=== PATIENT | male | born 1980 | race Caucasian/White ===

== ENCOUNTER → 2019-11-06 12:11 | Outpatient (BNVA) | payer MEDICARE, SELFPAY | PROVIDERS: PCP Nurse Practitioner Family; Visit Provider Psychiatry & Neurology Psychiatry | DX: F33.1 Major depressive disorder, recurrent, moderate (principal); F17.200 Nicotine dependence, unspecified, uncomplicated | CPT/HCPCS: 99213 ==

== ENCOUNTER → 2020-01-22 12:51 | Outpatient (BNVA) | payer MEDICARE, SELFPAY | PROVIDERS: PCP Nurse Practitioner Family; Visit Provider Psychiatry & Neurology Psychiatry | DX: F17.200 Nicotine dependence, unspecified, uncomplicated (principal); F33.1 Major depressive disorder, recurrent, moderate; F41.1 Generalized anxiety disorder | CPT/HCPCS: 99213 ==

== ENCOUNTER → 2020-04-15 07:42 | Outpatient (BNVA) | payer MEDICARE, SELFPAY | PROVIDERS: PCP Nurse Practitioner Family; Visit Provider Psychiatry & Neurology Psychiatry | DX: F33.1 Major depressive disorder, recurrent, moderate (principal); F41.1 Generalized anxiety disorder; F17.200 Nicotine dependence, unspecified, uncomplicated | CPT/HCPCS: 99213 ==

== ENCOUNTER 2020-05-17 11:13 | Emergency (ER) | payer MEDICARE, SELFPAY ==
[2020-05-17 11:23] VITALS: BMI 29.0
[2020-05-17 11:26] VITALS: BP 153/102; PULSE 86; RESP 18; TEMP 36.8; O2SAT 95
--- NOTE | 2020-05-17 11:38 | CTR_ITS ---
PROCEDURE INFORMATION: Exam: CT Abdomen And Pelvis Without And With Contrast Exam date and time: 05/17/2020 11:42 AM Age: 39 years old Clinical indication: Abdominal pain; Patient HX: Hematuria lower abd pain; Additional info: Stone v infection TECHNIQUE: Imaging protocol: Computed tomography of the abdomen and pelvis without and with intravenous contrast. Radiation optimization: All CT scans at this facility use at least one of these dose optimization techniques: automated exposure control; mA and/or kV adjustment per patient size (includes targeted exams where dose is matched to clinical indication); or iterative reconstruction. Contrast material: OMNI 300; Contrast volume: 95 ml; Contrast route: INTRAVENOUS (IV); COMPARISON: CT Abdomen/Pelvis Renal [id number] 09/03/2019 10:10 PM RADIATION DOSE METRICS: Total DLP (mGy-cm): 1399.25 FINDINGS: Lungs: Lingular calcified pulmonary parenchymal granuloma. Mediastinal space: Distal thoracic esophageal wall thickening redemonstrated. Liver: A minor arterial phase perfusion defect of the hepatic left lobe medial segment is noted adjacent to the falciform ligament fissure, a normal variant. Gallbladder and bile ducts: Gallbladder luminal distention is present measuring 4.8 cm. Mildly hyperattenuating intraluminal gallbladder sludge. No intraluminal calculus identified. Pancreas: Severe pancreatic atrophy. Spleen: The spleen is borderline enlarged measuring 13.1 cm longitudinally. Adrenals: Normal. No mass. Kidneys and ureters: Right renal calculi (2), the largest in the upper pole measuring 2.3 mm. No evidence of obstructive uropathy. Stomach and bowel: Unremarkable. No obstruction. No mucosal thickening. Appendix: The vermiform appendix is normal. Intraperitoneal space: Unremarkable. No free air. No significant fluid collection. Vasculature: Infrarenal abdominal aortic aneurysm is present measuring 2.9 cm AP dimension, 3.3 cm transverse dimension (previously 2.9 x 3.1 cm, remeasured). There is no evidence of rupture or leakage. Enhancing aortic wall measuring up to 5.9 mm thickness (series 3, image 45; compare series 2, image 45) Severe proximal celiac artery stenosis. Severe proximal right renal artery stenosis. Moderate proximal left renal artery stenosis. Left pelvic phleboliths. The iliac arteries show mild bilateral atherosclerotic calcifications without evidence of aneurysm. The main portal vein measures 16.3 mm. Lymph nodes: No enlarged lymph nodes. Bladder: The urinary bladder is partially decompressed and somewhat difficult to assess. Reproductive: Unremarkable as visualized. Bones/joints: Unremarkable. No acute fracture. Soft tissues: Unremarkable. CT/CT abdomen pelvis wo/w [id number] IMPRESSION: 1. Right renal calyceal lithiasis. 2. Infrarenal abdominal aortic aneurysm (slight interval increase in size), which is likely secondary to aortitis. Clinical correlation is recommended. 3. Severe proximal celiac artery stenosis. 4. Severe proximal right renal artery stenosis. 5. Moderate proximal left renal artery stenosis. 6. Distended gallbladder with gallbladder sludge. Gallbladder sonography may be helpful if clinically indicated. 7. Possible portal venous hypertension. 8. Borderline splenomegaly. 9. Distal thoracic esophagitis again suggested. Clinical correlation with the patient's specific symptomatology is recommended. Radiation Dose CTDIVOL = (mGy): DLP = 1399.25 (mGy-cm)
[2020-05-17 11:52] VITALS: RESP 18; O2SAT 98
[2020-05-17] MEDS: morphine 4 mg/mL SDV 1 mL IVP (11:52)
[2020-05-17] MEDS: ondansetron 2 mg/ML SDV 2 mL 4 MG IVP (11:53)
[2020-05-17] MEDS: sodium chloride 0.9% 1,000 ML 999 ML IV (11:53)
[2020-05-17 12:05] LABS: Basophils # 0.1 10^3/uL (0.0-0.1); Basophils % 0.6 %; Eosinophils # 0.1 10^3/uL (0.0-0.8); Eosinophils % 1.1 %; Hematocrit 46.7 % (42.0-52.0); Lymphocytes # 1.8 10^3/uL (0.8-4.8); Lymphocytes % 20.9 %; Mean Corpuscular HGB Conc 32.1 g/dL (30.0-36.0); Mean Corpuscular Hemoglobin 31.4 pg (28.0-34.0); Mean Corpuscular Volume 97.9 fL (80-94); Mean Platelet Volume 10.6 fL (7.4-10.4); Monocytes # 0.4 10^3/uL (0.2-0.9); Monocytes % 5.2 %; Neutrophils # 6.07 10^3/uL (1.8-7.7); Neutrophils % 71.8 %; Nucleated Red Blood Cells % 0 %; Platelet Count 239 10^3/cmm (130-400); Red Blood Count 4.77 10^6/uL (4.1-5.3); Red Cell Distribution Width 14.1 % (12.1-15.1); White Blood Count 8.5 10^3/uL (4.0-10.0)
[2020-05-17] MEDS: iohexol 300 mg/mL 100 mL Btl IV (12:05)
[2020-05-17 12:15] LABS: Alanine Aminotransferase 27 U/L (0-41); Albumin Level 4.8 g/dL (3.5-5.2); Alkaline Phosphatase 93 IU/L (40-130); Aspartate Amino Transferase 22 U/L (0-40); Blood Urea Nitrogen 8 mg/dL (6-20); Calcium 9.9 mg/dL (8.5-10.5); Carbon Dioxide 26 mmol/L (22-29); Chloride 99 mmol/L (98-107); Globulin 3.3 g/dL (1.3-4.6); Glomerular Filtration Rate 107.6 mL/min (90-130); Glucose 100 mg/dL (65-115); Osmolality Calculated 278 mOsm/kg (285-295); Sodium 136 mmol/L (136-145); Total Bilirubin 0.6 mg/dL (0.15-1.2); Total Protein 8.1 g/dL (6.6-8.7)
[2020-05-17 12:16] LABS: Lactate (Lactic Acid level) 0.9 mmol/L (0.5-2.2)
--- NOTE | 2020-05-17 12:39 | W.ED.ABDPA2 ---
HPI - Abdominal Pain General: Chief Complaint: Abdominal Pain Stated Complaint: abd pain/poss kidney stones Time Seen by Provider: 05/17/20 11:32 History of Present Illness: HPI narrative: patient presents with a complaint of suprapubic abdominal pain. He also reports hematuria and also some mucus in his urine. A history of kidney stones and states the symptoms are consistent with what he has had in the past. MD elicited complaint: abdominal pain Pertinent past history: kidney stones Onset (ago): day(s) Pain Consistency: constant Location: Suprapubic Severity: similar to previous episodes Quality: stabbing and sharp Radiation: none Migration to: no migration Exacerbating factors: movement Relieving factors: nothing Associated Symptoms: Reports nausea Review of Systems General: Reports: 10 or more systems reviewed and unremarkable except in HPI and below GI: Reports: nausea PFSH ED PFSH: Medical History High blood pressure Surgical History H/O heart artery stent Social History Smoking and tobacco status: current every day smoker cigarettes Packs smoked per day: 1 Years cigarettes smoked: 20 Quit status (tobacco): has tried quititng Number of times tried to quit tobacco: 2 Second hand smoke exposure: Yes Smoking risk assessment/counseling performed?: No Physical Exam Const: COMMON NORMALS: no acute distress, patient oriented x3, no limitations and alert HENMT: COMMON NORMALS: normocephalic, atraumatic, external ears normal and Normal external nose present HEAD & SCALP: normocephalic and atraumatic FACE & SINUS: normal facial exam NOSE: Normal external nose present EXTERNAL EAR: Yes external ears normal MOUTH: Normal oral and palatal mucosa present Neck/C-Spine: COMMON NORMALS: full ROM, no lymphadenopathy, supple, no meningeal signs and no JVD GENERAL: Yes normal visual inspection Resp: COMMON NORMALS: normal respiratory effort, No retractions, No use of accessory muscles and clear to auscultation bilaterally AUSCULTATION: clear to auscultation bilaterally Cardio: COMMON NORMALS: no JVD, regular rate and regular rhythm RATE: regular rate RHYTHM: regular rhythm GI: COMMON NORMALS: Normal to inspection, nondistended, normoactive bowel sounds present, Soft to palpation, No hepatosplenomegaly present and no masses INSPECTION: Yes normal to inspection AUSCULTATION: Yes normoactive bowel sounds PALPATION: Yes Soft to palpation and Yes No hepatosplenomegaly present PERCUSSION: normal to percussion : COMMON NORMALS: Yes no CVA tenderness BLADDER/KIDNEY EXAM: Yes no CVA tenderness Back/Pelvis: COMMON NORMALS: no CVA tenderness, thoracic and lumbar spine normal to inspection, no thoracic nor lumbar tenderness, thoraco-lumbar ROM normal and straight leg raise negative bilaterally Extremity: COMMON NORMALS: normal to inspection, full ROM, capillary refill normal, no joint enlargement, no clubbing, cyanosis or edema, no calf tenderness and no pedal edema Neuro: COMMON NORMALS: patient oriented x3, moves all extremities, no focal motor deficits and no sensory deficits noted SENSORIUM/ORIENTATION: Yes alert MENINGEAL SIGNS: Yes no meningeal signs Psych: COMMON NORMALS: mental status grossly normal, Normal thought process present, cooperative, normal affect and speech normal SPEECH: Yes normal speech THOUGHT PROCESS: Normal thought process present Skin: COMMON NORMALS: no rashes or lesions noted, no wounds, turgor normal, no jaundice, no petechiae and no mottling GENERAL SKIN EXAM: no rashes or lesions noted and turgor normal Course Vital Signs: Vital signs: Vital Signs Temperature 98.2 F 05/17/20 11:26 Pulse Rate 86 05/17/20 11:26 Respiratory Rate 18 05/17/20 13:32 Blood Pressure 153/102 05/17/20 11:26 Pulse Oximetry 98 05/17/20 13:32 MDM - Abdominal Pain Lab Data: Labs: Lab Results 05/17/20 05/17/20 05/17/20 Range/Units 11:41 11:41 11:45 WBC 8.5 (4.0-10.0) 10^3/ uL RBC 4.77 (4.1-5.3) 10^6/u L Hgb 15.0 (11.7-16.6) g/dL Hct 46.7 (42.0-52.0) % MCV 97.9 H (80-94) fL MCH 31.4 (28.0-34.0) pg MCHC 32.1 (30.0-36.0) g/dL RDW 14.1 (12.1-15.1) % Plt Count 239 (130-400) 10^3/c mm MPV 10.6 H (7.4-10.4) fL Neut % (Auto) 71.8 % Lymph % (Auto) 20.9 % [place] % (Auto) 5.2 % Eos % (Auto) 1.1 % Baso % (Auto) 0.6 % Neut # (Auto) 6.07 (1.8-7.7) 10^3/u L Lymph # (Auto) 1.8 (0.8-4.8) 10^3/u L [place] # (Auto) 0.4 (0.2-0.9) 10^3/u L Eos # (Auto) 0.1 (0.0-0.8) 10^3/u L Baso # (Auto) 0.1 (0.0-0.1) 10^3/u L Nucleated RBC % (a uto) 0 % Nucleated RBCs # 0.0 /100WBC Sodium 136 (136-145) mmol/L Potassium 4.0 (3.5-5.1) mmol/L Chloride 99 (98-107) mmol/L Carbon Dioxide 26 (22-29) mmol/L Anion Gap 15.0 (5-19) BUN 8 (6-20) mg/dL Creatinine 0.8 (0.7-1.2) mg/dL GFR Calculation 107.6 (90-130) mL/min Glucose 100 (65-115) mg/dL Calculated Osmolal ity 278 L (285-295) mOsm/k g Lactate 0.9 (0.5-2.2) mmol/L Calcium 9.9 (8.5-10.5) mg/dL Total Bilirubin 0.6 (0.15-1.2) mg/dL AST 22 (0-40) U/L ALT 27 (0-41) U/L Alkaline Phosphata se 93 (40-130) IU/L Total Protein 8.1 (6.6-8.7) g/dL Albumin 4.8 (3.5-5.2) g/dL Globulin 3.3 (1.3-4.6) g/dL Urine Color (Yellow) Urine Appearance (CLEAR) Urine pH (5-7) Ur Specific Gravit y (1.005-1.030) Urine Protein (Negative) Urine Glucose (UA) (Normal) Urine Ketones (Negative) Urine Blood (Negative) Urine Nitrate (Negative) Urine Bilirubin (NEGATIVE) Urine Urobilinogen (Negative) mg/dL Ur Leukocyte Amelia ase (Negative) 05/17/20 Range/Units 13:13 WBC (4.0-10.0) 10^3/ uL RBC (4.1-5.3) 10^6/u L Hgb (11.7-16.6) g/dL Hct (42.0-52.0) % MCV (80-94) fL MCH (28.0-34.0) pg MCHC (30.0-36.0) g/dL RDW (12.1-15.1) % Plt Count (130-400) 10^3/c mm MPV (7.4-10.4) fL Neut % (Auto) % Lymph % (Auto) % [place] % (Auto) % Eos % (Auto) % Baso % (Auto) % Neut # (Auto) (1.8-7.7) 10^3/u L Lymph # (Auto) (0.8-4.8) 10^3/u L [place] # (Auto) (0.2-0.9) 10^3/u L Eos # (Auto) (0.0-0.8) 10^3/u L Baso # (Auto) (0.0-0.1) 10^3/u L Nucleated RBC % (a uto) % Nucleated RBCs # /100WBC Sodium (136-145) mmol/L Potassium (3.5-5.1) mmol/L Chloride (98-107) mmol/L Carbon Dioxide (22-29) mmol/L Anion Gap (5-19) BUN (6-20) mg/dL Creatinine (0.7-1.2) mg/dL GFR Calculation (90-130) mL/min Glucose (65-115) mg/dL Calculated Osmolal ity (285-295) mOsm/k g Lactate (0.5-2.2) mmol/L Calcium (8.5-10.5) mg/dL Total Bilirubin (0.15-1.2) mg/dL AST (0-40) U/L ALT (0-41) U/L Alkaline Phosphata se (40-130) IU/L Total Protein (6.6-8.7) g/dL Albumin (3.5-5.2) g/dL Globulin (1.3-4.6) g/dL Urine Color Yellow (Yellow) Urine Appearance Clear (CLEAR) Urine pH 7 (5-7) Ur Specific Gravit y 1.000 L (1.005-1.030) Urine Protein Neg (Negative) Urine Glucose (UA) Norm (Normal) Urine Ketones Negative (Negative) Urine Blood Neg (Negative) Urine Nitrate Negative (Negative) Urine Bilirubin Neg (NEGATIVE) Urine Urobilinogen Norm (Negative) mg/dL Ur Leukocyte Amelia ase Negative (Negative) Discharge Plan Discharge Patient Disposition: Home Clinical Impression: Arteriosclerotic vascular disease Abdominal pain Qualifiers: Abdominal location: unspecified location Qualified Code(s): R10.9 - Unspecified abdominal pain Condition: Stable Prescriptions: New Tylenol-Codeine #3 300-30 mg tablet 1 tab PO Q6H PRN (Reason: pain) Qty: 12 RF: 0 Lipitor 80 mg tablet 80 mg PO DAILY Qty: 30 RF: 1 No Action cyclobenzaprine 10 mg tablet 10 mg PO TID RF: 0 pantoprazole [Protonix] 20 mg tablet,delayed release (DR/EC) 20 mg PO .HS RF: 0 gabapentin 600 mg tablet 600 mg PO TID RF: 0 modafinil 200 mg tablet 400 mg PO QAM Qty: 60 RF: 2 duloxetine [Cymbalta] 30 mg capsule,delayed release(DR/EC) 60 mg PO DAILY Qty: 60 RF: 2 buspirone 10 mg tablet 10 mg PO TID Qty: 90 RF: 2 clopidogrel [Plavix] 75 mg tablet 75 mg PO DAILY Qty: 90 RF: 3 metoprolol succinate [Toprol XL] 25 mg tablet extended release 24 hr 25 mg PO BID Qty: 60 RF: 3 simvastatin 40 mg tablet 40 mg PO DAILY Qty: 30 RF: 5 Discharge Orders: Discharge Order (Routine); Ordered 05/17/20 Ordered By: Constantino Hoang Referrals: [facility] [Other] John Hayward NP [Primary Care Provider] - Patient Instructions: Cholecystitis (ED), Abdominal Pain (ED) Coding Level of Care Code ED Digital Design Engineer for Chg Fwd Exam Comprehensive
[2020-05-17 13:30] LABS: Add Urine Microscopic? NO
[2020-05-17 13:32] VITALS: RESP 18; O2SAT 98
[2020-05-17] MEDS: HYDROmorphone 1 mg/mL INJ 1 mL IVP (13:32)
[2020-05-17 13:38] LABS: Bilirubin Urine Neg (NEGATIVE); Blood Urine Neg (Negative); Glucose Urine UA Norm (Normal); Ketones Urine Negative (Negative); Leukocyte Esterase Urine Negative (Negative); Nitrate Urine Negative (Negative); Protein Urine Neg (Negative); Urine Appearance Clear (CLEAR); Urine Color Yellow (Yellow); Urobilinogen Urine Norm (Negative); pH Urine 7 (5-7)
--- NOTE | 2020-05-17 14:57 | P.CONIM_ITS ---
Providers/Reason For Consult Consulting Physican/Specialty*: Eleazar Rodriguez hospitalist Reason for Consult*: Abdominal pain Requesting Physcian: Joan WHEAT Primary Care Provider: John Hayward NP History of Present Illness History of Present Illness Tomas Pineda is a 39 year old male that presented to the emergency department with complaints of abdominal pain. Secondary to his abnormal CT findings, I was asked to see him. Patient reports he has had abdominal discomfort, perhaps the last several days. He reports this felt as if he had kidney stones again. He states 1 to 2 days ago he had some hematuria, and some mucus in his urine. Today he reports discomfort in the head and base of his penis, when he urinates. He reports that this can go away and fade slowly after urinating. He denies any abdominal pain to me currently. He denies any nausea to me. He denies any fever. While in the emergency department they checked a bladder scan demonstrating no urinary retention, and patient reports he has no blood in his urine currently. During the time I was taking his history and physical and asked the patient about drug use he got visibly upset, reporting that he does not use drugs and he is very offended. As I was talking about his social history in regards to caffeine intake the same occurred. Review of Systems General: Reports: 10 or more systems reviewed and unremarkable except in HPI and below Const: Denies: fever(s), chills or change in appetite Eyes: Denies: change in vision ENMT: Denies: throat pain Card: Denies: chest pain Resp: Denies: dyspnea GI: Denies: abdominal pain, nausea or constipation : Reports: difficulty urinating, dysuria and hematuria; Denies: flank pain or testicular pain Musc: Denies: neck pain Skin/Breast: Denies: rash Neuro: Denies: headache(s) Psych: Denies: anxiety or depression Endo: Denies: polyuria Deandre/Lymph: Denies: easy bruising All/Imm: Denies: urticaria Meds/Allergies Home Medications and Allergies Home Medications Medication Instructions Recorded Confirmed Last Taken Type gabapentin 600 mg tablet 600 mg PO TID 10/28/19 01/21/20 Unknown History cyclobenzaprine 10 mg tablet 10 mg PO TID 11/05/19 01/21/20 Unknown History pantoprazole 20 mg tablet,delayed 20 mg PO .HS tab 01/21/20 01/21/20 Unknown History release clopidogrel 75 mg tablet 75 mg PO DAILY #90 tab 02/26/20 Unknown Rx metoprolol succinate 25 mg 25 mg PO BID #60 tab 02/26/20 Unknown Rx tablet,extended release 24 hr simvastatin 40 mg tablet 40 mg PO DAILY #30 tab 02/26/20 Unknown Rx buspirone 10 mg tablet 10 mg PO TID #90 tab 04/15/20 04/15/20 Unknown Rx duloxetine 30 mg capsule,delayed 60 mg PO DAILY #60 cap 04/15/20 04/15/20 Unknown Rx release modafinil 200 mg tablet 400 mg PO QAM #60 tab 04/15/20 04/15/20 Unknown Rx acetaminophen-codeine 1 tab PO Q6H PRN #12 tab 05/17/20 Unknown Rx [Tylenol-Codeine #3] atorvastatin [Lipitor] 80 mg PO DAILY #30 tab 05/17/20 Unknown Rx Allergies Allergy/AdvReac Type Severity Reaction Status Date / Time naproxen AdvReac Intermediate Makes sick Verified 05/17/20 11:28 to stomach PFSH Acute PFSH: Medical History (Updated 05/17/20 @ 15:03 by Eleazar Rodriguez MD) Abdominal aortic aneurysm Coronary artery disease Generalized anxiety disorder High blood pressure Major depressive disorder, recurrent, moderate Nephrolithiasis Nicotine dependence, unspecified, uncomplicated Surgical History H/O heart artery stent Family History (Updated 05/17/20 @ 15:03 by Eleazar Rodriguez MD) Other CAD (coronary artery disease) Social History (Updated 05/17/20 @ 15:04 by Eleazar Rodriguez MD) Smoking and tobacco status: current every day smoker cigarettes Packs smoked per day: 1 Years cigarettes smoked: 20 Quit status (tobacco): has tried quititng Number of times tried to quit tobacco: 2 Second hand smoke exposure: Yes Smoking risk assessment/counseling performed?: No Alcohol intake: former Substance/Drug Use: never Vitals/I&O/Wt Last Vital Signs Temp 98.2 F 05/17/20 11:26 Pulse 86 05/17/20 11:26 Resp 18 05/17/20 13:32 BP 153/102 05/17/20 11:26 Pulse Ox 98 07/26/20 13:32 05/16/20 05/17/20 05/17/20 22:59 06:59 14:59 Intake Total 1000 / 1000 Balance 1000 / 1000 Weight last 48 hrs Weight 83.915 kg Physical Exam Narrative: EXAM NARRATIVE: General exam is a white male, no distress HEENT: Pupils equally round. Oropharynx clear. Neck is supple no lymphadenopathy or thyromegaly Cardiovascular regular rate and rhythm without murmur, no S3 or S4 Lungs clear no wheezing or crackles. Abdomen is soft nontender with positive bowel sounds. No obvious organomegaly. I cannot elicit any tenderness to palpation of all 4 quadrants of the abdomen. exam demonstrates a normal circumcised male. Testicular exam is normal. There is no evidence of hernia. There is no testicular pain or mass. Urethral meatus appears normal without any significant drainage currently. Extremities no cyanosis clubbing or edema, cap refill brisk Skin without rash Neuro no focal deficits Data Micro: Micro: Microbiology 05/17/20 11:55 Blood Culture - Pr eliminary Blood SPECIMEN [facility] 05/17/20 11:45 Blood Culture - Pr eliminary Blood SPECIMEN [facility] Other Data: Other data: Liver function tests are normal. Urinalysis is normal. Lactate is 0.9. CT abdomen pelvis demonstrates right renal lithiasis, slight enlargement of infrarenal abdominal aortic aneurysm with no evidence of dissection. Celiac artery stenosis, proximal right renal artery stenosis, moderate left renal artery stenosis, gallbladder with sludge, borderline splenomegaly, distal esophagitis are noted. A&P Assessment and plan (1) Abdominal pain: In description with me he denied any abdominal pain. He reported the discomfort was in his penis, when he urinated. He has seen blood when he urinated. This is all consistent with urethral fissure. I cannot say that he has not passed a stone recently. I discussed other causes of this such as trauma. As he has some discomfort in general in his bladder following passing of urine he could certainly use AZO to see if that has some effect. I discussed this with the emergency department physician. It does not appear that this discomfort is related to his vascular disease. Status: Acute Qualifiers: Abdominal location: unspecified location Qualified Code(s): R10.9 - Unspecified abdominal pain (2) Arteriosclerotic vascular disease: He has a tremendous amount of vascular disease with his aorta, celiac, renal arteries being affected and him having coronary disease. He will need to follow-up with his sawmill equipment operator regarding this. I recommend discontinuing his lovastatin and changing to Lipitor 80 mg daily. I have discussed this with his ER physician. I recommend not smoking, decrease tobacco but the patient became visibly upset with this recommendation along with when I talked to him regarding caffeine and during his social history ask if he had any drug use. I am not sure that he will take any recommendations such as this to heart. Status: Acute Additional A&P Information Coronary artery disease. Patient is to continue his Plavix Hyperlipidemia, I recommend changing to Lipitor, high-dose secondary to progression of vascular disease Hypertension. Blood pressure elevated today. I discussed with the patient I recommend he discontinue his modafinil GERD with history of esophagitis on CT scan. Continue Protonix. Consider follow-up with primary care provider for consideration of EGD Depression/anxiety. This may be an obstacle to changing his lifestyle in regards to tobacco. He visibly became upset with any kind of questioning of tobacco use. Consult Attestations Medical Necessity Statement: Not applicable Time Spent in Patient Care: Greater than 35 minutes Coding Level of Care Code Acute Adult Education Professional for Chg Fwd Diagnoses Abdominal pain R10.9 Abdominal location: unspecified location Arteriosclerotic vascular disease I70.90
[2020-05-17 15:05] VITALS: BP 158/94; PULSE 84; RESP 16; O2SAT 96
== END 2020-05-17 15:07 | disposition home or self-care (01) ==
PROVIDERS: Emergency Provider Family Medicine; PCP Nurse Practitioner Family
DX: I70.90 Unspecified atherosclerosis (principal); Z79.02 Long term (current) use of antithrombotics/antiplatelets; F17.210 Nicotine dependence, cigarettes, uncomplicated
CPT/HCPCS: 12345; 36415; 74178; 80053; 81003; 83605; 85025; 87040; 87491; 87591; 96360; 96361; 96374; 96375; 99283; J1170; J2270; J2405; J7030; Q9967

== ENCOUNTER 2020-06-09 06:59 | Outpatient (CLI) | payer MEDICARE, SELFPAY ==
--- NOTE | 2020-06-09 07:07 | US_ITS ---
WS: [id number] RIGHT UPPER QUADRANT ULTRASOUND HISTORY: GALLBLADDER DISEASE COMPARISON: None available. Liver: 19.2 cm in length. Moderate enlargement the liver with low attenuation from hepatic steatosis. Well-rounded hypoechoic area near the gallbladder is probably an area of hepatic steatosis. No mass was identified on the recent CT from 05/17/2020. Gallbladder: Well distended gallbladder with no stones or sludge identified. Gallbladder is slightly enlarged but there is no pericholecystic fluid or gallbladder wall thickening. CBD: 0.5 cm Pancreas: The visualized. Right kidney: 10.2 cm in length. Normal echogenicity with no mass or hydronephrosis. Aorta and IVC: Unremarkable. No ascites. US/US abdomen limited [id number] IMPRESSION: 1. Mildly hydropic gallbladder without stones or sludge or evidence for acute cholecystitis. 2. Moderate hepatomegaly and hepatic steatosis.
== END 2020-06-09 07:00 | disposition home or self-care (01) ==
PROVIDERS: PCP Nurse Practitioner Family; Visit Provider Nurse Practitioner Family
DX: K82.9 Disease of gallbladder, unspecified (principal); R16.0 Hepatomegaly, not elsewhere classified; K76.0 Fatty (change of) liver, not elsewhere classified
CPT/HCPCS: 76705

== ENCOUNTER 2020-06-11 07:04 | Outpatient (CLI) | payer MEDICARE, SELFPAY ==
--- NOTE | 2020-06-11 07:15 | NM_ITS ---
WS: [id number] EXAM: NM hepatobiliary w phar* [id number] DATE OF EXAMINATION: 06/11/2020, 0925 hours COMPARISON: Right upper quadrant ultrasound from 06/09/2020. HISTORY: 39 years old with gallbladder disease. Complaining of right upper quadrant abdominal pain. TECHNIQUE: 8.2 mCi of technetium 99m mebrofenin was injected intravenously. Serial scintigraphic images overlyin g the right upper quadrant were obtained through 60 minutes. Subsequently 8 ounces of Ensure was calista sted with ejection fraction calculated. FINDINGS: There is normal uptake of the tracer by the liver parenchyma. Tracer activity seen within the gallbla dder as well as the biliary system by the 5 minute frame. No tracer activity is seen within the bowel by 60 minutes but the gallbladder continues to uptake tracer activity. After ingestion of Ensure the ejection fraction is calculated at 82%. NM/NM hepatobiliary w phar* [id number] IMPRESSION: Normal hepatobiliary scan. No findings of obstruction. Normal ejection fraction estimated at 82%.
== END 2020-06-11 07:05 | disposition home or self-care (01) ==
PROVIDERS: PCP Nurse Practitioner Family; Visit Provider Nurse Practitioner Family
DX: K82.9 Disease of gallbladder, unspecified (principal)
CPT/HCPCS: 78227; A9537

== ENCOUNTER 2020-08-17 16:27 | Emergency (ER) | payer MEDICARE, SELFPAY ==
[2020-08-17 16:51] VITALS: BP 169/101; PULSE 81; RESP 14; TEMP 36.8; O2SAT 99; BMI 29.0
--- NOTE | 2020-08-17 17:14 | W.ED.BACK ---
HPI - Back Pain/Injury General: Chief Complaint: Back Pain/Injury Stated Complaint: Back Pain Time Seen by Provider: 08/17/20 17:05 History of Present Illness: HPI Narrative: Patient comes in complain about back pain with pain radiating down both legs. Patient has a history of chronic low back pain bulging herniated disc. Has been in pain clinic for many years and was fired 2 years ago. Has appoint with pain clinic this coming week in [place]. Patient said he was lifting a motor yesterday and felt a pull on his back and is hurt ever since would like something to help with his discomfort. Denies any neurological deficits. MD elicited complaint: back pain Pertinent past history: prior back pain Onset (ago): day(s) Timing: constant Severity: moderate Similar Symptoms Previously: Yes Quality: aching Location: lumbar spine Radiation: buttocks, left upper leg and right upper leg Exacerbating factors: movement Relieving factors: immobilization Context: while lifting and turning/twisting Associated symptoms: Reports no associated symptoms; Deny abdominal pain, chills, fever(s), nausea or vomiting Review of Systems Const: Denies: fever(s), chills or body aches Eyes: Denies: change in vision or blurry vision ENMT: Denies: throat pain or nasal congestion Card: Denies: chest pain or dyspnea on exertion Resp: Denies: dyspnea, productive cough or non-productive cough GI: Denies: abdominal pain, nausea or vomiting : Denies: difficulty urinating Musc: Reports: back pain; Denies: extremity pain Skin/Breast: Denies: rash Neuro: Denies: headache(s) Psych: Denies: anxiety or depression Deandre/Lymph: Denies: easy bruising PFSH ED PFSH: Medical History (Updated 08/17/20 @ 17:14 by SHASHANK Shea) Abdominal aortic aneurysm Coronary artery disease Generalized anxiety disorder High blood pressure Major depressive disorder, recurrent, moderate Nephrolithiasis Nicotine dependence, unspecified, uncomplicated Surgical History (Updated 06/08/20 @ 12:53 by Malika Adam LPN) H/O heart artery stent Family History (Updated 06/08/20 @ 12:53 by Malika Adam LPN) Other CAD (coronary artery disease) Denies family history of Diabetes Hyperlipidemia Hypertension Social History (Updated 06/08/20 @ 12:54 by Malika Adam LPN) Smoking and tobacco status: current every day smoker cigarettes Packs smoked per day: 1 Years cigarettes smoked: 20 Quit status (tobacco): has tried quititng Number of times tried to quit tobacco: 2 Second hand smoke exposure: Yes Smoking risk assessment/counseling performed?: No Alcohol intake: former Physical Exam Const: COMMON NORMALS: no acute distress, average body habitus and patient oriented x3 HENMT: COMMON NORMALS: normocephalic HEAD & SCALP: normal to inspection and normocephalic FACE & SINUS: normal facial exam Eye: COMMON NORMALS: conjunctivae normal GENERAL EYE: appearance normal, both eyes and all related structures CONJUNCTIVA: Yes conjunctivae normal Neck/C-Spine: COMMON NORMALS: no JVD Chest: COMMONS NORMALS: normal inspection of the chest Resp: COMMON NORMALS: normal respiratory effort Cardio: COMMON NORMALS: no JVD GI: COMMON NORMALS: Normal to inspection, nondistended, normoactive bowel sounds present Back/Pelvis: LUMBAR SPINE/LOWER BACK: Yes straight leg raise positive right and Yes straight leg raise positive left Extremity: COMMON NORMALS: normal to inspection Neuro: COMMON NORMALS: patient oriented x3 Course Vital Signs: Vital signs: Vital Signs Temperature 98.2 F 08/17/20 16:51 Pulse Rate 81 08/17/20 16:51 Respiratory Rate 14 08/17/20 16:51 Blood Pressure 169/101 08/17/20 16:51 Pulse Oximetry 99 08/17/20 16:51 Discharge Plan Discharge Patient Disposition: Home Clinical Impression: Lumbar radiculopathy Condition: Stable Prescriptions: New prednisone 20 mg tablet 60 mg PO DAILY 5 Days Qty: 15 RF: 0 baclofen 10 mg tablet 10 mg PO TID Qty: 14 RF: 0 No Action pantoprazole [Protonix] 20 mg tablet,delayed release (DR/EC) 40 mg PO .HS RF: 0 gabapentin 600 mg tablet 800 mg PO TID RF: 0 buspirone 10 mg tablet 10 mg PO TID Qty: 90 RF: 2 clopidogrel [Plavix] 75 mg tablet 75 mg PO DAILY Qty: 90 RF: 3 simvastatin 40 mg tablet 40 mg PO DAILY Qty: 30 RF: 5 metoprolol succinate [Toprol XL] 25 mg tablet extended release 24 hr 25 mg PO BID Qty: 60 RF: 3 Discharge Orders: Discharge Order (Routine); Ordered 08/17/20 Ordered By: Ender Travis Referrals: John Hayward NP [Primary Care Provider] - Discharge Diet: Usual diet Discharge Activity: Increase activity as tolerated Patient Instructions: Chronic Back Pain (ED) Activity Restrictions/Additional Instructions: Follow-up with medical provider as directed. Take medications as prescribed. Return to the ER or your medical provider if condition worsens. Please read and understand discharge instructions. If any questions ask please. No lifting over 10 pounds for next 4 weeks apply ice to back as needed follow-up pain clinic as scheduled Discharge Date/Time: 08/17/20 17:29 Coding Level of Care Code ED Advertising Strategist for Chg Fwd Exam Comprehensive
[2020-08-17] MEDS: predniSONE 20 mg Tablet 60 MG PO (17:20)
[2020-08-17] MEDS: ketorolac 60 mg/2 mL INJ IM (17:22)
== END 2020-08-17 17:29 | disposition home or self-care (01) ==
PROVIDERS: Emergency Provider Nurse Practitioner Family; PCP Nurse Practitioner Family
DX: M54.16 Radiculopathy, lumbar region (principal); Z79.02 Long term (current) use of antithrombotics/antiplatelets; I25.10 Atherosclerotic heart disease of native coronary artery without angina pectoris; F17.210 Nicotine dependence, cigarettes, uncomplicated
CPT/HCPCS: 12345; 96372; 99281; 99283; J1885; J7512

== ENCOUNTER 2021-05-06 14:38 | Emergency (ER) | payer MEDICARE, SELFPAY ==
[2021-05-06 15:37] VITALS: BP 158/101; PULSE 82; RESP 18; TEMP 36.7; O2SAT 96; BMI 28.1
--- NOTE | 2021-05-06 15:44 | ED_ITS ---
HPI - Dental/Oral General: Chief complaint: Dental/Oral Stated complaint: toothache Time Seen by Provider: 05/06/21 15:43 History of Present Illness: HPI Narrative: Patient is a 40-year-old male comes to the ED with dental pain. Dental pain started approximately 3 days ago. Patient says he broke off his right back molar 3 days ago and that is when the pain started. Pain has progressed and gotten worse. He rates his pain here in the ED at 10 out of 10 says it is constant. He tried some oral lidocaine rinse that did not help. Today the pain is radiating up into his face and head as well. Patient says he has an appointment scheduled with a dentist on Monday, May 09. Associated symptoms: Denies fever(s) or odynophagia Review of Systems Const: Denies: fever(s), chills or fatigue Eyes: Denies: change in vision or eye discomfort ENMT: Reports: dental pain; Denies: throat pain, odynophagia, nasal discharge or nasal congestion Card: Denies: chest pain, palpitations, edema, swelling of feet/ankles, dyspnea on exertion or orthopnea Resp: Denies: dyspnea, productive cough or non-productive cough GI: Denies: abdominal pain, nausea, vomiting, diarrhea, constipation or hematochezia : Denies: flank pain, difficulty urinating, dysuria or hematuria Musc: Denies: neck pain, back pain or extremity swelling Skin/Breast: Denies: rash or new lesions Neuro: Denies: headache(s), numbness in extremities or weakness in extremities [facility] ED PFSH: Medical History Abdominal aortic aneurysm Coronary artery disease Generalized anxiety disorder High blood pressure Major depressive disorder, recurrent, moderate Nephrolithiasis Nicotine dependence, unspecified, uncomplicated Surgical History H/O heart artery stent Family History Other CAD (coronary artery disease) Denies family history of Diabetes Hyperlipidemia Hypertension Social History Smoking and tobacco status: current every day smoker cigarettes Packs smoked per day: 1 Years cigarettes smoked: 20 Quit status (tobacco): has tried quititng Number of times tried to quit tobacco: 2 Second hand smoke exposure: Yes Smoking risk assessment/counseling performed?: No Alcohol intake: former Physical Exam Const: COMMON NORMALS: patient oriented x3 and alert GENERAL APPEARANCE: cooperative; not comfortable (Patient appears uncomfortable due to pain) HENMT: COMMON NORMALS: normocephalic HEAD & SCALP: normocephalic MOUTH: Normal oral and palatal mucosa present TEETH & GINGIVA: Yes abnormal tooth and associated gingiva upper right third molar tender and with associated gingival edema, Yes caries and Yes poor dentition THROAT: posterior oropharynx normal and uvula midline Neck/C-Spine: COMMON NORMALS: supple GENERAL: Yes normal visual inspection Resp: COMMON NORMALS: normal respiratory effort, No retractions, No use of accessory muscles and clear to auscultation bilaterally AUSCULTATION: clear to auscultation bilaterally Cardio: COMMON NORMALS: regular rate, regular rhythm, S1 normal heart sound present, S2 normal heart sound present, No gallops present (Cardio), No clicks present (Cardio), No murmurs present (Cardio) and Peripheral pulses 2+ throughout RATE: regular rate RHYTHM: regular rhythm HEART SOUNDS: S1 normal heart sound present and S2 normal heart sound present PERIPHERAL PULSES: Peripheral pulses 2+ throughout GI: COMMON NORMALS: Normal to inspection, nondistended, normoactive bowel sounds present, Soft to palpation, non-tender and no masses PALPATION: Yes Soft to palpation : COMMON NORMALS: Yes no CVA tenderness BLADDER/KIDNEY EXAM: Yes no CVA tenderness Back/Pelvis: COMMON NORMALS: no CVA tenderness Extremity: GENERAL: Yes normal exam except as noted Neuro: COMMON NORMALS: patient oriented x3 and moves all extremities SENSORIUM/ORIENTATION: Yes alert Skin: GENERAL SKIN EXAM: dry skin Course Vital Signs: Vital signs: Vital Signs Temperature 98.1 F 05/06/21 15:37 Pulse Rate 82 05/06/21 15:37 Respiratory Rate 18 05/06/21 15:37 Blood Pressure 158/101 05/06/21 15:37 Pulse Oximetry 96 05/06/21 15:37 Discharge Plan Discharge Patient Disposition: Home Clinical Impression: Pain, dental Condition: Stable Prescriptions: New clindamycin HCl 150 mg capsule 300 mg PO QID 7 Days Qty: 56 RF: 0 No Action pantoprazole [Protonix] 20 mg tablet,delayed release (DR/EC) 40 mg PO .HS RF: 0 gabapentin 600 mg tablet 800 mg PO TID RF: 0 buspirone 10 mg tablet 10 mg PO TID Qty: 90 RF: 2 simvastatin 40 mg tablet 40 mg PO DAILY Qty: 90 RF: 3 metoprolol succinate [Toprol XL] 25 mg tablet extended release 24 hr 25 mg PO BID Qty: 60 RF: 3 clopidogrel [Plavix] 75 mg tablet 75 mg PO DAILY Qty: 90 RF: 0 baclofen 10 mg tablet 10 mg PO TID Qty: 14 RF: 0 Discharge Orders: Discharge ED (Routine); Ordered 05/06/21 Ordered By: Jimmy Hyde Referrals: John Hayward NP [Primary Care Provider] - Discharge Diet: Regular Discharge Activity: Resume usual activity Patient Instructions: Opioid Safety Activity Restrictions/Additional Instructions: Follow-up with your dentist at your scheduled appointment this coming Monday for further evaluation. Take medications as prescribed. Return to the ER or your medical provider if condition worsens. Please read and understand discharge instructions. Thank you for choosing [facility] for your healthcare needs today. Please realize this is an emergency room and that we are providing you with a medical screening exam and this may not be complete and all inclusive of all the testing and or work up that you may need to determine your ailment or severity of your illness. It is very important that you follow up as instructed or that you return to the Emergency Department should you have concerns or if your condition changes or worsens in any way. Coding Level of Care Code ED Zinc Etcher for Kristy Phelan Exam Comprehensive
[2021-05-06] MEDS: clindamycin 150 mg Capsule 300 MG PO (16:12)
[2021-05-06] MEDS: HYDROcodone-acetaminophen 7.5-325 mg Tablet 1 TAB PO (16:12)
== END 2021-05-06 16:27 | disposition home or self-care (01) ==
PROVIDERS: Emergency Provider Physician Assistant; PCP Nurse Practitioner Family
DX: K08.89 Other specified disorders of teeth and supporting structures (principal); Z79.02 Long term (current) use of antithrombotics/antiplatelets; I25.10 Atherosclerotic heart disease of native coronary artery without angina pectoris; F17.210 Nicotine dependence, cigarettes, uncomplicated
CPT/HCPCS: 99283

== ENCOUNTER 2021-05-26 14:52 | Emergency (ER) | payer MEDICARE, SELFPAY ==
[2021-05-26 15:07] VITALS: BP 134/86; PULSE 88; RESP 19; TEMP 36.7; O2SAT 96; BMI 28.1
[2021-05-26 16:58] VITALS: BP 139/86; PULSE 72; RESP 16; O2SAT 96
[2021-05-26 16:59] LABS: Basophils % 0.3 %; Eosinophils # 0.1 10^3/uL (0.0-0.8); Eosinophils % 0.9 %; Hematocrit 42.6 % (42.0-52.0); Hemoglobin 13.9 g/dL (11.7-16.6); Lymphocytes # 1.3 10^3/uL (0.8-4.8); Mean Corpuscular HGB Conc 32.6 g/dL (30.0-36.0); Mean Corpuscular Hemoglobin 31.7 pg (28.0-34.0); Mean Corpuscular Volume 97.3 fL (80-94); Mean Platelet Volume 10.6 fL (7.4-10.4); Monocytes # 0.4 10^3/uL (0.2-0.9); Monocytes % 6.5 %; Neutrophils # 4.67 10^3/uL (1.8-7.7); Nucleated Red Blood Cells % 0 %; Platelet Count 206 10^3/cmm (130-400); Red Blood Count 4.38 10^6/uL (4.1-5.3); Red Cell Distribution Width 13.8 % (12.1-15.1); White Blood Count 6.5 10^3/uL (4.0-10.0)
--- NOTE | 2021-05-26 17:31 | W.ED.ABDPA2 ---
HPI - Abdominal Pain General: Chief Complaint: Abdominal Pain Stated Complaint: abdominal pain Time Seen by Provider: 05/26/21 16:54 History of Present Illness: HPI narrative: Patient is a 40-year-old male with a history of HLD, HTN, ?AAA (per patient normal), celiac artery stenosis emergency room with gradually worsening lower abdominal cramps and intermittent pain for last 4 days. Patient states the pain started at rest and has since then comes on every 15 to 30 minutes. Patient has a history of renal colic. Described pain is very different from prior renal colic. No urinary symptoms include hematuria, dysuria, or penile discharge. Patient denies any other complaints. Denies any problem with bowel movements, melena or hematochezia. Patient has no prior abdominal surgeries. Patient denies any fever chills, nausea or vomiting, difficulty tolerating p.o. respiratory support chest pain, focal weakness. onset: 3 days ago duration: 3 days severity: moderate location: home Review of Systems Narrative: Constitutional: No fever, no chills. HEENT: No vision changes CV: No chest pain, no palpitations PULM: no cough, no dyspnea. GI: + lower abdominal pain, no N/V/D. : No dysuria MSKEL: No muscle pain SKIN: No new rashes, no lesions. NEURO: No headache, no focal weakness. HEME: No visible bruises PSYCH: Normal mood PFSH ED PFSH: Medical History Abdominal aortic aneurysm Coronary artery disease Generalized anxiety disorder High blood pressure Major depressive disorder, recurrent, moderate Nephrolithiasis Nicotine dependence, unspecified, uncomplicated Surgical History H/O heart artery stent Family History Other CAD (coronary artery disease) Denies family history of Diabetes Hyperlipidemia Hypertension Social History Smoking and tobacco status: current every day smoker cigarettes Packs smoked per day: 1 Years cigarettes smoked: 20 Quit status (tobacco): has tried quititng Number of times tried to quit tobacco: 2 Second hand smoke exposure: Yes Smoking risk assessment/counseling performed?: No Alcohol intake: former Physical Exam Narrative: EXAM NARRATIVE: Head: Atraumatic Eyes: PERRL, conjunctiva without injection ENT: Mucous membrane moist NECK: Supple without lymphadenopathy LUNGS: Bilateral wheezes, mild increased work of breathing, no crackles/rhonchi CV: RRR ABDOMEN: Soft, mild RLQ and LLLQ lower abdominal tenderness, no guarding or rebound tenderness, no CVA tenderness, no Marino sign EXTREMITY: Normal ROM SKIN: No rash or erythema NEURO: Awake and alert. No focal motor deficits. PSYCH: Normal mood and affect. Course Vital Signs: Vital signs: Vital Signs Temperature 98.1 F 05/26/21 15:07 Pulse Rate 80 05/26/21 20:00 Respiratory Rate 18 05/26/21 20:00 Blood Pressure 150/93 05/26/21 20:00 Pulse Oximetry 98 05/26/21 20:00 MDM - Abdominal Pain MDM Narrative: Medical decision making narrative: 40-year-old male presenting to the emergency room with lower abdominal pain. On exam, patient has mild tenderness to palpation bilaterally in lower quadrant. On arrival, patient is hemodynamically stable. Laboratory evaluation was within normal limit today. CT scan showed no signs of acute infection of the abdomen. No signs of surgical abdomen. There is noted to be mild aortitis. However findings not consistent with patient's lower abdominal pain. I do not suspect that patient has any acute hemorrhage or fistula from the aorta. ON reassessment: Patient continues to have persistent left lower quadrant abdominal pain. Patient was given Tylenol with codeine emergency room without any improvement in symptoms. Discussed with patient that he may benefit from a few hours of observation to ensure we do not miss any pathology. Patient however verbalizes desire to go home. Have explained the risks of leaving the hospital prior to reevaluation and the need for me to converse with E-rad provider to ensure we do not miss any pathologies. Patient verbalized understanding has capacity at this time. Patient decides to leave AGAINST MEDICAL ADVICE. I have given strict return precautions for any worsening symptoms including fever chills, worsening pain, nausea vomiting, inability to tolerate p.o., or any new concerning complaints. Disposition: Leave AGAINST MEDICAL ADVICE Lab Data: Labs: Lab Results 05/26/21 05/26/21 05/26/21 Range/Units 16:50 16:50 17:25 WBC 6.5 (4.0-10.0) 10^3/ uL RBC 4.38 (4.1-5.3) 10^6/u L Hgb 13.9 (11.7-16.6) g/dL Hct 42.6 (42.0-52.0) % MCV 97.3 H (80-94) fL MCH 31.7 (28.0-34.0) pg MCHC 32.6 (30.0-36.0) g/dL RDW 13.8 (12.1-15.1) % Plt Count 206 (130-400) 10^3/c mm MPV 10.6 H (7.4-10.4) fL Neut % (Auto) 72.0 % Lymph % (Auto) 20.0 % Cecil % (Auto) 6.5 % Eos % (Auto) 0.9 % Baso % (Auto) 0.3 % Neut # (Auto) 4.67 (1.8-7.7) 10^3/u L Lymph # (Auto) 1.3 (0.8-4.8) 10^3/u L Cecil # (Auto) 0.4 (0.2-0.9) 10^3/u L Eos # (Auto) 0.1 (0.0-0.8) 10^3/u L Baso # (Auto) 0.0 (0.0-0.1) 10^3/u L Nucleated RBC % (a uto) 0 % Nucleated RBCs # 0.0 /100WBC PT (12.1-14.9) SECO NDS INR (0.8-1.2) APTT (23.9-36.7) SECO NDS Sodium 135 L (136-145) mmol/L Potassium 4.2 (3.5-5.1) mmol/L Chloride 104 (98-107) mmol/L Carbon Dioxide 22 (22-29) mmol/L Anion Gap 13.2 (5-19) BUN 11 (6-20) mg/dL Creatinine 0.7 (0.7-1.2) mg/dL GFR Calculation 124.9 (90-130) mL/min Glucose 101 (65-115) mg/dL Calculated Osmolal ity 280 L (285-295) mOsm/k g Lactate (0.5-2.2) mmol/L Calcium 8.8 (8.5-10.5) mg/dL Total Bilirubin 0.5 (0.15-1.2) mg/dL AST 22 (0-40) U/L ALT 33 (0-41) U/L Alkaline Phosphata se 101 (40-130) IU/L Total Protein 7.8 (6.6-8.7) g/dL Albumin 4.1 (3.5-5.2) g/dL Globulin 3.7 (1.3-4.6) g/dL Lipase 8 L (13-60) U/L Urine Color Yellow (Yellow) Urine Appearance Clear (CLEAR) Urine pH 7 (5-7) Ur Specific Gravit y 1.005 (1.005-1.030) Urine Protein Neg (Negative) Urine Glucose (UA) Norm (Normal) Urine Ketones Negative (Negative) Urine Blood Neg (Negative) Urine Nitrate Negative (Negative) Urine Bilirubin Neg (Negative) Urine Urobilinogen Neg (Negative) mg/dL Ur Leukocyte Amelia ase Negative (Negative) Urine RBC None (0-2) /hpf Urine WBC None (0-5) /hpf Ur Squamous Epith Cells 0-4 H (0-5) /hpf Amorphous Sediment Not Reportable Urine Bacteria None (NONE) /hpf 05/26/21 05/26/21 Range/Units 19:00 19:00 WBC (4.0-10.0) 10^3/ uL RBC (4.1-5.3) 10^6/u L Hgb (11.7-16.6) g/dL Hct (42.0-52.0) % MCV (80-94) fL MCH (28.0-34.0) pg MCHC (30.0-36.0) g/dL RDW (12.1-15.1) % Plt Count (130-400) 10^3/c mm MPV (7.4-10.4) fL Neut % (Auto) % Lymph % (Auto) % Cecil % (Auto) % Eos % (Auto) % Baso % (Auto) % Neut # (Auto) (1.8-7.7) 10^3/u L Lymph # (Auto) (0.8-4.8) 10^3/u L Cecil # (Auto) (0.2-0.9) 10^3/u L Eos # (Auto) (0.0-0.8) 10^3/u L Baso # (Auto) (0.0-0.1) 10^3/u L Nucleated RBC % (a uto) % Nucleated RBCs # /100WBC PT 13.20 (12.1-14.9) SECO NDS INR 0.97 (0.8-1.2) APTT 33.3 (23.9-36.7) SECO NDS Sodium (136-145) mmol/L Potassium (3.5-5.1) mmol/L Chloride (98-107) mmol/L Carbon Dioxide (22-29) mmol/L Anion Gap (5-19) BUN (6-20) mg/dL Creatinine (0.7-1.2) mg/dL GFR Calculation (90-130) mL/min Glucose (65-115) mg/dL Calculated Osmolal ity (285-295) mOsm/k g Lactate 0.7 (0.5-2.2) mmol/L Calcium (8.5-10.5) mg/dL Total Bilirubin (0.15-1.2) mg/dL AST (0-40) U/L ALT (0-41) U/L Alkaline Phosphata se (40-130) IU/L Total Protein (6.6-8.7) g/dL Albumin (3.5-5.2) g/dL Globulin (1.3-4.6) g/dL Lipase (13-60) U/L Urine Color (Yellow) Urine Appearance (CLEAR) Urine pH (5-7) Ur Specific Gravit y (1.005-1.030) Urine Protein (Negative) Urine Glucose (UA) (Normal) Urine Ketones (Negative) Urine Blood (Negative) Urine Nitrate (Negative) Urine Bilirubin (Negative) Urine Urobilinogen (Negative) mg/dL Ur Leukocyte Amelia ase (Negative) Urine RBC (0-2) /hpf Urine WBC (0-5) /hpf Ur Squamous Epith Cells (0-5) /hpf Amorphous Sediment Urine Bacteria (NONE) /hpf Imaging Data ^: Other Imaging: Radiologist's impression: [address] [id number] Scan ReportSigned Patient: Tomas Pinedadrea #: [id number]: 1980Acct#:[id number]/Sex: 40 / MADM Date: 05/26/21Loc: ERRoom/Bed:Attending Dr: Ordering Provider/Ordering MD: Shannen Duarte MD Date of Service: 05/26/21 Procedure(s): CT abdomen pelvis w con* [id number] Accession Number(s): [id number] Report Number: [id number] PROCEDURE INFORMATION: Exam: CT Abdomen And Pelvis With Contrast Exam date and time: 05/26/2021 5:31 PM Age: 40 years old Clinical indication: Abdominal pain; Additional info: B/l L abdominal pain, HX of ? aaa and ? celiac artery stenosis TECHNIQUE: Imaging protocol: Computed tomography of the abdomen and pelvis with contrast. Radiation optimization: All CT scans at this facility use at least one of these dose optimization techniques: automated exposure control; mA and/or kV adjustment per patient size (includes targeted exams where dose is matched to clinical indication); or iterative reconstruction. Contrast material: OMNI 300; Contrast volume: 95 ml; Contrast route: INTRAVENOUS (IV); COMPARISON: CT abdomen pelvis wo/w [id number] 05/17/2020 11:56 AM RADIATION DOSE METRICS: Total DLP (mGy-cm): 1633.87 FINDINGS: Mediastinal space: Wall thickening is observed in the distal esophagus. Liver: Normal. No mass. Gallbladder and bile ducts: Normal. No calcified stones. No ductal dilation. Pancreas: Normal. No ductal dilation. Spleen: Normal. No splenomegaly. Adrenal glands: Normal. No mass. Kidneys and ureters: Normal. No hydronephrosis. Stomach and bowel: Unremarkable. No obstruction. No mucosal thickening. Appendix: The appendix is normal. Intraperitoneal space: Unremarkable. No free air. No significant fluid collection. Vasculature: Atherosclerotic changes are seen in the abdominal aorta. No excision of the infrarenal abdominal aorta is also noted measuring up to 2.9 cm. Mild periaortic fat stranding is also detected. The celiac artery, SMA, VINNY and renal arteries are patent. Lymph nodes: Unremarkable. No enlarged lymph nodes. Urinary bladder: Mild urinary bladder wall thickening is noted. Reproductive: Unremarkable as visualized. Bones/joints: Unremarkable. No acute fracture. Soft tissues: Unremarkable. CT/CT abdomen pelvis w con* [id number] IMPRESSION: 1. Mild distal esophagitis. 2. Mild cystitis, correlate with urinalysis. 3. Atherosclerosis and possible mild aortitis. Radiation Dose CTDIVOL = (mGy): DLP = 1633.87 (mGy-cm) Dictated By:Cristino Sotelo MDSigned By:Cristino Sotelo MD Discharge Plan Discharge Patient Disposition: Left Against Medical Advice Prescriptions: No Action pantoprazole [Protonix] 20 mg tablet,delayed release (DR/EC) 40 mg PO .HS RF: 0 gabapentin 600 mg tablet 800 mg PO TID RF: 0 buspirone 10 mg tablet 10 mg PO TID Qty: 90 RF: 2 simvastatin 40 mg tablet 40 mg PO DAILY Qty: 90 RF: 3 metoprolol succinate [Toprol XL] 25 mg tablet extended release 24 hr 25 mg PO BID Qty: 60 RF: 3 clopidogrel [Plavix] 75 mg tablet 75 mg PO DAILY Qty: 90 RF: 0 baclofen 10 mg tablet 10 mg PO TID Qty: 14 RF: 0 Referrals: John Hayward NP [Primary Care Provider] - Coding Level of Care Code ED Medical Review Coordinator for Chg Tapan
[2021-05-26 17:41] LABS: Alanine Aminotransferase 33 U/L (0-41); Albumin Level 4.1 g/dL (3.5-5.2); Alkaline Phosphatase 101 IU/L (40-130); Anion Gap 13.2 (5-19); Aspartate Amino Transferase 22 U/L (0-40); Blood Urea Nitrogen 11 mg/dL (6-20); Calcium 8.8 mg/dL (8.5-10.5); Carbon Dioxide 22 mmol/L (22-29); Chloride 104 mmol/L (98-107); Creatinine Clr Calc Pharmacy 143.4897; Globulin 3.7 g/dL (1.3-4.6); Glomerular Filtration Rate 124.9 mL/min (90-130); Glucose 101 mg/dL (65-115); Lipase 8 U/L (13-60); Osmolality Calculated 280 mOsm/kg (285-295); Potassium 4.2 mmol/L (3.5-5.1); Sodium 135 mmol/L (136-145); Total Bilirubin 0.5 mg/dL (0.15-1.2); Total Protein 7.8 g/dL (6.6-8.7)
[2021-05-26] MEDS: sodium chloride 0.9% 1,000 ML 999 ML IV (17:41)
[2021-05-26] MEDS: famotidine 20 mg/2 mL INJ IVP (17:41)
[2021-05-26] MEDS: iohexol 300 mg/mL 100 mL Btl IV (17:48)
[2021-05-26 17:52] LABS: Bilirubin Urine Neg (Negative); Blood Urine Neg (Negative); Glucose Urine UA Norm (Normal); Ketones Urine Negative (Negative); Leukocyte Esterase Urine Negative (Negative); Nitrate Urine Negative (Negative); Protein Urine Neg (Negative); Specific Gravity, Urine 1.005 (1.005-1.030); Squamous Epithelial Cell Urine 0-4 /hpf (0-5); Urine Appearance Clear (CLEAR); Urine Color Yellow (Yellow); Urobilinogen Urine Neg (Negative); pH Urine 7 (5-7)
[2021-05-26 17:53] LABS: Add Urine Culture? No
[2021-05-26 19:24] LABS: INR 0.97 (0.8-1.2); Partial Thromboplastin Time 33.3 SECONDS (23.9-36.7)
[2021-05-26 19:28] LABS: Lactate (Lactic Acid level) 0.7 mmol/L (0.5-2.2)
[2021-05-26] MEDS: acetaminophen-codeine 300-30mg Tablet 1 TAB PO (19:37)
[2021-05-26 20:00] VITALS: BP 150/93; PULSE 80; RESP 18; O2SAT 98
--- NOTE | 2021-05-26 20:07 | PC.NURSE ---
Argelia went to patient room to give medication and patient states he wants to leave. I discussed with him that I understood he was tired of waiting and would ask the physician for more medication for him if he thought he needed it. Tomas told me that he was leaving Dr Duarte came to patient room and attempted service recovery. patient states hes leaving. Dr Duarte asked that I get an AMA form and talked with the patient about if his results were any concern once he talks with the radiologist that he would call him. patient did not respond to the discussion and says he wants the IV out or he is taking it out then signs the AMA form
== END 2021-05-26 20:10 | disposition left against medical advice (07) ==
PROVIDERS: Physician Assistant; Emergency Provider Emergency Medicine; PCP Nurse Practitioner Family
DX: R10.9 Unspecified abdominal pain (principal); Z53.21 Procedure and treatment not carried out due to patient leaving prior to being seen by health care provider; Z79.02 Long term (current) use of antithrombotics/antiplatelets; I25.10 Atherosclerotic heart disease of native coronary artery without angina pectoris; F17.210 Nicotine dependence, cigarettes, uncomplicated
CPT/HCPCS: 74177; 80053; 81001; 83605; 83690; 85025; 85610; 85730; 96361; 96374; 96375; 99284; J3490; J7030; Q9967

== ENCOUNTER 2022-08-30 14:24 | Inpatient (IN) | payer MEDICARE, SELFPAY ==
[2022-08-30] VITALS (14 sets, daily range): BP systolic 142–167; BP diastolic 67–102; PULSE 63–80; RESP 16–20; TEMP 36.7–37.1; O2SAT 92–97
--- NOTE | 2022-08-30 14:32 | ECG_ITS ---
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 Measurements Intervals [place] Rate: 82 P: 59 PA: 141 QRS: 68 QRSD: 101 T: 101 QT: 400 QTc: 468 Interpretive Statements SINUS RHYTHM POSSIBLE LEFT ATRIAL ENLARGEMENT [-0.1mV P-WAVE IN V1/V2] POSSIBLE LEFT VENTRICULAR HYPERTROPHY [VOLTAGE CRITERIA PLUS LAE OR QRS WIDENING] PROBABLE INFERIOR MYOCARDIAL INFARCTION , OF INDETERMINATE AGE [35 ms Q WAVE IN II/aVF] INTERPRETATION BASED ON A DEFAULT AGE OF 40 YEARS Compared to ECG 03/29/2017 06:14:19 No significant changes Electronically Signed On 08-30-2022 21:02:36 REPORTING PROCESS CONSULTANT by Mary Leong M.D. [id number]
--- NOTE | 2022-08-30 14:37 | XR_ITS ---
WS: [id number] Chest 2 views, 08/30/2022 Clinical Data: chest pain Comparison: Portable chest, 03/28/2017 Findings: No nodules, masses or effusions are seen. The heart is normal. The pulmonary vascularity is not increased. No pneumonia or pneumothorax is seen. The right hilum is minimally prominent which ca n be seen with minimal carlos eduardo reaction or a mild right hilar pneumonia. XR/XR chest 1V portable [id number] Impression: 1. Minimal right hilar prominence which could represent a previous infection or current infection. 2. Recommend repeat chest x-ray in 8-10 days.
[2022-08-30 14:57] LABS: Basophils % 0.7 %; Eosinophils # 0.1 10^3/uL (0.0-0.8); Eosinophils % 0.9 %; Hematocrit 38.5 % (42.0-52.0); Hemoglobin 11.9 g/dL (11.7-16.6); Lymphocytes # 1.2 10^3/uL (0.8-4.8); Lymphocytes % 20.6 %; Mean Corpuscular HGB Conc 30.9 g/dL (30.0-36.0); Mean Corpuscular Hemoglobin 28.9 pg (28.0-34.0); Mean Corpuscular Volume 93.4 fl (80-94); Mean Platelet Volume 11.3 fL (7.4-10.4); Monocytes # 0.3 10^3/uL (0.2-0.9); Monocytes % 4.8 %; Neutrophils # 4.04 10^3/uL (1.8-7.7); Neutrophils % 72.5 %; Nucleated Red Blood Cells % 0 %; Platelet Count 231 10^3/cmm (130-400); Red Blood Count 4.12 10^6/uL (4.1-5.3); Red Cell Distribution Width 16.6 % (12.1-15.1); White Blood Count 5.6 10^3/uL (4.0-10.0)
[2022-08-30 15:18] LABS: Troponin(5th) Baseline 13 ng/L (0-15)
[2022-08-30 15:21] LABS: Alanine Aminotransferase 17 U/L (0-41); Alkaline Phosphatase 73 U/L (40-130); Anion Gap 14.6 (5-19); Aspartate Amino Transferase 15 U/L (0-40); Blood Urea Nitrogen 7 mg/dL (6-20); Calcium 9.2 mg/dL (8.5-10.5); Carbon Dioxide 23 mmol/L (22-29); Chloride 103 mmol/L (98-107); Globulin 3.7 g/dL (1.3-4.6); Glucose 130 mg/dL (65-115); Osmolality Calculated 284 mOsm/kg (285-295); Potassium 3.6 mmol/L (3.5-5.1); Sodium 137 mmol/L (136-145); Total Bilirubin 0.5 mg/dL (0.15-1.2); Total Protein 7.7 g/dL (6.6-8.7)
--- NOTE | 2022-08-30 16:08 | PC.NURSE ---
PER PT FAMILY PT HAS WALKED OUTSIDE TO GET SOMETHING FROM HIS TRUCK WILL ASSESS HIM WHEN HE RETURNS.
--- NOTE | 2022-08-30 16:46 | W.ED.CHESTPA ---
HPI - Chest Pain General: Chief Complaint: Chest Pain Stated Complaint: Chest Pain Time Seen by Provider: 08/30/22 16:46 History of Present Illness: Mr. Pineda is a 41-year-old gentleman with history of CAD, TX with PCI, hypertension, tobaccoism, arterial disease presenting to the emergency department due to worsening chest pain. He notes worsening more frequent chest pain over the past few weeks and this morning woke up with pain that is substernal and radiating to his arms. He has associated shortness of breath. Worse with exertion. No other typical cardiac features. Intensity symptoms is moderate to severe. He did have some relief with nitroglycerin. No other specific changes in health, exacerbating, or alleviating factors identified. Onset (ago): week(s) Timing of current episode: still present Prior episodes: Yes Pain location: substernal Pain radiation: right arm and left arm Severity: moderate Quality: tightness and heaviness Relieving factors: nothing Exacerbating factors: exertion Associated symptoms: Reports dyspnea Review of Systems General: Reports: 10 or more systems reviewed and unremarkable except in HPI and below Resp: Reports: dyspnea PFSH ED PFSH: Medical History Abdominal aortic aneurysm Abnormal nuclear stress test Angina pectoris, unstable Celiac artery stenosis Coronary artery disease Dyslipidemia Erectile dysfunction Generalized anxiety disorder High blood pressure Hypertension Major depressive disorder, recurrent, moderate Nephrolithiasis Nicotine dependence, unspecified, uncomplicated Surgical History H/O heart artery stent Family History Other CAD (coronary artery disease) Denies family history of Diabetes Hyperlipidemia Hypertension Social History Smoking and tobacco status: current every day smoker cigarettes Packs smoked per day: 1 Years cigarettes smoked: 20 Quit status (tobacco): has tried quititng Number of times tried to quit tobacco: 2 Second hand smoke exposure: Yes Smoking risk assessment/counseling performed?: No Alcohol intake: former Physical Exam Const: COMMON NORMALS: alert GENERAL APPEARANCE: cooperative and well developed HENMT: COMMON NORMALS: normocephalic and atraumatic HEAD & SCALP: normocephalic and atraumatic Eye: COMMON NORMALS: conjunctivae normal CONJUNCTIVA: Yes conjunctivae normal SCLERA: sclerae normal Neck/C-Spine: COMMON NORMALS: supple GENERAL: Yes trachea midline Resp: COMMON NORMALS: clear to auscultation bilaterally EFFORT & INSPECTION: Yes able to speak in complete sentences AUSCULTATION: clear to auscultation bilaterally Cardio: COMMON NORMALS: regular rate and regular rhythm RATE: regular rate RHYTHM: regular rhythm GI: COMMON NORMALS: Soft to palpation PALPATION: Yes Soft to palpation and No Tenderness to palpation present (GI) Extremity: GENERAL: Yes normal exam except as noted and No edema Neuro: COMMON NORMALS: moves all extremities SENSORIUM/ORIENTATION: Yes alert and No Orientation impaired Psych: COMMON NORMALS: mental status grossly normal and Normal thought process present THOUGHT PROCESS: Normal thought process present Course Vital Signs: Vital signs: Vital Signs Temperature 98.1 F 09/03/22 08:31 Pulse Rate 98 09/03/22 08:31 Respiratory Rate 15 09/03/22 08:31 Blood Pressure 152/98 09/03/22 08:31 Pulse Oximetry 97 09/03/22 08:31 Oxygen Delivery Me thod 09/03/22 08:31 Oxygen Flow Rate 2 08/31/22 01:35 MDM - Chest Pain Medical Decision Making 41-year-old gentleman with significant cardiac history presenting due to chest pain which has become now constant and increasing frequency. Twelve-lead EKG without evidence of STEMI. No leukocytosis, normal hemoglobin. Metabolic panel without significant derangement. 2-hour delta troponin is negative. Chest x-ray with no lobar consolidation or pneumothorax. Patient presents with concerning story for unstable angina and requires further inpatient evaluation. Given history of TX in his 30s he likely feels outside of restratification tools. The results of ED evaluation were discussed with the patient including plan for admission due to requirement for level of care not available if discharged to prevent significant worsening/deterioration. Patient agreeable with plan. Discussed with hospitalist service who was agreeable to admit patient. Medical Records I reviewed the patient's medical records. Lab Data I reviewed the patient's lab results. : 09/02/22 01:42 09/03/22 10:10 Radiology Impressions Chest X-Ray 08/30/22 14:37 Impression: 1. Minimal right hilar prominence which could represent a previous infection or current infection. 2. Recommend repeat chest x-ray in 8-10 days. Laboratory Results WBC 5.3 10^3/uL (4.0-10.0) 09/01/22 04:41 RBC 3.90 10^6/uL (4.1-5.3) L 09/01/22 04:41 Hgb 11.1 g/dL (11.7-16.6) L 09/01/22 04:41 Hct 36.3 % (42.0-52.0) L 09/01/22 04:41 MCV 93.1 fl (80-94) 09/01/22 04:41 MCH 28.5 pg (28.0-34.0) 09/01/22 04:41 MCHC 30.6 g/dL (30.0-36.0) 09/01/22 04:41 RDW 16.6 % (12.1-15.1) H 09/01/22 04:41 Plt Count 214 10^3/cmm (130-400) 09/01/22 04:41 MPV 11.6 fL (7.4-10.4) H 09/01/22 04:41 Neut % (Auto) 66.8 % 09/01/22 04:41 Lymph % (Auto) 24.6 % 09/01/22 04:41 [place] % (Auto) 6.3 % 09/01/22 04:41 Eos % (Auto) 1.3 % 09/01/22 04:41 Baso % (Auto) 0.6 % 09/01/22 04:41 Neut # (Auto) 3.51 10^3/uL (1.8-7.7) 09/01/22 04:41 Lymph # (Auto) 1.3 10^3/uL (0.8-4.8) 09/01/22 04:41 [place] # (Auto) 0.3 10^3/uL (0.2-0.9) 09/01/22 04:41 Eos # (Auto) 0.1 10^3/uL (0.0-0.8) 09/01/22 04:41 Baso # (Auto) 0.0 10^3/uL (0.0-0.1) 09/01/22 04:41 Nucleated RBC % (auto) 0 % 09/01/22 04:41 Nucleated RBCs # 0.0 /100WBC 09/01/22 04:41 D-Dimer 0.70 ug/mIFEU (0-0.59) H 08/30/22 14:37 Sodium 139 mmol/L (136-145) 09/01/22 04:41 Potassium 3.1 mmol/L (3.5-5.1) L 09/01/22 04:41 Chloride 105 mmol/L (98-107) 09/01/22 04:41 Carbon Dioxide 23 mmol/L (22-29) 09/01/22 04:41 Anion Gap 14.1 (5-19) 09/01/22 04:41 BUN 10 mg/dL (6-20) 09/01/22 04:41 Creatinine 0.8 mg/dL (0.7-1.2) 09/01/22 04:41 GFR Calculation 106.5 mL/min (90-130) 09/01/22 04:41 Glucose 116 mg/dL (65-115) H 09/01/22 04:41 Calculated Osmolality 288 mOsm/kg (285-295) 09/01/22 04:41 Calcium 9.1 mg/dL (8.5-10.5) 09/01/22 04:41 Total Bilirubin 0.5 mg/dL (0.15-1.2) 08/30/22 14:45 AST 15 U/L (0-40) 08/30/22 14:45 ALT 17 U/L (0-41) 08/30/22 14:45 Alkaline Phosphatase 73 U/L (40-130) 08/30/22 14:45 Troponin T Baseline 13 ng/L (0-15) 08/30/22 14:45 Troponin T 120 Minute 15.52 ng/L (0-15) H 08/30/22 17:00 Delta Troponin T 2.52 ABS# (0-10) 08/30/22 17:00 Troponin T Hi Sens 6Hr 14.78 ng/L (0-15) 08/30/22 20:15 Troponin T Hi Sens 6Hr Delta 1.78 ng/L (0-12) 08/30/22 20:15 Total Protein 7.7 g/dL (6.6-8.7) 08/30/22 14:45 Albumin 4.0 g/dL (3.5-5.2) 08/30/22 14:45 Globulin 3.7 g/dL (1.3-4.6) 08/30/22 14:45 Discharge Plan Discharge Patient Disposition: Placed in Observation Admit Provider: Pasha Coelho Clinical Impression: Angina pectoris, unstable Coding Level of Care Code ED 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
[2022-08-30 17:38] LABS: Troponin 5 2HR 15.52 ng/L (0-15)
[2022-08-30 17:40] LABS: Troponin 5 2HR Delta 2.52 ABS# (0-10)
[2022-08-30] MEDS: morphine 4 mg/mL SDV 1 mL IVP ×2 (17:45→19:15)
[2022-08-30] MEDS: aspirin 81 mg Chew Tablet 324 MG PO (17:45)
[2022-08-30] MEDS: nitroglycerin 1 gm/inch oint Pkt 0.5 INCH TOPICAL (19:26)
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
--- NOTE | 2022-08-30 20:37 | ECG_ITS ---
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 [id number]
--- NOTE | 2022-08-30 20:38 | USCV_ITS ---
Edwin Tomas Age: 41 Gender: M : 1980 Exam Date: 08/30/2022 21:03 Ordering Phys: Pasha Coelho MD Technologist: FRANCIA Exam Location: [facility] [place] Indication: chest discomfort, hx CAD, hx PAD, prior cardiac stenting 2014 BP: 149 / 98 HR: 67 Rhythm: Sinus Technical Quality: Adequate MEASUREMENTS (Male / Female) Normal Values 2D ECHO LV Diastolic Diameter PLAX 5.2 cm 4.2 - 5.9 / 3.9 - 5.3 cm LV Systolic Diameter PLAX 4.5 cm IVS Diastolic Thickness 1.3 cm 0.6 - 1.0 / 0.6 - 0.9 cm IVS Systolic Thickness 1.3 cm LVPW Diastolic Thickness 0.8 cm 0.6 - 1.0 / 0.6 - 0.9 cm LVPW Systolic Thickness 0.9 cm LVOT Diameter 2.1 cm LV Ejection Fraction 2D Teich 29.6 % LV Ejection Fraction MOD 2C 63.4 % LV Ejection Fraction 2C AL 64.0 % LA Diameter 4.5 cm LA Width 4.0 cm LA Height 6.3 cm RA Width 3.9 cm RA Height 5.5 cm Aorta at Sinotubular Diameter 2.9 cm IVC Diameter 1.8 cm M-MODE Aortic Annulus Diameter 3.1 cm LA Ao Ratio MM 1.6 MV E Point Septal Separation 1.3 cm DOPPLER AV Peak Velocity 136.0 cm/s LVOT Peak Velocity 95.0 cm/s AV Area Cont Eq vti 2.9 cm squared AV Area Cont Eq pk 2.5 cm squared MV Area PHT 4.3 cm squared Mitral E to A Ratio 2.3 MV E' Velocity 77.0 cm/s Mitral E to MV E' Ratio 16.6 Mitral E to LV E' Lateral Ratio 13.4 Mitral E to LV E' Septal Ratio 22.0 TR Peak Velocity 317.5 cm/s TR Peak Gradient 40.3 mmHg TV Peak E Velocity 47.0 cm/s Right Atrial Pressure 10.0 mmHg Pulmonary Artery Systolic Pressu 50.3 mmHg PV Peak Velocity 108.0 cm/s RV Acceleration Time 0.1 s RV Ejection Time 0.3 s RV AcT/ET 0.4 FINDINGS Left Ventricle Normal left ventricular size, systolic function and wall thickness, with no regional wall motion abnormalities. Left ventricular ejection fraction is estimated at 60 %. Grade III diastolic dysfunction (restrictive filling pattern), severely elevated filling pressures. Right Ventricle Normal right ventricular size and systolic function. Right ventricular systolic pressure 43 mmHg. Right Atrium Normal right atrial size. Right atrial pressure estimated at 3 mm Hg. Left Atrium Mildly increased left atrial size. Mitral Valve Structurally normal mitral valve. No mitral valve stenosis. Mild to moderate mitral valve regurgitation. Aortic Valve Structurally normal trileaflet aortic valve. No aortic valve stenosis. Trace aortic valve regurgitation. Tricuspid Valve Structurally normal tricuspid valve. No tricuspid valve stenosis. Mild tricuspid valve regurgitation. Pulmonic Valve Structurally normal pulmonic valve. No pulmonary valve stenosis. No significant pulmonary valve regurgitation. Pericardium No pericardial effusion. Aorta Normal size aortic root and proximal ascending aorta. IVC Normal IVC dimension with >50% respiratory change of the inferior vena cava. CONCLUSIONS 1. Normal left ventricular size, systolic function and wall thickness, with no regional wall motion abnormalities. Left ventricular ejection fraction is estimated at 60 %. Grade III diastolic dysfunction (restrictive filling pattern), severely elevated filling pressures. 2. Normal right ventricular size and systolic function. 3. Mild to moderate mitral valve regurgitation. 4. Mild pulmonary hypertension with pulmonary pressure estimated at 43 mmHg. 5. When compared to previous study dated 03/28/2017, there may not have been any significant change. Toyin Horvath MD (Electronically Signed) Final Date: 31 August 2022 08:46 S
[2022-08-30 20:44] LABS: Troponin 5 6HR 14.78 ng/L (0-15)
[2022-08-30] MEDS: HYDROcodone-acetaminophen 10-325 mg Tablet 1 TAB PO (21:50)
[2022-08-30] MEDS: atorvastatin 40 mg Tablet PO (21:50)
[2022-08-30] MEDS: metoprolol tartrate 25 mg Tablet PO (21:51)
[2022-08-30] MEDS: pantoprazole DR 40 mg Tablet PO (21:51)
[2022-08-30] MEDS: trazodone 100 mg Tablet PO (21:51)
[2022-08-30] MEDS: enoxaparin 80 mg/0.8 mL Syringe SUBCUT (21:52)
[2022-08-30 22:25] LABS: Troponin 5 6HR Delta 1.78 ng/L (0-12)
[2022-08-30] MEDS: acetaminophen 325 mg Tablet 650 MG PO (23:06)
[2022-08-31] VITALS (9 sets, daily range): BP systolic 129–150; BP diastolic 72–92; PULSE 66–80; RESP 14–18; TEMP 36.7–37.1; O2SAT 88–96
[2022-08-31] MEDS: HYDROcodone-acetaminophen 10-325 mg Tablet 1 TAB PO ×6 (02:21→21:26)
[2022-08-31 05:48] LABS: Basophils # 0.1 10^3/uL (0.0-0.1); Basophils % 1.1 %; Eosinophils # 0.1 10^3/uL (0.0-0.8); Eosinophils % 1.2 %; Hematocrit 37.1 % (42.0-52.0); Hemoglobin 11.2 g/dL (11.7-16.6); Lymphocytes # 1.5 10^3/uL (0.8-4.8); Lymphocytes % 26.7 %; Mean Corpuscular HGB Conc 30.2 g/dL (30.0-36.0); Mean Corpuscular Hemoglobin 28.4 pg (28.0-34.0); Mean Corpuscular Volume 94.2 fl (80-94); Mean Platelet Volume 11.5 fL (7.4-10.4); Monocytes # 0.4 10^3/uL (0.2-0.9); Monocytes % 6.5 %; Neutrophils # 3.65 10^3/uL (1.8-7.7); Neutrophils % 64.1 %; Nucleated Red Blood Cells % 0 %; Platelet Count 218 10^3/cmm (130-400); Red Blood Count 3.94 10^6/uL (4.1-5.3); Red Cell Distribution Width 16.6 % (12.1-15.1); White Blood Count 5.7 10^3/uL (4.0-10.0)
[2022-08-31 06:19] LABS: Anion Gap 16.6 (5-19); Blood Urea Nitrogen 8 mg/dL (6-20); Calcium 9.1 mg/dL (8.5-10.5); Carbon Dioxide 23 mmol/L (22-29); Chloride 106 mmol/L (98-107); Glomerular Filtration Rate 106.5 mL/min (90-130); Glucose 80 mg/dL (65-115); Osmolality Calculated 291 mOsm/kg (285-295); Potassium 3.6 mmol/L (3.5-5.1); Sodium 142 mmol/L (136-145)
[2022-08-31] MEDS: clopidogrel 75 mg Tablet PO (08:57)
[2022-08-31] MEDS: enoxaparin 80 mg/0.8 mL Syringe SUBCUT ×2 (08:57→20:40)
[2022-08-31] MEDS: aspirin 325 mg Tablet PO (08:57)
[2022-08-31] MEDS: metoprolol tartrate 25 mg Tablet PO ×2 (08:57→20:40)
[2022-08-31] MEDS: isosorbide mononitrate ER 30 mg Tablet PO (10:00)
[2022-08-31] MEDS: acetaminophen 325 mg Tablet 650 MG PO (10:00)
--- NOTE | 2022-08-31 16:24 | PC.NURSE ---
physician orders ONE time dose hydrocodone 10-325
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
[2022-08-31] MEDS: atorvastatin 40 mg Tablet PO (20:39)
[2022-08-31] MEDS: pantoprazole DR 40 mg Tablet PO (20:40)
[2022-08-31] MEDS: trazodone 100 mg Tablet PO (21:26)
[2022-09-01] VITALS (9 sets, daily range): BP systolic 122–163; BP diastolic 58–99; PULSE 64–83; RESP 17–20; TEMP 36.2–36.8; O2SAT 93–97
--- NOTE | 2022-09-01 | ECG_ITS ---
[facility] Test Date: 2022-09-01 Pat Name: Tomas Pineda Department: Room: 105 Gender: Male Hitch Technician: Kari Jeong : 1980 Requested By: Ryan Curry Order Number: [id number] Nagi MD: Mary Leong M.D. Interpretive Statements NAME OF STUDY: LEXISCAN SESTAMIBI STRESS TEST INDICATION: Chest Pain, PROCEDURE: At the baseline, the EKG revealed normal sinus rhythm with a heart rate of 77 bpm. Possible old inferior wall KS. Nonspecific T wave changes. The baseline heart was 77 bpm with a blood pressue of 155/79 mm of Hg Lexiscan was infused over a period of 20 seconds. A total of 0.4 milligrams of Lexiscan was infused. The stress phase was continued for a total of 5 minutes. Heart rate at the end of the stress phase was 83 bpm with a blood pressure 162/89 mm of Hg. The EKG at the peak infusion revealed no significant changes. Sestamibi was injected 20 seconds after the Lexiscan infusion. Heart rate at the end of the recovery phase was 80 bpm with a blood pressure of 162/88 mm of Hg. CONCLUSION: 1. No significant EKG changes with the LexiScan infusion 2. No LexiScan induced chest pain or cardiac arrhythmia 3. Normal blood pressure and heart rate response 4. Sestamibi/sestamibi perfusion scan pending; see separate report. Electronically Signed On 09-02-2022 9:10:58 ELECTRICAL ASSEMBLIES SUPERVISOR by Mary Leong M.D. [email or web address]
[2022-09-01] MEDS: HYDROcodone-acetaminophen 10-325 mg Tablet 1 TAB PO ×5 (04:48→20:14)
[2022-09-01 05:23] LABS: Basophils % 0.6 %; Eosinophils # 0.1 10^3/uL (0.0-0.8); Eosinophils % 1.3 %; Hematocrit 36.3 % (42.0-52.0); Hemoglobin 11.1 g/dL (11.7-16.6); Lymphocytes # 1.3 10^3/uL (0.8-4.8); Lymphocytes % 24.6 %; Mean Corpuscular HGB Conc 30.6 g/dL (30.0-36.0); Mean Corpuscular Hemoglobin 28.5 pg (28.0-34.0); Mean Corpuscular Volume 93.1 fl (80-94); Mean Platelet Volume 11.6 fL (7.4-10.4); Monocytes # 0.3 10^3/uL (0.2-0.9); Monocytes % 6.3 %; Neutrophils # 3.51 10^3/uL (1.8-7.7); Neutrophils % 66.8 %; Nucleated Red Blood Cells % 0 %; Platelet Count 214 10^3/cmm (130-400); Red Cell Distribution Width 16.6 % (12.1-15.1); White Blood Count 5.3 10^3/uL (4.0-10.0)
[2022-09-01 05:43] LABS: Anion Gap 14.1 (5-19); Blood Urea Nitrogen 10 mg/dL (6-20); Calcium 9.1 mg/dL (8.5-10.5); Carbon Dioxide 23 mmol/L (22-29); Chloride 105 mmol/L (98-107); Glomerular Filtration Rate 106.5 mL/min (90-130); Glucose 116 mg/dL (65-115); Osmolality Calculated 288 mOsm/kg (285-295); Potassium 3.1 mmol/L (3.5-5.1); Sodium 139 mmol/L (136-145)
[2022-09-01] MEDS: regadenoson 0.4 Mg/5 ml Syringe IVP (07:30)
[2022-09-01] MEDS: aspirin 325 mg Tablet PO (09:04)
[2022-09-01] MEDS: clopidogrel 75 mg Tablet PO (09:04)
[2022-09-01] MEDS: metoprolol tartrate 25 mg Tablet PO ×2 (09:10→20:15)
[2022-09-01] MEDS: potassium chloride ER 20 mEq Tablet 40 MEQ PO (10:43)
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
--- NOTE | 2022-09-01 13:27 | USCV_ITS ---
Tomas Pineda Age: 41 Gender: M : 1980 Exam Date: 09/01/2022 14:30 Ordering Phys: Ryan Curry MD Technologist: SHIMA Exam Location: [facility] [place] Indication: Aortic Velocity @ SMA (cm/s) 49.6 RIGHT KIDNEY LEFT KIDNEY Velocity (cm/s) Velocity (cm/s) Sys/Yadav Sys/Yadav Resistive Index Resistive Index 40.8 / 7.8 0.81 Proximal Renal Artery 64.9 / 7.1 0.89 77.7 / 9.3 0.88 Mid Renal Artery 73.3 / 9.6 0.87 61.1 / 12.4 0.80 Distal Renal Artery 73.5 / 19.0 0.74 119.2 / 44.4 0.63 Hilar 52.9 / 19.0 0.64 43.6 / 18.5 0.58 Upper Pole 24.2 / 14.0 0.42 17.4 / 7.5 0.57 Mid Pole 19.5 / 8.1 0.59 50.7 / 22.1 0.56 Lower Pole 34.1 / 18.1 0.47 1.60 Renal Aortic Ratio 1.48 Accleration Index (cm/sec2) 1229.0 Hilar 198.00 0 291.00 Upper Pole 136.00 127.00 Mid Pole 92.00 668.00 Lower Pole 324.00 FINDINGS No evidence of abdominal aortic aneurysm. There is no evidence of hemodynamically significant right renal artery stenosis. There is no evidence of hemodynamically significant left renal artery stenosis. CONCLUSIONS There is no sonographic evidence of hemodynamically significant renal artery stenosis bilaterally. Dr. Rochelle Luevano DO (Electronically Signed) Final Date: 01 September 2022 16:14 S
--- NOTE | 2022-09-01 13:42 | PM.CONSULT ---
Providers/Reason For Consult Consulting Physician/Specialty*: KRISTINE Leong MD/cardiology Reason for Consult*: Patient with chest pain and abnormal Myocardial perfusion imaging Requesting Physician: Dr. Curry Attending Physician: Ryan Curry MD Primary Care Provider: John Hayward NP History of Present Illness History of Present Illness Tomas Pineda is a 41 year old male with a history of atherosclerotic heart diseas, high blood pressure, dyslipidemia and heavy smoking abuse, he is presenting with increasing episodes of chest pain. Myocardial infarction was ruled out with serial enzymes and EKGs. He had a Myocardial perfusion imaging today. The test was found to be abnormal. Cardiology consult is requested for further cardiac evaluation recommendations. This patient is known to have atherosclerotic heart diseas. He had a non-ST elevation myocardial infarction in March 2017. He was found to have a high-grade lesion in the mid left artery descending artery for which he underwent primary stenting by Dr. Hamlin. 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 According the patient, he been doing okay with no recurrence of chest pain up until 3 months ago. He has been having episodes of chest pains, mostly with exertion intermittently for the last 3 months. The episodes are somewhat erratic. He may have the exertional chest pain daily for a week or so and then may not have it for several days. Usually these episodes happens once a day or so on the day of the hospital admission, he had a 3 episodes of chest pain on the same day. He describes the pain as a pressure-like pain in the mid substernal region, radiating to the right side of the neck and also to the right elbow. The first episode of pain happened around 5:00 which woke him up from sleep. Intensity of the pain was moderate. He took 1 sublingual nitro which relieved the pain. He went back to sleep and then woke up around 8:00. He was having a similar episode of pain at this time as well. So he took the second dose of sublingual nitro at that point. He felt okay up until early afternoon when he had the third episode of pain associated with some pounding in the head. The pain was radiating to the right axilla and to the back. Because of these recurrent episodes of chest pain with increasing frequency and new radiation of pain to the axilla, he decided to come to the hospital. He has not had any significant recurrence of chest pain since the hospital admission. Is known to have high blood pressure dyslipidemia. Also is known to have renal artery stenosis, mesenteric artery stenosis, celiac compression syndrome, infrarenal aortic aneurysm. He was seen by the vascular surgeon in [place] for these complaints. He had some intervention but the details are not available. She was told in the past that the extensive vascular disease especially of the mesenteric arteries, could be related to methamphetamine abuse. Apparently the patient denies the use of methamphetamine in the past. He used to smoke 2 to 3 pack a day for more than 20 years. Lately he is trying to cut down. No alcohol abuse or any other substance abuse. His mother had a myocardial infarction in his 60s. He does not know much about his biological father. No other relevant family history. Review of Systems Narrative: CONSTITUTIONAL: No fever or chills. Has been having some amount of fatigue and shortness of breath with exertion. EYES: No blurring of vision or other visual disturbances lately. ENT: No hoarseness of voice, auditory disturbances or sore throat. CARDIOVASCULAR: As mentioned above. RESPIRATORY: No significant cough. GASTROINTESTINAL: History of mesenteric artery stenosis GENITOURINARY: History of renal artery stenosis as mentioned above INTEGUMENTARY: No skin rashes or history of skin cancer. NEURO: No transient ischemic attacks or amaurosis. PSYCHIATRIC: No history of psychosis or major depression. HEMATOLOGIC: No bleeding disorders or significant anemia. ENDOCRINE: No history of polyuria or polydipsia. MUSCULOSKELETAL: No recent joint pain or swelling. ALLERGY/IMMUNOLOGY: As mentioned above. Medications/Allergies Home Medications Medication Instructions Recorded Confirmed Last Taken Type pantoprazole 20 mg tablet,delayed 40 mg PO BEDTIME 06/08/20 08/30/22 08/29/22 History release (Protonix) simvastatin 40 mg tablet 40 mg PO DAILY #90 tabs 09/01/20 08/30/22 08/29/22 Rx metoprolol succinate 25 mg 25 mg PO BID #60 tabs 03/10/21 08/30/22 08/30/22 Rx tablet,extended release 24 hr (Toprol XL) clopidogrel 75 mg tablet (Plavix) 75 mg PO DAILY #7 tabs 08/20/21 08/30/22 08/29/22 Rx buspirone 10 mg tablet 10 mg PO QID PRN Anxiety 08/30/22 08/30/22 08/30/22 History fenofibrate 54 mg tablet 54 mg PO DAILY 08/30/22 08/30/22 08/29/22 History hydrocodone 10 mg-acetaminophen 1 tab PO Q4H PRN Pain 08/30/22 08/30/22 08/30/22 History 325 mg tablet nitroglycerin 0.4 mg sublingual 0.4 mg sublingual Q5MIN PRN Chest 08/30/22 08/30/22 08/30/22 History tablet Pain 2 tabs testosterone cypionate 200 mg/mL 200 mg IM Q7D 08/30/22 08/30/22 Unknown History intramuscular oil trazodone 100 mg tablet 100 mg PO BEDTIME 08/30/22 08/30/22 08/29/22 History Allergies Allergy/AdvReac Type Severity Reaction Status Date / Time naproxen AdvReac Intermediate Makes sick Verified 04/26/22 13:36 to stomach Current Medications Generic Name Dose Route Start Last Admin Trade Name Freq PRN Reason Stop Dose Admin Acetaminophen 650 mg 08/30/22 20:38 08/31/22 10:00 Acetaminophen 325 Mg Tablet PO 650 mg Q6H PRN Administration Mild/Mod Pain Or Temp >/= 101 Hydrocodone Bitart/Acetaminophen 1 tab 08/30/22 20:38 09/01/22 12:17 Hydrocodone-Acetaminophen 10-325 Mg Tablet PO 1 tab Q4H PRN Administration Pain Aspirin 325 mg 08/31/22 09:00 09/01/22 09:04 Aspirin 325 Mg Tablet PO 325 mg DAILY WAYLON Administration Atorvastatin Calcium 40 mg 08/30/22 21:00 08/31/22 20:39 Atorvastatin 40 Mg Tablet PO 40 mg BEDTIME WAYLON Administration Clopidogrel Bisulfate 75 mg 08/31/22 09:00 09/01/22 09:04 Clopidogrel 75 Mg Tablet PO 75 mg DAILY WAYLON Administration Enoxaparin Sodium 80 mg 08/30/22 20:00 09/01/22 09:06 Enoxaparin 80 Mg/0.8 Ml Syringe SUBCUT Not Given Q12H [facility] Isosorbide Mononitrate 30 mg 08/31/22 09:30 09/01/22 09:07 Isosorbide Mononitrate Er 30 Mg Tablet PO Not Given DAILY [facility] Metoprolol Tartrate 25 mg 08/30/22 21:00 09/01/22 09:10 Metoprolol Tartrate 25 Mg Tablet PO 25 mg BID@0900,2100 WAYLON Administration Nicotine 1 patch 08/31/22 09:00 09/01/22 09:06 Nicotine 14 Mg Patch TRANSDERMA Not Given DAILY WAYLON Non-Formulary Medication 54 mg 08/31/22 09:00 09/01/22 09:06 Fenofibrate PO Not Given DAILY WAYLON Pantoprazole Sodium 40 mg 08/30/22 21:00 08/31/22 20:[address] 40 Mg Tablet PO 40 mg BEDTIME WAYLON Administration Trazodone HCl 100 mg 08/30/22 21:00 08/31/22 21:26 Trazodone 100 Mg Tablet PO 100 mg BEDTIME WAYLON Administration PFSH Acute PFSH: Medical History Abdominal aortic aneurysm Coronary artery disease Erectile dysfunction Generalized anxiety disorder High blood pressure Major depressive disorder, recurrent, moderate Nephrolithiasis Nicotine dependence, unspecified, uncomplicated Surgical History H/O heart artery stent Family History Other CAD (coronary artery disease) Denies family history of Diabetes Hyperlipidemia Hypertension Social History Smoking and tobacco status: current every day smoker cigarettes Packs smoked per day: 1 Years cigarettes smoked: 20 Quit status (tobacco): has tried quititng Number of times tried to quit tobacco: 2 Second hand smoke exposure: Yes Smoking risk assessment/counseling performed?: No Alcohol intake: former Vitals/I&O/Wt Last Vital Signs Temp 98.0 F 09/01/22 12:00 Pulse 83 09/01/22 07:52 Resp 20 H 09/01/22 12:00 BP 154/99 09/01/22 12:00 Pulse Ox 95 09/01/22 04:00 O2 Del Method 09/01/22 04:00 O2 Flow Rate 2 08/31/22 01:35 08/31/22 09/01/22 09/01/22 22:59 06:59 14:59 Intake Total 240 / 720 Balance 240 / 720 Weight last 48 hrs Weight 185 lb Physical Exam Narrative: GENERAL: The patient is alert and oriented times three. Not in any acute distress. HEENT: No significant pallor, icterus or lymphadenopathy.Oral cavity: There are no mucous membrane lesions. NECK: Trachea appears to be central. No masses noted. No JVD or thyromegaly appreciated. RESPIRATORY: Chest is symmetrical. No intercostals muscle retraction or any accessory muscle activation. There is no chest wall tenderness. Breath sounds are heard bilaterally. No rales or rhonchi heard. No evidence of any consolidation. BREASTS: Deferred. HEART: The heart sounds are normal. No S3 or S4. No significant murmurs. No pericardial rub ABDOMEN: No vessel pulsations or distention. No tenderness. No organomegaly appreciated. Bowel sounds are normally heard. : Deferred. RECTAL: Deferred. LYMPHATIC: No lymphadenopathy noted in the neck. EXTREMITIES: Pulses are palpable but weak bilaterally. MUSCULOSKELETAL: No acute joint deformities or swelling SKIN: There are no significant rashes or ecchymosis NEUROPSYCHIATRIC: The patient is alert and oriented x3. Appears to be in a good mood. No tremors or rigidity noted. Data : 09/01/22 04:41 09/01/22 04:41 Other Labs: Laboratory Last Values WBC 5.3 10^3/uL (4.0-10.0) 09/01/22 04:41 RBC 3.90 10^6/uL (4.1-5.3) L 09/01/22 04:41 Hgb 11.1 g/dL (11.7-16.6) L 09/01/22 04:41 Hct 36.3 % (42.0-52.0) L 09/01/22 04:41 MCV 93.1 fl (80-94) 09/01/22 04:41 MCH 28.5 pg (28.0-34.0) 09/01/22 04:41 MCHC 30.6 g/dL (30.0-36.0) 09/01/22 04:41 RDW 16.6 % (12.1-15.1) H 09/01/22 04:41 Plt Count 214 10^3/cmm (130-400) 09/01/22 04:41 MPV 11.6 fL (7.4-10.4) H 09/01/22 04:41 Neut % (Auto) 66.8 % 09/01/22 04:41 Lymph % (Auto) 24.6 % 09/01/22 04:41 [place] % (Auto) 6.3 % 09/01/22 04:41 Eos % (Auto) 1.3 % 09/01/22 04:41 Baso % (Auto) 0.6 % 09/01/22 04:41 Neut # (Auto) 3.51 10^3/uL (1.8-7.7) 09/01/22 04:41 Lymph # (Auto) 1.3 10^3/uL (0.8-4.8) 09/01/22 04:41 [place] # (Auto) 0.3 10^3/uL (0.2-0.9) 09/01/22 04:41 Eos # (Auto) 0.1 10^3/uL (0.0-0.8) 09/01/22 04:41 Baso # (Auto) 0.0 10^3/uL (0.0-0.1) 09/01/22 04:41 Nucleated RBC % (auto) 0 % 09/01/22 04:41 Nucleated RBCs # 0.0 /100WBC 09/01/22 04:41 D-Dimer 0.70 ug/mIFEU (0-0.59) H 08/30/22 14:37 Sodium 139 mmol/L (136-145) 09/01/22 04:41 Potassium 3.1 mmol/L (3.5-5.1) L 09/01/22 04:41 Chloride 105 mmol/L (98-107) 09/01/22 04:41 Carbon Dioxide 23 mmol/L (22-29) 09/01/22 04:41 Anion Gap 14.1 (5-19) 09/01/22 04:41 BUN 10 mg/dL (6-20) 09/01/22 04:41 Creatinine 0.8 mg/dL (0.7-1.2) 09/01/22 04:41 GFR Calculation 106.5 mL/min (90-130) 09/01/22 04:41 Glucose 116 mg/dL (65-115) H 09/01/22 04:41 Calculated Osmolality 288 mOsm/kg (285-295) 09/01/22 04:41 Calcium 9.1 mg/dL (8.5-10.5) 09/01/22 04:41 Total Bilirubin 0.5 mg/dL (0.15-1.2) 08/30/22 14:45 AST 15 U/L (0-40) 08/30/22 14:45 ALT 17 U/L (0-41) 08/30/22 14:45 Alkaline Phosphatase 73 U/L (40-130) 08/30/22 14:45 Troponin T Baseline 13 ng/L (0-15) 08/30/22 14:45 Troponin T 120 Minute 15.52 ng/L (0-15) H 08/30/22 17:00 Delta Troponin T 2.52 ABS# (0-10) 08/30/22 17:00 Troponin T Hi Sens 6Hr 14.78 ng/L (0-15) 08/30/22 20:15 Troponin T Hi Sens 6Hr Delta 1.78 ng/L (0-12) 08/30/22 20:15 Total Protein 7.7 g/dL (6.6-8.7) 08/30/22 14:45 Albumin 4.0 g/dL (3.5-5.2) 08/30/22 14:45 Globulin 3.7 g/dL (1.3-4.6) 08/30/22 14:45 Echo: My impression: Done on 08/30/2022 1. Normal left ventricular size, systolic function and wall ?thickness, with no regional wall motion abnormalities. Left ?ventricular ejection fraction is estimated at 60 %. Grade III ?diastolic dysfunction (restrictive filling pattern), severely ?elevated filling pressures. ?2. Normal right ventricular size and systolic function. ?3. Mild to moderate mitral valve regurgitation. ?4. Mild pulmonary hypertension with pulmonary pressure estimated ?at 43 mmHg. ?5. When compared to previous study dated 03/28/2017, there may ?not have been any significant change. EKG 1: My Interpretation: The EKG from 08/30/2022 showed normal sinus rhythm with heart rate of 65 bpm. Features of old inferior wall myocardial infarction. Some nonspecific T wave changes in the high lateral leads. Possible left atrial enlargement. Some voltage criteria for LVH EKG computer-generated impression: Chest X-Ray 08/30/22 14:37 Impression: 1. Minimal right hilar prominence which could represent a previous infection or current infection. 2. Recommend repeat chest x-ray in 8-10 days. A&P Assessment and plan (1) Abnormal nuclear stress test: The more Myocardial perfusion imaging is suggestive of myocardial scarring with ischemia, predominantly the distribution of the right coronary artery. However the EKG is unremarkable. No evidence of myocardial injury. For further evaluation of the coronary status, a cardiac catheterization would be appropriate. This was discussed the patient.he risk of bleeding, hematoma, vascular injury, myocardial infarction, CVA, renal failure and other concomitant complications were explained in detail. Patient understood this well and consented to proceed. We may go ahead and do scheduled the procedure for tomorrow. (2) Dyslipidemia: May continue on the current medications. 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 May continue on the current treatment measures. (4) Hypertension: The blood pressures are stage II. We will try to optimize the antihypertensive medications. (5) Abdominal aortic aneurysm: The aortic aneurysm was small in size around 3.3 cm in diameter. We may continue with a follow-up evaluation as scheduled. Plan Patient may be treated with subcu Lovenox, beta-shaquille, aspirin and Plavix. Schedule further cardiac catheterization tomorrow. Based on the angiogram findings, further management decisions will be made. Will keep n.p.o. after midnight. 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
[2022-09-01] MEDS: BuSPIRONE 10 mg Tablet PO (16:10)
--- NOTE | 2022-09-01 18:48 | NMCV_ITS ---
NM xavi perf SPECT r/s* [id number] Tomas Pineda Age: 41 Gender: M : 1980 Exam Date: 09/01/2022 06:59 Ordering Phys: Ryan Curry MD Technologist: MALIHA Castorena Exam Location: [facility] Indications: CHEST PAIN STRESS TEST Please see separate stress test report in [facility] for full findings IMAGE PROTOCOL Rest/Stress 1 Lexiscan Day Radiopharmaceutical Dose (mCi) Administration Site Administered by Rest: Tc-99m 10.1 IV MALIHA Asher Sestamibi Stress:Tc-99m 32.4 IV MALIHA Asher Sestamibi Rest: 01-Sep-2022 60 Discovery 630 Stress: 01-Sep-2022 30 Discovery 630 0.4mg Lexiscan. Images obtained in supine and prone position. SPECT RESULTS Technical Quality: Excellent Raw Data Analysis: Normal Image Corrections: No attenuation or motion correction applied Summed Stress Score: 16 Summed Rest Score: 19 Summed Difference Score: 2 PERFUSION FINDINGS Moderately large area of moderately decreased tracer uptake in the inferior, inferolateral, apical and anterior wall regions with some reversibility mostly in the distribution of the right coronary artery with some involvement of the left anterior descending and circumflex artery FUNCTIONAL RESULTS (calculated via Gated SPECT) Stress Image LV EF (%): 47 Stress EDV (mL):223 TID: 1.04 Stress ESV (mL):118 FUNCTIONAL FINDINGS: Segmental wall motion has revealed mild diffuse hypokinesia of the LV apex. IMPRESSIONS 1. Myocardial perfusion imaging revealing moderate to large area of persistent decreased tracer uptake in the inferior, inferolateral, anterior and apical regions with some reversibility, suggesting myocardial scarring in the distribution of all the 3 coronary arteries with some areas of ischemia predominantly in the distribution of the right coronary artery with some involvement of the left anterior and left circumflex arteries. 2. Diminished LV ejection fraction of 47%. 3. LV wall motion analysis revealing mild diffuse hypokinesia of the LV apex. 4. Moderately dilated LV cavity with an end-systolic volume of 118 ml. No similar previous studies are available for comparison Dr Mary Leong MD [facility] (Electronically Signed) Final Date: 01 September 2022 12:48 S
[2022-09-01] MEDS: pantoprazole DR 40 mg Tablet PO (20:14)
[2022-09-01] MEDS: enoxaparin 80 mg/0.8 mL Syringe SUBCUT (20:15)
[2022-09-01] MEDS: atorvastatin 40 mg Tablet PO (20:15)
[2022-09-02] VITALS (33 sets, daily range): BP systolic 131–163; BP diastolic 72–95; PULSE 49–90; RESP 12–30; TEMP 36.5–36.7; O2SAT 95–96
[2022-09-02] MEDS: HYDROcodone-acetaminophen 10-325 mg Tablet 1 TAB PO ×6 (00:27→20:17)
[2022-09-02] MEDS: trazodone 100 mg Tablet PO ×2 (00:27→20:16)
[2022-09-02 02:10] LABS: Basophils # 0.1 10^3/uL (0.0-0.1); Basophils % 0.7 %; Eosinophils # 0.1 10^3/uL (0.0-0.8); Eosinophils % 1.1 %; Hematocrit 39.1 % (42.0-52.0); Hemoglobin 12.1 g/dL (11.7-16.6); Lymphocytes # 1.4 10^3/uL (0.8-4.8); Lymphocytes % 17.1 %; Mean Corpuscular HGB Conc 30.9 g/dL (30.0-36.0); Mean Corpuscular Hemoglobin 28.9 pg (28.0-34.0); Mean Corpuscular Volume 93.3 fl (80-94); Mean Platelet Volume 11.1 fL (7.4-10.4); Monocytes # 0.4 10^3/uL (0.2-0.9); Monocytes % 5.1 %; Neutrophils # 6.07 10^3/uL (1.8-7.7); Neutrophils % 75.6 %; Nucleated Red Blood Cells % 0 %; Platelet Count 227 10^3/cmm (130-400); Red Blood Count 4.19 10^6/uL (4.1-5.3); Red Cell Distribution Width 16.6 % (12.1-15.1)
[2022-09-02 02:34] LABS: Anion Gap 15.3 (5-19); Blood Urea Nitrogen 8 mg/dL (6-20); Calcium 9.2 mg/dL (8.5-10.5); Carbon Dioxide 23 mmol/L (22-29); Chloride 105 mmol/L (98-107); Glomerular Filtration Rate 124.3 mL/min (90-130); Glucose 90 mg/dL (65-115); Osmolality Calculated 288 mOsm/kg (285-295); Potassium 3.3 mmol/L (3.5-5.1); Sodium 140 mmol/L (136-145)
[2022-09-02] MEDS: aspirin 325 mg Tablet PO (08:21)
[2022-09-02] MEDS: metoprolol tartrate 25 mg Tablet PO ×2 (08:21→20:17)
--- NOTE | 2022-09-02 08:21 | P.PN_ITS ---
Subjective Subjective: The patient is feeling okay. Has no chest pain. No fever or chills. Vitals are stable. Blood pressure still seems to be remaining elevated. Medications: Medication Review Details: Current Medications Acetaminophen (Acetaminophen 325 Mg Tablet) 650 mg PO Q6H PRN PRN Reason: Mild/Mod Pain Or Temp >/= 101 Last Admin: 08/31/22 10:00 Dose: 650 mg Hydrocodone Bitart/Acetaminophen (Hydrocodone-Acetaminophen 10-325 Mg Tablet) 1 tab PO Q4H PRN PRN Reason: Pain Last Admin: 09/02/22 05:31 Dose: 1 tab Aspirin (Aspirin 325 Mg Tablet) 325 mg PO DAILY [facility] Last Admin: 09/01/22 09:04 Dose: 325 mg Atorvastatin Calcium (Atorvastatin 40 Mg Tablet) 40 mg PO BEDTIME [facility] Last Admin: 09/01/22 20:15 Dose: 40 mg Buspirone HCl (Buspirone 10 Mg Tablet) 10 mg PO QID PRN PRN Reason: Anxiety Last Admin: 09/01/22 16:10 Dose: 10 mg Clopidogrel Bisulfate (Clopidogrel 75 Mg Tablet) 75 mg PO DAILY [facility] Last Admin: 09/01/22 09:04 Dose: 75 mg Diphenhydramine HCl (Diphenhydramine 50 Mg Capsule) 50 mg PO ONCE ONE Stop: 09/02/22 14:01 Enoxaparin Sodium (Enoxaparin 80 Mg/0.8 Ml Syringe) 80 mg SUBCUT Q12H [facility] Last Admin: 09/01/22 20:15 Dose: 80 mg Sodium Chloride (Sodium Chloride 0.9%) 1,000 mls @ 50 mls/hr IV .Q20H ONE Stop: 09/03/22 09:59 Isosorbide Mononitrate (Isosorbide Mononitrate Er 30 Mg Tablet) 30 mg PO DAILY [facility] Last Admin: 09/01/22 09:07 Dose: Not Given Metoprolol Tartrate (Metoprolol Tartrate 25 Mg Tablet) 25 mg PO BID@0900,2100 [facility] Last Admin: 09/01/22 20:15 Dose: 25 mg Nicotine (Nicotine 14 Mg Patch) 1 patch TRANSDERMA DAILY [facility] Last Admin: 09/01/22 09:06 Dose: Not Given Nicotine Polacrilex (Nicotine 4 Mg Lozenge) 4 mg MUCOUS MEM Q2H PRN PRN Reason: NICOTINE CRAVINGS Non-Formulary Medication (Fenofibrate) 54 mg PO DAILY [facility] Last Admin: 09/01/22 09:06 Dose: Not Given Ondansetron HCl (Ondansetron 2 Mg/Ml Sdv 2 Ml) 4 mg IVP Q8H PRN PRN Reason: vomiting, or N/V if npo Ondansetron HCl (Ondansetron 2 Mg/Ml Sdv 2 Ml) 4 mg IVP Q2M PRN PRN Reason: NAUSEA Pantoprazole Sodium (Pantoprazole Dr 40 Mg Tablet) 40 mg PO BEDTIME [facility] Last Admin: 09/01/22 20:14 Dose: 40 mg Trazodone HCl (Trazodone 100 Mg Tablet) 100 mg PO BEDTIME [facility] Last Admin: 09/02/22 00:27 Dose: 100 mg Vitals/I&O/Wt Last Vital Signs Temp 97.7 F 09/02/22 04:33 Pulse 70 09/02/22 06:00 Resp 16 09/02/22 04:33 BP 131/72 09/02/22 04:33 Pulse Ox 95 09/02/22 04:33 O2 Del Method 09/02/22 00:00 O2 Flow Rate 2 08/31/22 01:35 09/01/22 09/02/22 09/02/22 22:59 06:59 14:59 Intake Total 920 / 920 Balance 920 / 920 Physical Exam Narrative: GENERAL: The patient is alert and oriented times three. Not in any acute distress. HEENT: No significant pallor, icterus or lymphadenopathy.Oral cavity: There are no mucous membrane lesions. NECK: Trachea appears to be central. No masses noted. No JVD or thyromegaly appreciated. RESPIRATORY: Chest is symmetrical. No intercostals muscle retraction or any accessory muscle activation. There is no chest wall tenderness. Breath sounds are heard bilaterally. No rales or rhonchi heard. No evidence of any consolidation. BREASTS: Deferred. HEART: The heart sounds are normal. No S3 or S4. No significant murmurs. No pericardial rub ABDOMEN: No vessel pulsations or distention. No tenderness. No organomegaly appreciated. Bowel sounds are normally heard. : Deferred. RECTAL: Deferred. LYMPHATIC: No lymphadenopathy noted in the neck. EXTREMITIES: Pulses are palpable but weak bilaterally. MUSCULOSKELETAL: No acute joint deformities or swelling SKIN: There are no significant rashes or ecchymosis NEUROPSYCHIATRIC: The patient is alert and oriented x3. Appears to be in a good mood. No tremors or rigidity noted. Data : 09/02/22 01:42 09/02/22 01:42 Other Labs: Laboratory Last Values WBC 8.0 10^3/uL (4.0-10.0) 09/02/22 01:42 RBC 4.19 10^6/uL (4.1-5.3) 09/02/22 01:42 Hgb 12.1 g/dL (11.7-16.6) 09/02/22 01:42 Hct 39.1 % (42.0-52.0) L 09/02/22 01:42 MCV 93.3 fl (80-94) 09/02/22 01:42 MCH 28.9 pg (28.0-34.0) 09/02/22 01:42 MCHC 30.9 g/dL (30.0-36.0) 09/02/22 01:42 RDW 16.6 % (12.1-15.1) H 09/02/22 01:42 Plt Count 227 10^3/cmm (130-400) 09/02/22 01:42 MPV 11.1 fL (7.4-10.4) H 09/02/22 01:42 Neut % (Auto) 75.6 % 09/02/22 01:42 Lymph % (Auto) 17.1 % 09/02/22 01:42 Guthrie % (Auto) 5.1 % 09/02/22 01:42 Eos % (Auto) 1.1 % 09/02/22 01:42 Baso % (Auto) 0.7 % 09/02/22 01:42 Neut # (Auto) 6.07 10^3/uL (1.8-7.7) 09/02/22 01:42 Lymph # (Auto) 1.4 10^3/uL (0.8-4.8) 09/02/22 01:42 Guthrie # (Auto) 0.4 10^3/uL (0.2-0.9) 09/02/22 01:42 Eos # (Auto) 0.1 10^3/uL (0.0-0.8) 09/02/22 01:42 Baso # (Auto) 0.1 10^3/uL (0.0-0.1) 09/02/22 01:42 Nucleated RBC % (auto) 0 % 09/02/22 01:42 Nucleated RBCs # 0.0 /100WBC 09/02/22 01:42 D-Dimer 0.70 ug/mIFEU (0-0.59) H 08/30/22 14:37 Sodium 140 mmol/L (136-145) 09/02/22 01:42 Potassium 3.3 mmol/L (3.5-5.1) L 09/02/22 01:42 Chloride 105 mmol/L (98-107) 09/02/22 01:42 Carbon Dioxide 23 mmol/L (22-29) 09/02/22 01:42 Anion Gap 15.3 (5-19) 09/02/22 01:42 BUN 8 mg/dL (6-20) 09/02/22 01:42 Creatinine 0.7 mg/dL (0.7-1.2) 09/02/22 01:42 GFR Calculation 124.3 mL/min (90-130) 09/02/22 01:42 Glucose 90 mg/dL (65-115) 09/02/22 01:42 Calculated Osmolality 288 mOsm/kg (285-295) 09/02/22 01:42 Calcium 9.2 mg/dL (8.5-10.5) 09/02/22 01:42 Total Bilirubin 0.5 mg/dL (0.15-1.2) 08/30/22 14:45 AST 15 U/L (0-40) 08/30/22 14:45 ALT 17 U/L (0-41) 08/30/22 14:45 Alkaline Phosphatase 73 U/L (40-130) 08/30/22 14:45 Troponin T Baseline 13 ng/L (0-15) 08/30/22 14:45 Troponin T 120 Minute 15.52 ng/L (0-15) H 08/30/22 17:00 Delta Troponin T 2.52 ABS# (0-10) 08/30/22 17:00 Troponin T Hi Sens 6Hr 14.78 ng/L (0-15) 08/30/22 20:15 Troponin T Hi Sens 6Hr Delta 1.78 ng/L (0-12) 08/30/22 20:15 Total Protein 7.7 g/dL (6.6-8.7) 08/30/22 14:45 Albumin 4.0 g/dL (3.5-5.2) 08/30/22 14:45 Globulin 3.7 g/dL (1.3-4.6) 08/30/22 14:45 A&P Assessment and plan (1) Abnormal nuclear stress test: The more Myocardial perfusion imaging is suggestive of myocardial scarring with ischemia, predominantly the distribution of the right coronary artery. However the EKG is unremarkable. No evidence of myocardial injury. For further evaluation of the coronary status, a cardiac catheterization would be appropriate. This was discussed the patient.he risk of bleeding, hematoma, v ascular injury, myocardial infarction, CVA, renal failure and other concomitant complications were explained in detail. Patient understood this well and consented to proceed. The patient is on schedule for the cardiac catheterization this afternoon. (2) Dyslipidemia: May continue on the current medications. 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 May continue on the current treatment measures. (4) Hypertension: The blood pressures are stage II. We will try to optimize the antihypertensive medications. (5) Abdominal aortic aneurysm: The aortic aneurysm was small in size around 3.3 cm in diameter. We may continue with a follow-up evaluation as scheduled. Plan Other problems are Hypokalemia-need to be corrected Based on the angiogram findings, further recommendations will be made. 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
[2022-09-02] MEDS: enoxaparin 80 mg/0.8 mL Syringe SUBCUT (08:22)
[2022-09-02] MEDS: clopidogrel 75 mg Tablet PO (08:22)
[2022-09-02] MEDS: diphenhydrAMINE 50 mg Capsule PO (13:48)
[2022-09-02] MEDS: sodium chloride 0.9% 1,000 ML 50 ML IV (13:48)
--- NOTE | 2022-09-02 13:57 | XACV_ITS ---
Exam Room: 2 Ht: 170 cm Wt: 84 kg BSA: 2.01 m2 Gender: Male : 1980 Any Known Allergies: Other Exam Priority: Routine Procedure(s): Procedure Description: Diagnostic procedure Procedure Description: Left Heart Catheterization Procedure Description: Aortogram Procedure Description: Coronary Angiography Salo LINDER; Diagnostic Cath Status: Urgent Diagnostic Findings * The left main is a medium caliber vessel with no significant stenotic lesions. * The left anterior descending artery is a medium caliber vessel which was found to have mild diffuse intimal irregularities proximally. The artery appears to be flush occluded at the takeoff of the second septal superintendent stevedoring. The first diagonal branch is relatively small caliber vessel with no significant stenotic lesions.. * The left circumflex artery is a medium caliber vessel which was found to have extensive fibromuscular dysplasia in the proximal to mid segment. The obtuse marginal branches are found to have no significant stenotic lesions. * The right coronary artery is a medium caliber dominant vessel which was found to have severe diffuse fibromuscular dysplasia involving the proximal and the mid segment. Just before the terminal bifurcation also there was moderate fibromuscular dysplasia. Right to left collaterals were noted filling of the distal LAD. The first RV branch was found to have moderate disease proximally. * The arterial access was attempted initially at the right groin. There is difficulty in getting the wire into the aorta. I performed an iliac angiogram by injecting into the femoral sheath. The common iliac artery was found to have a high-grade stenosis. For this reason, the left common femoral artery was accessed. * Patient is known to have infrarenal aortic aneurysm. We performed an abdominal aortogram with iliac angiogram by placing a pigtail catheter in the abdominal aorta, below the renal artery level. Digital subtraction angiogram was performed. * Infrarenal abdominal aorta was found to be diffusely ectatic. Both the common iliac arteries were found to have fibromuscular dysplasia. On the right side, the artery was found to have severe FMD causing an ostial narrowing of around 70%. On the left side, there was ostial narrowing of around 40%.. Conclusions 1. 41-year-old white male with history of heavy smoking abuse, hypertension and atherosclerotic heart diseas, presenting with unstable anginal symptoms. Myocardial perfusion imaging revealing areas of fixed and reversible defects in the distribution of all the 3 coronary arteries, predominantly in the distribution of the right coronary artery. Cardiac colorization revealed the following. 2. Total occlusion of the left and descending artery in the region of the stent with right to left collaterals. Severe fibromuscular dysplasia involving the proximal segments of the right coronary artery and left circumflex artery. Abdominal aortogram with runoff revealing ectasia of the infrarenal aorta. Severe FMD involving the right common iliac artery, causing around 70% ostial narrowing. FMD involving the left common iliac artery causing a narrowing of around 40% at the ostium. 3. The angiogram findings were reviewed and discussed with Dr. Hamlin. The LAD lesion was found to be technically challenging to intervene. For the time being, it was thought be appropriate to optimize the medical treatment. May consider surgical intervention in the future. For the severe FMD. The FMD lesions in the RCA and circumflex arteries were similar to what he had in in 2017.. Diagnostic RX Recommendation: medical therapy and/or counseling LV EDP: 21 mmHg Left Ventriculography Findings: * LV gram was not performed because of the limitations on the dye usage. Pressures Phase:Rest AO : 126 / 94 ( 110 ) @ 4:02:00 PM 143 / 78 ( 103 ) @ 4:16:00 PM 144 / 78 ( 104 ) @ 4:16:00 PM 158 / 74 ( 101 ) @ 4:17:00 PM LV : 132 / 2 / 21 @ 4:15:00 PM 136 / 2 / 20 @ 4:16:00 PM Valves Phase:DefaultPhase AV : 0.0 @ 4:30:55 PM AV Mean Gradient: 0.0 @ 4:30:55 PM Clinical Evaluation EBL: 5mL-10mL Procedural Details Pre-Procedure Time Out. Identified patient by full name and date of as verbalized by the patient/guarantor. Accurate & Complete Informed Consent: Yes. Does the consent match the physician's order: Yes. Inpatient/Outpatient History & Physical on Chart: Yes. If H&P is completed, is and addenduem needed: Yes; If yes, is the addendum complete: Yes. Visualize and Verify Site with Patient/Guarantor: N/A. Relevant Radiology Images available: Yes. Pre-op teaching completed and patient verbalized understanding. The risks, benefits, and alternatives of sedation and/or procedure were discussed by physician. The patient agrees to continue. Procedure started. [facility] Clinical Fraility Score: 3: Managing Well. 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 Chest Pain Symptom Assessment: Typical Angina Symptoms. Cardiovascular Instability: No. Correct patient, site and procedure confirmed by cath team. PERRLA. Strong, equal hand electronic operator bilaterally. Lungs clear x 5 lobes. IV Site on Arrival: 20 gauge in the left anticubital. IV Fluids: 0.9% NaCl at KVO. 50 mL infused prior to blender laborer. Pre Procedural Pulses: bilateral dorsalis pedis was Doppled. Pre Procedural Pulses: bilateral posterior tibial was Doppled. Pre Procedural Pulses: bilateral radial was 1+. Oxygen started at 2liters/min via nasal canula. right groin was prepped with chloroprep then draped in the usual sterile fashion. right radial was prepped with chloroprep then draped in the usual sterile fashion. Physician notified. Baseline sample Acquired. HR: 72 BPM. Equipment: 6F - Radial. Patients significant other in the Timber Setter waiting room. Dr. Leong will update at the completion of the procedure. Cardiac Cath Pack. ACIST Manifold Kit Model BT 2000. Heparinized Saline (2 units/mL), 1000 mL bag. Physician arrived. Physician scrubbed in. Immediate Pre-Procedure Time Out. Correct Patient: Yes; Correct Procedure: Yes; Correct Site: Yes; Correct Patient Position: Yes; Correct Supplies: Yes; Dried Flammable Prep: Yes; Blood Products Available: N/A;. Lidocaine 1% infiltrated to the right radial. Unable to obtain radial access. MD attempting to gain access in the Femoral artery. Lidocaine 1% infiltrated to the right groin. Add inventory: Micropuncture kit, 6 fr femoral sheath. Arterial access obtained with micropuncture set. Hand injection performed through the sheath of the right common femoral artery. A 5 albanian JR4 catheter in over the exchange wire. Cine of the right common iliac artery performed. unable to advance wire, catheter out. left groin was prepped with chloroprep then draped in the usual sterile fashion. Right femoral sheath sutured into position with 2-[address] Leong. No oozing or signs and symptoms of hematoma noted. A Suture was successful obtaining hemostatsis at the Right Femoral artery insertion site. Lidocaine 1% infiltrated to the left groin. Arterial access obtained with micropuncture set. A 5 albanian JR4 catheter in over the standard J wire. Multiple views taken of right coronary artery. Catheter removed over the standard J wire. A 5 albanian JL4 catheter in over the standard J wire. Multiple views taken of left coronary artery. Catheter removed over the standard J wire. Dr. Hamlin here to view cineography. Flushing both the sheaths periodically with heparinized saline to maintain patency. A Suture was successful obtaining hemostatsis at the Left Femoral artery insertion site by Paulino Darnell RN, SERICULTURIST. A 5 albanian Angled Pig catheter in over the standard J wire. EDP Sample taken: LV 132/2,21; HR: 68 BPM; SpO2: 97%. Pullback taken: LV 136/2,20; AO 143/78(103); Mean: 0mmHg, Peak to Peak: 0mmHg, SEP: 5sec/min; HR: 70 BPM; SpO2: 98%. Aortogram performed in AP @ 10 mL/second for a total of 30 mL in DSA. Catheter removed over the standard J wire. Dr. Leong scrubbed out. Arterial sheath x 2 flushed and connected to tranducer and pressure bag with heparinized saline. Sterile 4x4's and Op-site applied over both femoral sites. No oozing or signs and symptoms of hematoma noted. Post Procedure: Pulses reassessed and unchanged. PERRLA. Strong, equal hand electronic operator bilaterally. No VTE prophylaxis required. Medication's Wasted: Lidocaine 1% = 4 mL. Medication's Wasted: Verapamil = 5 mg. Medication's Wasted: Nitro = 50 mg. Medication's Wasted: Heparin = 500 units. Total IV fluids: 80 mL. Post-op diagnosis: Occluded LAD stent, FMD of the CX, RCA, & Iliac arteries. Complications: none. Estimated blood loss: 5mL-10mL. Responsiveness - Normal response to verbal stimuli; alert and oriented, PERRLA. Airway - Unaffected, no intervention required; spontaneous ventilation. Circulation: W/N/L, pulses unchanged. Nausea/Vomiting: No. Procedure completed. Patient transferred by bed to 1st floor. Vital chart was stopped. Access Site Site: Right Femoral artery Sheath Size: 5 Fr Hemostasis Method: Suture Hemostasis Success: Successful Site: Left Femoral artery Sheath Size: 5 Fr Hemostasis Method: Suture Hemostasis Success: Successful Procedure Medications Start: 3:16 PM Stop: 3:16 PM Medication: Versed Amount: 1 mg Route: I.V. Start: 3:16 PM Stop: 3:16 PM Medication: Fentanyl Amount: 50 mcg Route: I.V. Start: 3:20 PM Stop: 3:20 PM Medication: Versed Amount: 1 mg Route: I.V. Start: 3:21 PM Stop: 3:21 PM Medication: Fentanyl Amount: 50 mcg Route: I.V. Start: 3:24 PM Stop: 3:24 PM Medication: Versed Amount: 1 mg Route: I.V. Start: 3:27 PM Stop: 3:27 PM Medication: Versed Amount: 1 mg Route: I.V. Start: 3:31 PM Stop: 3:31 PM Medication: Fentanyl Amount: 50 mcg Route: I.V. Start: 3:33 PM Stop: 3:33 PM Medication: Versed Amount: 1 mg Route: I.V. Start: 3:38 PM Stop: 3:38 PM Medication: Versed Amount: 1 mg Route: I.V. Start: 3:46 PM Stop: 3:46 PM Medication: Fentanyl Amount: 50 mcg Route: I.V. Start: 3:54 PM Stop: 3:54 PM Medication: Heparin Amount: 1500 units Route: I.V. I, the attending physician, have reviewed and verified all procedure medications. Yes, all medications given per verbal order History/Risk Factors Hypertension: Yes Dyslipidemia: Yes Peripheral Arterial Disease (PAD): No Myocardial Infarction ([place]): No Obesity: No Renal Disease: No Tobacco Use: Current/Recent(w/in 1 year) Prior Interventions PCI: Yes CABG: No Valve Surgery: No Date of PCI: 03/28/2017 Report Signatures Finalized by Dr Mary Leong MD [facility] on 09/02/2022 05:07 PM
--- NOTE | 2022-09-02 14:02 | W.PM.OPSUD ---
Surgery/Procedure H&P Update DATE OF PROCEDURE: September 02, 2022 DATE H&P PERFORMED: 09/01/22 H&P UPDATE INFORMATION: I have reviewed H&P completed within last 30 days, I have examined patient prior to procedure and No changes to prior documentation PREOP DIAGNOSIS: ASHD PRIMARY INDICATION FOR PROCEDURE: History of CAD, status post PCI, extensive vascular disease now presenting with prolonged episode of chest pain. Abnormal Myocardial perfusion imaging PLANNED PROCEDURE: Operation Date: 09/02/22 15:30 Proposed Procedures p Cardiac Catheterization(Left) - Mary Leong MD PHYSICAL EXAM: alert, oriented x 3, clear to auscultation bilaterally and regular rate & rhythm AIRWAY EVAL/ANESTHESIA PLAN: normal airway, see other exam findings, ASA III, Monitored Anesthesia, Local Anesthesia, Risks, benefits & alternatives of sedation and/or procedure discussed and Patient agrees to continue as planned
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
[2022-09-02] MEDS: ranolazine (12HR) 500 mg Tablet PO (18:15)
[2022-09-02] MEDS: pantoprazole DR 40 mg Tablet PO (20:17)
[2022-09-02] MEDS: ALPRAZolam 0.5 mg Tablet 0.25 MG PO (20:17)
[2022-09-02] MEDS: atorvastatin 40 mg Tablet PO (20:17)
[2022-09-03] VITALS: BP 147/80; PULSE 64; RESP 18; TEMP 36.6; O2SAT 97
[2022-09-03] MEDS: HYDROcodone-acetaminophen 10-325 mg Tablet 1 TAB PO ×4 (00:23→12:13)
[2022-09-03 01:08] VITALS: PULSE 67
[2022-09-03 04:30] VITALS: BP 137/85; PULSE 58; RESP 13; TEMP 36.5; O2SAT 95
[2022-09-03 05:45] VITALS: PULSE 62
[2022-09-03] MEDS: ranolazine (12HR) 500 mg Tablet PO (08:24)
[2022-09-03] MEDS: BuSPIRONE 10 mg Tablet PO (08:24)
[2022-09-03] MEDS: amlodipine 10 mg Tablet PO (08:25)
[2022-09-03] MEDS: clopidogrel 75 mg Tablet PO (08:25)
[2022-09-03 08:31] VITALS: BP 152/98; PULSE 98; RESP 15; TEMP 36.7; O2SAT 97
[2022-09-03] MEDS: metoprolol tartrate 25 mg Tablet PO (08:32)
--- NOTE | 2022-09-03 09:28 | PM.PN ---
Subjective Subjective: She had a cardiac catheterization yesterday. He was found to have total occlusion of the stented segment of the left anterior descending artery. He had a fairly good right to left collaterals. He also has severe fibromuscular dysplasia involving the proximal segments of the left circumflex artery and the right coronary artery. 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 Moderate FMD was noted in the left common iliac artery. Medications: Medication Review Details: Current Medications Acetaminophen (Acetaminophen 325 Mg Tablet) 650 mg PO Q6H PRN PRN Reason: MILD PAIN Hydrocodone Bitart/Acetaminophen (Hydrocodone-Acetaminophen 10-325 Mg Tablet) 1 tab PO Q4H PRN PRN Reason: Pain Last Admin: 09/03/22 08:24 Dose: 1 tab Al Hydrox/Mg Hydrox/Simethicone (Yegq-Fhk-Edqnsshjh-Brian 30 Ml Udc) 30 ml PO Q15M PRN PRN Reason: INDIGESTION Alprazolam (Alprazolam 0.5 Mg Tablet) 0.25 mg PO TID PRN PRN Reason: ANXIETY Last Admin: 09/02/22 20:17 Dose: 0.25 mg Amlodipine Besylate (Amlodipine 10 Mg Tablet) 10 mg PO DAILY [facility] Last Admin: 09/03/22 08:25 Dose: 10 mg Aspirin (Aspirin 325 Mg Tablet) 325 mg PO DAILY [facility] Last Admin: 09/02/22 08:21 Dose: 325 mg Atorvastatin Calcium (Atorvastatin 40 Mg Tablet) 40 mg PO BEDTIME [facility] Last Admin: 09/02/22 20:17 Dose: 40 mg Atropine Sulfate (Atropine 1 Mg/Ml Sdv 1 Ml) 0.5 mg IVP PRN PRN PRN Reason: Symptomatic bradycardia Buspirone HCl (Buspirone 10 Mg Tablet) 10 mg PO QID PRN PRN Reason: Anxiety Last Admin: 09/03/22 08:24 Dose: 10 mg Clopidogrel Bisulfate (Clopidogrel 75 Mg Tablet) 75 mg PO DAILY [facility] Last Admin: 09/03/22 08:25 Dose: 75 mg Enoxaparin Sodium (Enoxaparin 80 Mg/0.8 Ml Syringe) 80 mg SUBCUT Q12H [facility] Last Admin: 09/03/22 08:22 Dose: Not Given Sodium Chloride (Sodium Chloride 0.9%) 1,000 mls @ 50 mls/hr IV .Q20H ONE Stop: 09/03/22 09:59 Last Infusion: 09/03/22 02:54 Dose: Infused Magnesium Hydroxide (Magnesium Hydroxide 30 Ml Udc) 30 ml PO DAILY PRN PRN Reason: CONSTIPATION Metoprolol Tartrate (Metoprolol Tartrate 25 Mg Tablet) 25 mg PO BID@0900,2100 [facility] Last Admin: 09/03/22 08:32 Dose: 25 mg Naloxone HCl (Naloxone 0.4 Mg/Ml Sdv) 0.1 mg IVP Q2M PRN PRN Reason: RESPIRATORY RATE < 8/MIN Nicotine (Nicotine 14 Mg Patch) 1 patch TRANSDERMA DAILY [facility] Last Admin: 09/03/22 08:26 Dose: Not Given Nicotine Polacrilex (Nicotine 4 Mg Lozenge) 4 mg MUCOUS MEM Q2H PRN PRN Reason: NICOTINE CRAVINGS Nitroglycerin (Nitroglycerin 0.4 Mg Sublingual Tablet) 0.4 mg SUBLINGUAL Q5M PRN PRN Reason: CHEST PAIN Non-Formulary Medication (Fenofibrate) 54 mg PO DAILY [facility] Last Admin: 09/03/22 08:25 Dose: Not Given Ondansetron HCl (Ondansetron 2 Mg/Ml Sdv 2 Ml) 4 mg IVP Q8H PRN PRN Reason: vomiting, or N/V if npo Ondansetron HCl (Ondansetron 2 Mg/Ml Sdv 2 Ml) 4 mg IVP Q2M PRN PRN Reason: NAUSEA Pantoprazole Sodium (Pantoprazole Dr 40 Mg Tablet) 40 mg PO BEDTIME [facility] Last Admin: 09/02/22 20:17 Dose: 40 mg Ranolazine (Ranolazine (12hr) 500 Mg Tablet) 500 mg PO BID [facility] Last Admin: 09/03/22 08:24 Dose: 500 mg Temazepam (Temazepam 15 Mg Capsule) 15 mg PO BEDTIME PRN PRN Reason: INSOMNIA Trazodone HCl (Trazodone 100 Mg Tablet) 100 mg PO BEDTIME [facility] Last Admin: 09/02/22 20:16 Dose: 100 mg Vitals/I&O/Wt Last Vital Signs Temp 98.1 F 09/03/22 08:31 Pulse 98 09/03/22 08:31 Resp 15 09/03/22 08:31 BP 152/98 09/03/22 08:31 Pulse Ox 97 09/03/22 08:31 O2 Del Method 09/03/22 08:31 O2 Flow Rate 2 08/31/22 01:35 09/02/22 09/03/22 09/03/22 22:59 06:59 14:59 Intake Total 240 / 240 1000 / 1240 Balance 240 / 240 1000 / 1240 Physical Exam Narrative: GENERAL: The patient is alert and oriented times three. Not in any acute distress. HEENT: No significant pallor, icterus or lymphadenopathy.Oral cavity: There are no mucous membrane lesions. NECK: Trachea appears to be central. No masses noted. No JVD or thyromegaly appreciated. RESPIRATORY: Chest is symmetrical. No intercostals muscle retraction or any accessory muscle activation. There is no chest wall tenderness. Breath sounds are heard bilaterally. No rales or rhonchi heard. No evidence of any consolidation. BREASTS: Deferred. HEART: The heart sounds are normal. No S3 or S4. No significant murmurs. No pericardial rub ABDOMEN: No vessel pulsations or distention. No tenderness. No organomegaly appreciated. Bowel sounds are normally heard. : Deferred. RECTAL: Deferred. LYMPHATIC: No lymphadenopathy noted in the neck. EXTREMITIES: The groins have no hematoma or bleeding. Minimal ecchymosis present in the right groin. MUSCULOSKELETAL: No acute joint deformities or swelling SKIN: There are no significant rashes or ecchymosis NEUROPSYCHIATRIC: The patient is alert and oriented x3. Appears to be in a good mood. No tremors or rigidity noted. Data : 09/02/22 01:42 09/03/22 10:10 Other Labs: Laboratory Last Values WBC 8.0 10^3/uL (4.0-10.0) 09/02/22 01:42 RBC 4.19 10^6/uL (4.1-5.3) 09/02/22 01:42 Hgb 12.1 g/dL (11.7-16.6) 09/02/22 01:42 Hct 39.1 % (42.0-52.0) L 09/02/22 01:42 MCV 93.3 fl (80-94) 09/02/22 01:42 MCH 28.9 pg (28.0-34.0) 09/02/22 01:42 MCHC 30.9 g/dL (30.0-36.0) 09/02/22 01:42 RDW 16.6 % (12.1-15.1) H 09/02/22 01:42 Plt Count 227 10^3/cmm (130-400) 09/02/22 01:42 MPV 11.1 fL (7.4-10.4) H 09/02/22 01:42 Neut % (Auto) 75.6 % 09/02/22 01:42 Lymph % (Auto) 17.1 % 09/02/22 01:42 [place] % (Auto) 5.1 % 09/02/22 01:42 Eos % (Auto) 1.1 % 09/02/22 01:42 Baso % (Auto) 0.7 % 09/02/22 01:42 Neut # (Auto) 6.07 10^3/uL (1.8-7.7) 09/02/22 01:42 Lymph # (Auto) 1.4 10^3/uL (0.8-4.8) 09/02/22 01:42 [place] # (Auto) 0.4 10^3/uL (0.2-0.9) 09/02/22 01:42 Eos # (Auto) 0.1 10^3/uL (0.0-0.8) 09/02/22 01:42 Baso # (Auto) 0.1 10^3/uL (0.0-0.1) 09/02/22 01:42 Nucleated RBC % (auto) 0 % 09/02/22 01:42 Nucleated RBCs # 0.0 /100WBC 09/02/22 01:42 D-Dimer 0.70 ug/mIFEU (0-0.59) H 08/30/22 14:37 Sodium 136 mmol/L (136-145) 09/03/22 10:10 Potassium 3.7 mmol/L (3.5-5.1) 09/03/22 10:10 Chloride 104 mmol/L (98-107) 09/03/22 10:10 Carbon Dioxide 22 mmol/L (22-29) 09/03/22 10:10 Anion Gap 13.7 (5-19) 09/03/22 10:10 BUN 8 mg/dL (6-20) 09/03/22 10:10 Creatinine 0.8 mg/dL (0.7-1.2) 09/03/22 10:10 GFR Calculation 106.5 mL/min (90-130) 09/03/22 10:10 Glucose 110 mg/dL (65-115) 09/03/22 10:10 Calculated Osmolality 281 mOsm/kg (285-295) L 09/03/22 10:10 Calcium 9.1 mg/dL (8.5-10.5) 09/03/22 10:10 Total Bilirubin 0.5 mg/dL (0.15-1.2) 08/30/22 14:45 AST 15 U/L (0-40) 08/30/22 14:45 ALT 17 U/L (0-41) 08/30/22 14:45 Alkaline Phosphatase 73 U/L (40-130) 08/30/22 14:45 Troponin T Baseline 13 ng/L (0-15) 08/30/22 14:45 Troponin T 120 Minute 15.52 ng/L (0-15) H 08/30/22 17:00 Delta Troponin T 2.52 ABS# (0-10) 08/30/22 17:00 Troponin T Hi Sens 6Hr 14.78 ng/L (0-15) 08/30/22 20:15 Troponin T Hi Sens 6Hr Delta 1.78 ng/L (0-12) 08/30/22 20:15 Total Protein 7.7 g/dL (6.6-8.7) 08/30/22 14:45 Albumin 4.0 g/dL (3.5-5.2) 08/30/22 14:45 Globulin 3.7 g/dL (1.3-4.6) 08/30/22 14:45 A&P Assessment and plan (1) Abnormal nuclear stress test: The cardiac catheterization data was once again discussed with the patient. At this point, optimizing medical treatment would be the plan of action. I agree with the Ranexa since the patient cannot tolerate the isosorbide. (2) Dyslipidemia: May continue on the current medications. 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 May continue on the current treatment measures. (4) Hypertension: The blood pressures are stage II. We will try to optimize the antihypertensive medications. (5) Abdominal aortic aneurysm: The aortic aneurysm was small in size around 3.3 cm in diameter. We may continue with a follow-up evaluation as scheduled. With the abdominal aortogram, the maximum diameter in the infrarenal aorta measured 2.[address] measured 3.1 cm. This could be related to the luminal narrowing from the mural thrombus Plan Other problems are Hypokalemia-need to be corrected Patient was started on Rannexa and amlodipine by Dr. Curry. This may be continued. Will check on the BMP today. If the levels are acceptable, should be able to go home today. Attestations Medical Necessity Statement*: Possible discharge home today-defered to primary Coding Level of Care Code Acute Help Desk Specialist for g Fwd Diagnoses Abnormal nuclear stress test R94.39 Dyslipidemia E78.5 Celiac artery stenosis I77.4 Hypertension I10 Abdominal aortic aneurysm I71.4
[2022-09-03 11:01] LABS: Anion Gap 13.7 (5-19); Blood Urea Nitrogen 8 mg/dL (6-20); Calcium 9.1 mg/dL (8.5-10.5); Carbon Dioxide 22 mmol/L (22-29); Chloride 104 mmol/L (98-107); Glomerular Filtration Rate 106.5 mL/min (90-130); Glucose 110 mg/dL (65-115); Osmolality Calculated 281 mOsm/kg (285-295); Potassium 3.7 mmol/L (3.5-5.1); Sodium 136 mmol/L (136-145)
--- NOTE | 2022-09-03 12:00 | PC.NURSE ---
Discharge to home Pt stated he wants his new Rx refilled to [facility] in [facility], however his home med hydrocodone wants to be refilled but was sent to [facility]. Dr notified that it went there and pt stated he cannot wait for Monday to pick it up. Discharge packet provided to pt. Notified Pt upon discharge that pt's med is sent [facility]. Rx for amlodipine and ranexa provided.
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
== END 2022-09-03 13:00 | disposition home or self-care (01) | DRG 287 ==
LOC: ER 19:09 → CSU 19:34
PROVIDERS: Family Medicine; Internal Medicine Cardiovascular Disease; Admitting Provider Internal Medicine; Emergency Provider Emergency Medicine; PCP Nurse Practitioner Family; Visit Provider Internal Medicine
PROC: 4A023N7 Measurement of Cardiac Sampling and Pressure, Left Heart, Percutaneous Approach (ICD-10-PCS; principal; 2022-09-02 15:30)
DX: T82.855A Stenosis of coronary artery stent, initial encounter (principal); I25.110 Atherosclerotic heart disease of native coronary artery with unstable angina pectoris; F33.9 Major depressive disorder, recurrent, unspecified; Y71.8 Miscellaneous cardiovascular devices associated with adverse incidents, not elsewhere classified; I73.9 Peripheral vascular disease, unspecified; I70.1 Atherosclerosis of renal artery; I71.43 Infrarenal abdominal aortic aneurysm, without rupture; G89.29 Other chronic pain; M54.9 Dorsalgia, unspecified; F17.210 Nicotine dependence, cigarettes, uncomplicated; F41.1 Generalized anxiety disorder; I25.2 Old myocardial infarction; Z82.49 Family history of ischemic heart disease and other diseases of the circulatory system; Z79.891 Long term (current) use of opiate analgesic; Z79.02 Long term (current) use of antithrombotics/antiplatelets; E87.6 Hypokalemia; I77.3 Arterial fibromuscular dysplasia; R94.39 Abnormal result of other cardiovascular function study
CPT/HCPCS: 36415; 71045; 78452; 80048; 80053; 84484; 85025; 85378; 93005; 93017; 93306; 93458; 93975; 96360; 96361; 96372; 96374; 96376; 99152; 99153; 99285; A9500; C1769; C1887; C1894; G0278; G0378; J1644; J1650; J2250; J2270; J2785; J3010; J3490; J7030; Q0163; Q9967

== ENCOUNTER → 2022-09-19 09:27 | Outpatient (BNVA) | payer MEDICARE, SELFPAY | PROVIDERS: PCP Nurse Practitioner Family; Visit Provider Nurse Practitioner Family | DX: I25.10 Atherosclerotic heart disease of native coronary artery without angina pectoris (principal); F17.210 Nicotine dependence, cigarettes, uncomplicated; I10 Essential (primary) hypertension | CPT/HCPCS: 80048; 99214 ==

== ENCOUNTER 2022-09-27 15:20 | Outpatient (CLI) | payer MEDICARE, SELFPAY ==
--- NOTE | 2022-09-27 15:31 | XR_ITS ---
WS: [id number] KUB, AP view, 09/27/2022 Clinical Data: stones Comparison: None. Findings: No abnormal intraabdominal masses or calcifications are seen. There is no dilatated small bowel or ev idence of obstruction. There is a moderate amount of fecal material in the colon. XR/XR KUB [id number] Impression: Negative KUB.
== END 2022-09-27 15:21 | disposition home or self-care (01) ==
LOC: RAD 15:20
PROVIDERS: PCP Nurse Practitioner Family; Visit Provider Urology
DX: N20.9 Urinary calculus, unspecified (principal); N52.9 Male erectile dysfunction, unspecified; I25.10 Atherosclerotic heart disease of native coronary artery without angina pectoris; R68.82 Decreased libido; N23 Unspecified renal colic
CPT/HCPCS: 74018; 81003; 99204

== ENCOUNTER → 2022-12-07 09:59 | Outpatient (BNVA) | payer MEDICARE, SELFPAY | PROVIDERS: PCP Nurse Practitioner Family; Visit Provider Internal Medicine Cardiovascular Disease | DX: I25.10 Atherosclerotic heart disease of native coronary artery without angina pectoris (principal); I77.3 Arterial fibromuscular dysplasia; I10 Essential (primary) hypertension; E78.5 Hyperlipidemia, unspecified; F17.210 Nicotine dependence, cigarettes, uncomplicated | CPT/HCPCS: 99214 ==

== ENCOUNTER 2023-04-28 03:16 | Observation (INO) | payer MEDICARE, SELFPAY ==
[2023-04-28 03:17] VITALS: BP 162/85; PULSE 94; RESP 16; TEMP 36.8; O2SAT 92; BMI 33.9
--- NOTE | 2023-04-28 03:17 | ED_ITS ---
Documented by User: Toan Burdick MD 05/10/23 11:06 HPI - Chest Pain General: Chief Complaint: ER Hold Stated Complaint: CP Time Seen by Provider: 04/28/23 03:16 History of Present Illness: 42-year-old gentleman with extensive cardiac history presenting due to chest pain. He reports that chest pain has recently been well controlled and very rare. He woke up with symptoms approximately 1 hour prior to arrival with burning sensation in his chest associated with shortness of breath and nausea as well as diaphoresis. 1 nitro only minimally improved symptoms however a second brought it to 7 out of 10. Subsequently it is improved with additional nitro. Denies recent changes to health otherwise. He has been compliant with medication regimen. No other specific changes in health, exacerbating, or alleviating factors identified. Onset (ago): hour(s) Timing of current episode: constant Onset: awoke with symptoms Severity: severe Quality: aching and burning Relieving factors: nitroglycerin Review of Systems General: Reports: 10 or more systems reviewed and unremarkable except in HPI and below PFSH ED PFSH: Medical History Abdominal aortic aneurysm Abnormal nuclear stress test Angina pectoris, unstable Arterial fibromuscular dysplasia Celiac artery stenosis Coronary artery disease Decreased libido Low normal testosterone, 312 in 2021 on testosterone replacement therapy. Dyslipidemia Erectile dysfunction Generalized anxiety disorder High blood pressure Hypertension Major depressive disorder, recurrent, moderate Nephrolithiasis Nicotine dependence, unspecified, uncomplicated Urolithiasis Surgical History H/O heart artery stent Family History Other CAD (coronary artery disease) Denies family history of Diabetes Hyperlipidemia Hypertension Social History Smoking and tobacco status: current every day smoker cigarettes Packs smoked per day: 1 Years cigarettes smoked: 20 Quit status (tobacco): has tried quititng Number of times tried to quit to bacco: 2 Second hand smoke exposure: Yes Smoking risk assessment/counseling performed?: No Alcohol intake: former Substance/Drug Use: never Household members: spouse Marital status: Current occupational status: disabled Physical Exam Const: COMMON NORMALS: alert GENERAL APPEARANCE: cooperative and well developed HENMT: COMMON NORMALS: normocephalic and atraumatic HEAD & SCALP: normocephalic and atraumatic Eye: COMMON NORMALS: conjunctivae normal CONJUNCTIVA: Yes conjunctivae normal SCLERA: sclerae normal Neck/C-Spine: COMMON NORMALS: supple GENERAL: Yes trachea midline Resp: COMMON NORMALS: clear to auscultation bilaterally EFFORT & INSPECTION: Yes able to speak in complete sentences AUSCULTATION: clear to auscultation bilaterally Cardio: COMMON NORMALS: regular rate and regular rhythm RATE: regular rate RHYTHM: regular rhythm GI: COMMON NORMALS: Soft to palpation PALPATION: Yes Soft to palpation and No Tenderness to palpation present (GI) Extremity: GENERAL: Yes normal exam except as noted and No edema Neuro: COMMON NORMALS: moves all extremities SENSORIUM/ORIENTATION: Yes alert and No Orientation impaired Psych: COMMON NORMALS: mental status grossly normal and Normal thought process present THOUGHT PROCESS: Normal thought process present Course Vital Signs: Vital signs: Vital Signs Temperature 98.3 F 04/28/23 03:17 Pulse Rate 74 04/28/23 14:26 Respiratory Rate 12 04/28/23 14:26 Blood Pressure 151/83 04/28/23 14:26 Pulse Oximetry 95 04/28/23 14:26 Oxygen Delivery Me thod Nasal Cannula 04/28/23 09:41 Oxygen Flow Rate 2 04/28/23 09:41 MDM - Chest Pain Medical Decision Making 42-year-old gentleman with cardiac history presenting due to chest pain. Recently chest pain has been well controlled with very rare episodes. Exam as above. Nontoxic. Chest pain not reproducible with palpation on exam. EKG demonstrates sinus rhythm with normal axis and intervals, nonspecific ST segment abnormalities, no STEMI. Laboratory studies and imaging ordered. Handed off to Dr. Abreu pending completion of ED evaluation. Care assumed at change of shift. Patient's symptoms have mostly resolved but the second troponin is elevated he has a positive delta of +8. Given his known history of cardiac coronary artery disease and his symptoms today this is concerning we will switch him to IV nitro drip consulted Dr. Hernandez he recommends observation he will consult discussed Dr. Garzon orders written. Lab Data 04/28/23 03:30 04/28/23 03:30 Radiology Impressions Chest X-Ray 04/28/23 03:22 IMPRESSION: No acute findings. Laboratory Results WBC 7.0 10^3/uL (4.0-10.0) 04/28/23 03:30 RBC 3.81 10^6/uL (4.1-5.3) L 04/28/23 03:30 Hgb 11.2 g/dL (11.7-16.6) L 04/28/23 03:30 Hct 35.4 % (42.0-52.0) L 04/28/23 03:30 MCV 92.9 fl (80-94) 04/28/23 03:30 MCH 29.4 pg (28.0-34.0) 04/28/23 03:30 MCHC 31.6 g/dL (30.0-36.0) 04/28/23 03:30 RDW 16.9 % (12.1-15.1) H 04/28/23 03:30 Plt Count 147 10^3/cmm (130-400) 04/28/23 03:30 MPV 11.3 fL (7.4-10.4) H 04/28/23 03:30 Neut % (Auto) 78.5 % 04/28/23 03:30 Lymph % (Auto) 14.5 % 04/28/23 03:30 [place] % (Auto) 5.3 % 04/28/23 03:30 Eos % (Auto) 1.1 % 04/28/23 03:30 Baso % (Auto) 0.3 % 04/28/23 03:30 Neut # (Auto) 5.46 10^3/uL (1.8-7.7) 04/28/23 03:30 Lymph # (Auto) 1.0 10^3/uL (0.8-4.8) 04/28/23 03:30 [place] # (Auto) 0.4 10^3/uL (0.2-0.9) 04/28/23 03:30 Eos # (Auto) 0.1 10^3/uL (0.0-0.8) 04/28/23 03:30 Baso # (Auto) 0.0 10^3/uL (0.0-0.1) 04/28/23 03:30 Nucleated RBC % (auto) 0 % 04/28/23 03:30 Nucleated RBCs # 0.0 /100WBC 04/28/23 03:30 Sodium 140 mmol/L (136-145) 04/28/23 03:30 Potassium 3.6 mmol/L (3.5-5.1) 04/28/23 03:30 Chloride 105 mmol/L (98-107) 04/28/23 03:30 Carbon Dioxide 25 mmol/L (22-29) 04/28/23 03:30 Anion Gap 13.6 (5-19) 04/28/23 03:30 BUN 11 mg/dL (6-20) 04/28/23 03:30 Creatinine 1.0 mg/dL (0.7-1.2) 04/28/23 03:30 GFR Calculation 81.9 mL/min (90-130) L 04/28/23 03:30 Glucose 108 mg/dL (65-115) 04/28/23 03:30 Estimat Average Glucose 97 04/28/23 03:30 Hemoglobin A1c 5.0 % (4.0-6.0) 04/28/23 03:30 Calculated Osmolality 290 mOsm/kg (285-295) 04/28/23 03:30 Lactic Acid 1.3 mmol/L (0.5-2.2) 04/28/23 03:29 Calcium 8.7 mg/dL (8.5-10.5) 04/28/23 03:30 Total Bilirubin 0.6 mg/dL (0.15-1.2) 04/28/23 03:30 AST 16 U/L (0-40) 04/28/23 03:30 ALT 14 U/L (0-41) 04/28/23 03:30 Alkaline Phosphatase 69 U/L (40-130) 04/28/23 03:30 Troponin T Baseline 43 ng/L (0-15) H 04/28/23 03:30 Troponin T 120 Minute 51.53 ng/L (0-15) H 04/28/23 05:45 Delta Troponin T 8.53 ABS# (0-10) 04/28/23 05:45 NT-Pro-B Natriuret Pep 1543 pg/mL (0-125) H 04/28/23 03:30 NT-Pro-B Natriuret Pep Cancelled 04/28/23 03:30 Total Protein 7.4 g/dL (6.6-8.7) 04/28/23 03:30 Albumin 3.9 g/dL (3.5-5.2) 04/28/23 03:30 Globulin 3.5 g/dL (1.3-4.6) 04/28/23 03:30 Triglycerides 190 mg/dL (0-150) H 04/28/23 03:30 Cholesterol 111 mg/dL (0-200) 04/28/23 03:30 LDL Cholesterol, Calc 58 mg/dL (50-129) 04/28/23 03:30 HDL Cholesterol 15 mg/dL (60-100) L 04/28/23 03:30 LDL/HDL Ratio 3.87 RATIO (0.00-3.22) H 04/28/23 03:30 Cholesterol/HDL Ratio 7.40 mg/dL (1.0-5.00) H 04/28/23 03:30 Lipase 6 U/L (13-60) L 04/28/23 03:30 Procalcitonin 0.06 ng/mL (0-0.5) 04/28/23 03:30 TSH 2.19 uIU/mL (0.27-4.20) 04/28/23 03:30 Discharge Plan Discharge Patient Disposition: Placed in Observation Admit Provider: Berta Garzon Clinical Impression: Arterial fibromuscular dysplasia, Atherosclerosis of coronary artery, Elevated troponin I level Discharge Diet: Cardiac Discharge Activity: Limit activity as instructed Sign Out Sign Out Data: Patient Sign Out occurred on 04/28/23 at 06:20. Patient's care was discussed, and care was transferred from to Pola Abreu DO. Coding Level of Care Code ED Playground Worker for Chg Fwd Documented by User: Pola Abreu DO 04/28/23 09:05 HPI - Chest Pain General: Chief Complaint: ER Hold Stated Complaint: CP Time Seen by Provider: 04/28/23 03:16 PFSH ED PFSH: Medical History Abdominal aortic aneurysm Abnormal nuclear stress test Angina pectoris, unstable Arterial fibromuscular dysplasia Celiac artery stenosis Coronary artery disease Decreased libido Low normal testosterone, 312 in 2021 on testosterone replacement therapy. Dyslipidemia Erectile dysfunction Generalized anxiety disorder High blood pressure Hypertension Major depressive disorder, recurrent, moderate Nephrolithiasis Nicotine dependence, unspecified, uncomplicated Urolithiasis Surgical History H/O heart artery stent Family History Other CAD (coronary artery disease) Denies family history of Diabetes Hyperlipidemia Hypertension Social History Smoking and tobacco status: current every day smoker cigarettes Packs smoked per day: 1 Years cigarettes smoked: 20 Quit status (tobacco): has tried quititng Number of times tried to quit tobacco: 2 Second hand smoke exposure: Yes Smoking risk assessment/counseling performed?: No Alcohol intake: former Substance/Drug Use: never Household members: spouse Marital status: Current occupational status: disabled Course Vital Signs: Vital signs: Vital Signs Temperature 98.3 F 04/28/23 03:17 Pulse Rate 74 04/28/23 14:26 Respiratory Rate 12 04/28/23 14:26 Blood Pressure 151/83 04/28/23 14:26 Pulse Oximetry 95 04/28/23 14:26 Oxygen Delivery Me thod Nasal Cannula 04/28/23 09:41 Oxygen Flow Rate 2 04/28/23 09:41 MDM - Chest Pain Medical Decision Making Care assumed at change of shift. Patient's symptoms have mostly resolved but the second troponin is elevated he has a positive delta of +8. Given his known history of cardiac coronary artery disease and his symptoms today this is concerning we will switch him to IV nitro drip consulted Dr. Hernandez he recommends observation he will consult discussed Dr. Garzon orders written. Medical Records I reviewed the patient's medical records. Lab Data I reviewed the patient's lab results. 04/28/23 03:30 04/28/23 03:30 Radiology Impressions Chest X-Ray 04/28/23 03:22 IMPRESSION: No acute findings. Laboratory Results WBC 7.0 10^3/uL (4.0-10.0) 04/28/23 03:30 RBC 3.81 10^6/uL (4.1-5.3) L 04/28/23 03:30 Hgb 11.2 g/dL (11.7-16.6) L 04/28/23 03:30 Hct 35.4 % (42.0-52.0) L 04/28/23 03:30 MCV 92.9 fl (80-94) 04/28/23 03:30 MCH 29.4 pg (28.0-34.0) 04/28/23 03:30 MCHC 31.6 g/dL (30.0-36.0) 04/28/23 03:30 RDW 16.9 % (12.1-15.1) H 04/28/23 03:30 Plt Count 147 10^3/cmm (130-400) 04/28/23 03:30 MPV 11.3 fL (7.4-10.4) H 04/28/23 03:30 Neut % (Auto) 78.5 % 04/28/23 03:30 Lymph % (Auto) 14.5 % 04/28/23 03:30 [place] % (Auto) 5.3 % 04/28/23 03:30 Eos % (Auto) 1.1 % 04/28/23 03:30 Baso % (Auto) 0.3 % 04/28/23 03:30 Neut # (Auto) 5.46 10^3/uL (1.8-7.7) 04/28/23 03:30 Lymph # (Auto) 1.0 10^3/uL (0.8-4.8) 04/28/23 03:30 [place] # (Auto) 0.4 10^3/uL (0.2-0.9) 04/28/23 03:30 Eos # (Auto) 0.1 10^3/uL (0.0-0.8) 04/28/23 03:30 Baso # (Auto) 0.0 10^3/uL (0.0-0.1) 04/28/23 03:30 Nucleated RBC % (auto) 0 % 04/28/23 03:30 Nucleated RBCs # 0.0 /100WBC 04/28/23 03:30 Sodium 140 mmol/L (136-145) 04/28/23 03:30 Potassium 3.6 mmol/L (3.5-5.1) 04/28/23 03:30 Chloride 105 mmol/L (98-107) 04/28/23 03:30 Carbon Dioxide 25 mmol/L (22-29) 04/28/23 03:30 Anion Gap 13.6 (5-19) 04/28/23 03:30 BUN 11 mg/dL (6-20) 04/28/23 03:30 Creatinine 1.0 mg/dL (0.7-1.2) 04/28/23 03:30 GFR Calculation 81.9 mL/min (90-130) L 04/28/23 03:30 Glucose 108 mg/dL (65-115) 04/28/23 03:30 Estimat Average Glucose 97 04/28/23 03:30 Hemoglobin A1c 5.0 % (4.0-6.0) 04/28/23 03:30 Calculated Osmolality 290 mOsm/kg (285-295) 04/28/23 03:30 Lactic Acid 1.3 mmol/L (0.5-2.2) 04/28/23 03:29 Calcium 8.7 mg/dL (8.5-10.5) 04/28/23 03:30 Total Bilirubin 0.6 mg/dL (0.15-1.2) 04/28/23 03:30 AST 16 U/L (0-40) 04/28/23 03:30 ALT 14 U/L (0-41) 04/28/23 03:30 Alkaline Phosphatase 69 U/L (40-130) 04/28/23 03:30 Troponin T Baseline 43 ng/L (0-15) H 04/28/23 03:30 Troponin T 120 Minute 51.53 ng/L (0-15) H 04/28/23 05:45 Delta Troponin T 8.53 ABS# (0-10) 04/28/23 05:45 NT-Pro-B Natriuret Pep 1543 pg/mL (0-125) H 04/28/23 03:30 NT-Pro-B Natriuret Pep Cancelled 04/28/23 03:30 Total Protein 7.4 g/dL (6.6-8.7) 04/28/23 03:30 Albumin 3.9 g/dL (3.5-5.2) 04/28/23 03:30 Globulin 3.5 g/dL (1.3-4.6) 04/28/23 03:30 Triglycerides 190 mg/dL (0-150) H 04/28/23 03:30 Cholesterol 111 mg/dL (0-200) 04/28/23 03:30 LDL Cholesterol, Calc 58 mg/dL (50-129) 04/28/23 03:30 HDL Cholesterol 15 mg/dL (60-100) L 04/28/23 03:30 LDL/HDL Ratio 3.87 RATIO (0.00-3.22) H 04/28/23 03:30 Cholesterol/HDL Ratio 7.40 mg/dL (1.0-5.00) H 04/28/23 03:30 Lipase 6 U/L (13-60) L 04/28/23 03:30 Procalcitonin 0.06 ng/mL (0-0.5) 04/28/23 03:30 TSH 2.19 uIU/mL (0.27-4.20) 04/28/23 03:30 Discharge Plan Discharge Patient Disposition: Placed in Observation Admit Provider: Berta Garzon Clinical Impression: Arterial fibromuscular dysplasia, Atherosclerosis of coronary artery, Elevated troponin I level Discharge Diet: Cardiac Discharge Activity: Limit activity as instructed Sign Out Sign Out Data: Patient Sign Out occurred on 04/28/23 at 06:20. Patient's care was discussed, and care was transferred from to Pola Abreu DO. Coding Level of Care Code ED Playground Worker for Kristy Phelan
--- NOTE | 2023-04-28 03:22 | ECG_ITS ---
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 Measurements Intervals [place] Rate: 95 P: 50 VT: 158 QRS: 58 QRSD: 99 T: 63 QT: 371 QTc: 467 Interpretive Statements SINUS RHYTHM POSSIBLE LEFT ATRIAL ENLARGEMENT [-0.1mV P-WAVE IN V1/V2] POSSIBLE INFERIOR MYOCARDIAL INFARCTION , PROBABLY OLD [30 ms Q WAVE IN II/aVF] INTERPRETATION BASED ON A DEFAULT AGE OF 40 YEARS Compared to ECG 08/30/2022 23:00:40 No significant changes Electronically Signed On 04-28-2023 7:57:39 CDT by Franc Hadley M.D. [id number] f
--- NOTE | 2023-04-28 03:22 | XRR_ITS ---
PROCEDURE INFORMATION: Exam: XR Chest Exam date and time: 04/28/2023 3:27 AM Age: 42 years old Clinical indication: Pain; Chest pressure; Additional info: Cp TECHNIQUE: Imaging protocol: Radiologic exam of the chest. Views: 1 view. COMPARISON: CR XR chest 1V portable [id number] 08/30/2022 2:59 PM FINDINGS: Lungs: Unremarkable. No consolidation. Pleural spaces: Unremarkable. No pleural effusion. No pneumothorax. Heart/Mediastinum: Unremarkable. No cardiomegaly. Bones/joints: Unremarkable. XR/XR chest 1V portable [id number] IMPRESSION: No acute findings.
[2023-04-28 03:39] LABS: Basophils % 0.3 %; Eosinophils # 0.1 10^3/uL (0.0-0.8); Eosinophils % 1.1 %; Hematocrit 35.4 % (42.0-52.0); Hemoglobin 11.2 g/dL (11.7-16.6); Lymphocytes % 14.5 %; Mean Corpuscular HGB Conc 31.6 g/dL (30.0-36.0); Mean Corpuscular Hemoglobin 29.4 pg (28.0-34.0); Mean Corpuscular Volume 92.9 fl (80-94); Mean Platelet Volume 11.3 fL (7.4-10.4); Monocytes # 0.4 10^3/uL (0.2-0.9); Monocytes % 5.3 %; Neutrophils # 5.46 10^3/uL (1.8-7.7); Neutrophils % 78.5 %; Nucleated Red Blood Cells % 0 %; Platelet Count 147 10^3/cmm (130-400); Red Blood Count 3.81 10^6/uL (4.1-5.3); Red Cell Distribution Width 16.9 % (12.1-15.1)
[2023-04-28 04:04] LABS: Troponin(5th) Baseline 43 ng/L (0-15)
[2023-04-28 04:13] LABS: Alanine Aminotransferase 14 U/L (0-41); Albumin Level 3.9 g/dL (3.5-5.2); Alkaline Phosphatase 69 U/L (40-130); Anion Gap 13.6 (5-19); Aspartate Amino Transferase 16 U/L (0-40); Blood Urea Nitrogen 11 mg/dL (6-20); Calcium 8.7 mg/dL (8.5-10.5); Carbon Dioxide 25 mmol/L (22-29); Chloride 105 mmol/L (98-107); Globulin 3.5 g/dL (1.3-4.6); Glomerular Filtration Rate 81.9 mL/min (90-130); Glucose 108 mg/dL (65-115); Lipase 6 U/L (13-60); NT Pro B Type Natriuretic Pept 1543 pg/mL (0-125); Osmolality Calculated 290 mOsm/kg (285-295); Potassium 3.6 mmol/L (3.5-5.1); Sodium 140 mmol/L (136-145); Total Bilirubin 0.6 mg/dL (0.15-1.2); Total Protein 7.4 g/dL (6.6-8.7)
[2023-04-28 05:45] VITALS: BP 130/71; PULSE 76; RESP 16; O2SAT 94
--- NOTE | 2023-04-28 05:49 | ECG_ITS ---
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 Measurements Intervals [place] Rate: 79 P: 51 IL: 143 QRS: 61 QRSD: 96 T: 73 QT: 418 QTc: 482 Interpretive Statements SINUS RHYTHM POSSIBLE LEFT ATRIAL ENLARGEMENT [-0.1mV P-WAVE IN V1/V2] POSSIBLE LEFT VENTRICULAR HYPERTROPHY [VOLTAGE CRITERIA PLUS LAE OR QRS WIDENING] PROBABLE INFERIOR MYOCARDIAL INFARCTION , PROBABLY OLD [35 ms Q WAVE IN II/aVF] Compared to ECG 04/28/2023 03:22:16 No significant changes Electronically Signed On 04-28-2023 7:59:04 CDT by Franc Hadley M.D. [id number]
[2023-04-28 06:14] LABS: Troponin 5 2HR 51.53 ng/L (0-15)
[2023-04-28 06:15] LABS: Troponin 5 2HR Delta 8.53 ABS# (0-10)
[2023-04-28] MEDS: nitroglycerin drip 50 MG/250 ML PREMIX IV (06:35)
--- NOTE | 2023-04-28 06:36 | USCV_ITS ---
Tomas Pineda Age: 42 Gender: M : 1980 Exam Date: 04/28/2023 07:26 Ordering Phys: Berta Garzon MD Technologist: RUSSELL [place] [facility] [place] CHEST PAIN BP: 137 / 71 HR: 73 Rhythm: Sinus Technical Quality: Adequate MEASUREMENTS (Male / Female) Normal Values 2D ECHO LVOT Diameter 2.0 cm LV Ejection Fraction MOD 2C 63.7 % LV Ejection Fraction 2C AL 62.8 % LA Diameter 3.8 cm LA Width 3.9 cm LA Height 4.3 cm RA Width 2.9 cm RA Height 4.4 cm Aorta at Sinotubular Diameter 2.4 cm IVC Diameter 1.8 cm M-MODE Aortic Annulus Diameter 2.9 cm LA Ao Ratio MM 1.3 MV E Point Septal Separation 0.8 cm DOPPLER AV Peak Velocity 196.0 cm/s LVOT Peak Velocity 98.0 cm/s AV Area Cont Eq vti 1.6 cm squared AV Area Cont Eq pk 1.6 cm squared MV Peak Velocity 175.0 cm/s MV Area PHT 3.9 cm squared Mitral E to A Ratio 2.2 MV E' Velocity 74.5 cm/s Mitral E to MV E' Ratio 15.7 Mitral E to LV E' Lateral Ratio 15.4 Mitral E to LV E' Septal Ratio 16.1 TR Peak Velocity 226.5 cm/s TR Peak Gradient 20.5 mmHg TR Mean Velocity 189.7 cm/s TR Mean Gradient 15.2 mmHg TR Velocity Time Integral 75.9 cm TV Peak E Velocity 67.0 cm/s Right Atrial Pressure 3.0 mmHg Pulmonary Artery Systolic Pressu 23.5 mmHg PV Peak Velocity 119.0 cm/s RV Acceleration Time 0.2 s RV Ejection Time 0.3 s RV AcT/ET 0.5 FINDINGS Left Ventricle Left ventricle is normal size. LV systolic function is normal with EF of 55 to 60%. No regional wall motion abnormalities are seen. Right Ventricle Normal in size and function Right Atrium Normal in size Left Atrium Normal in size Mitral Valve Structurally normal mitral valve. Moderate mitral regurgitation. Aortic Valve Structurally normal aortic valve. No significant stenosis or regurgitation. Tricuspid Valve Mild tricuspid regurgitation. Pulmonary artery systolic pressure is normal Pulmonic Valve Not well visualized Pericardium Normal Aorta Normal in size IVC Appears to be normal CONCLUSIONS LV systolic function is normal with EF of 55-60% Moderate mitral regurgitation Mlild tricuspid regurgitation Compared to prior echocardiogram from 08/30/2022, no significant changes are seen. Franc Hadley MD (Electronically Signed) Final Date: 28 April 2023 14:05 S
[2023-04-28] MEDS: sodium chloride 0.9% 1,000 ML 75 ML IV (07:03)
--- NOTE | 2023-04-28 07:06 | PM.CONSULT ---
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 According to patient his chest pain resolved with 2 nitroglycerin. His initial troponin was 41 that has trended to 58 at 6 hours. No more chest Pain episodes.EKG showed sinus rhythm with no significant ischemic changes. Review of Systems Const: Denies: fever(s), chills or night sweats Eyes: Denies: change in vision ENMT: Denies: odynophagia or nasal congestion Card: Reports: chest pain and dyspnea on exertion; Denies: palpitations, irregular heart rhythm or swelling of feet/ankles Resp: Denies: productive cough or non-productive cough GI: Denies: nausea, vomiting or heartburn : Denies: difficulty urinating Musc: Reports: neck pain and back pain Skin/Breast: Denies: rash or pruritus Neuro: Denies: headache(s) Deandre/Lymph: Denies: easy bruising or easy bleeding Medications/Allergies Home Medications Medication Instructions Recorded Confirmed Last Taken Type simvastatin 40 mg tablet 40 mg PO DAILY #90 tabs 09/01/20 04/28/23 08/29/22 Rx clopidogrel 75 mg tablet (Plavix) 75 mg PO DAILY #7 tabs 08/20/21 04/28/23 08/29/22 Rx buspirone 10 mg tablet 10 mg PO QID PRN Anxiety 08/30/22 04/28/23 08/30/22 History fenofibrate 54 mg tablet 54 mg PO DAILY 08/30/22 04/28/23 08/29/22 History trazodone 100 mg tablet 100 mg PO BEDTIME 08/30/22 04/28/23 08/29/22 History amlodipine 10 mg tablet 10 mg PO DAILY 30 days #30 tabs 09/03/22 04/28/23 Unknown Rx metoprolol succinate 50 mg 50 mg PO DAILY #90 tabs 12/07/22 04/28/23 Unknown Rx tablet,extended release 24 hr aspirin 81 mg tablet,delayed 81 mg PO DAILY #30 tabs 04/28/23 Unknown Rx release gabapentin 800 mg tablet 800 mg PO TID 04/28/23 04/28/23 Unknown History hydrocodone 10 mg-acetaminophen 1 tab PO Q4H PRN Pain 04/28/23 04/28/23 Unknown History 325 mg tablet nitroglycerin 0.4 mg sublingual 0.4 mg sublingual Q5M PRN Chest 04/28/23 04/28/23 Unknown History tablet (Nitrostat) Pain pantoprazole 40 mg tablet,delayed 40 mg PO BEDTIME 04/28/23 04/28/23 Unknown History release ranolazine 500 mg tablet,extended 1,000 mg PO BID@0900,2100 #120 tabs 04/28/23 Unknown Rx release,12 hr Allergies Allergy/AdvReac Type Severity Reaction Status Date / Time naproxen AdvReac Intermediate Makes sick Verified 12/07/22 10:28 to stomach Current Medications Generic Name Dose Route Start Last Admin Trade Name Faye PRN Reason Stop Dose Admin Nitroglycerin/Dextrose 50 mg in 250 mls @ 0 mls/hr 04/28/23 06:30 04/28/23 06:35 Nitroglycerin Drip IV 5 mcg/min .Q0M WAYLON 1.5 mls/hr Administration Protocol Per Protocol Sodium Chloride 1,000 mls @ 75 mls/hr 04/28/23 06:45 04/28/23 07:03 Sodium Chloride 0.9% IV 75 mls/hr .[id number] WAYLON Administration PFSH Acute PFSH: Medical History (Updated 04/29/23 @ 00:01 by ELLEN Manning) Abdominal aortic aneurysm Abnormal nuclear stress test Angina pectoris, unstable Arterial fibromuscular dysplasia Celiac artery stenosis Coronary artery disease Decreased libido Low normal testosterone, 312 in 2021 on testosterone replacement therapy. Dyslipidemia Erectile dysfunction Generalized anxiety disorder High blood pressure Hypertension Major depressive disorder, recurrent, moderate Nephrolithiasis Nicotine dependence, unspecified, uncomplicated Urolithiasis Surgical History H/O heart artery stent Family History Other CAD (coronary artery disease) Denies family history of Diabetes Hyperlipidemia Hypertension Social History Smoking and tobacco status: current every day smoker cigarettes Packs smoked per day: 1 Years cigarettes smoked: 20 Quit status (tobacco): has tried quititng Number of times tried to quit tobacco: 2 Second hand smoke exposure: Yes Smoking risk assessment/counseling performed?: No Alcohol intake: former Substance/Drug Use: never Household members: spouse Marital status: Current occupational status: disabled Vitals/I&O/Wt Last Vital Signs Temp 98.3 F 04/28/23 03:17 Pulse 76 04/28/23 05:45 Resp 16 04/28/23 05:45 BP 130/71 04/28/23 05:45 Pulse Ox 94 04/28/23 05:45 O2 Del Method Nasal Cannula 04/28/23 05:45 O2 Flow Rate 2 04/28/23 05:45 Weight last 48 hrs Weight 210 lb Physical Exam Narrative: GENERAL: Patient is alert, awake and oriented x3. [] NECK: No jugular vein distension. [] HEENT: No cyanosis. No icterus. No pallor. [] HEART: Regular S1 and S2. No murmur, rub or gallop. [] LUNGS: Clear to auscultate bilaterally. [] CENTRAL NERVOUS SYSTEM: Grossly nonfocal. [] EXTREMITIES: Lower extremities with 1+ edema bilaterally. Pulses palpable in the lower extremities, both dorsalis pedis and posterior tibial. [] Data 04/28/23 03:30 04/28/23 03:30 A&P Assessment and plan (1) Chest pain: (2) Arterial fibromuscular dysplasia: (3) Elevated troponin I level: (4) Hypertension: (5) Dyslipidemia: Plan Patient has presented with chest pain symptoms. Troponins are mildly elevated with minimal uptrend. I discussed all options with the patient including coronary angiogram Vs stress test. He does not want to have cardiac catheterization at this time. He is agreeable to get stress testing done however does not want to stay in hospital for that. He is chest pain-free currently. EKG is not showing any acute ischemic changes. Echo shows normal LV systolic function. He wants to go home and get stress test as outpatient. He understands the risk of not undergoing further ischemic evaluation as inpatient.We will set up stress test as an outpatient.ER warning symptoms discussed with the patient. Uptirate Ranexa Thankyou for involving us with care of this patient. Please call with questions Consult Attestations Medical Necessity Statement: Care expected to cross 2 midnights. Coding Level of Care Code Acute Code for Chg Fwd Diagnoses Chest pain R07.9 Arterial fibromuscular dysplasia I77.3 Elevated troponin I level R77.8 Hypertension I10 Dyslipidemia E78.5
[2023-04-28] MEDS: enoxaparin 100 mg/mL Syringe 90 MG SUBCUT (07:47)
[2023-04-28 07:48] VITALS: BP 121/63; PULSE 78; RESP 17; O2SAT 94
[2023-04-28 08:52] VITALS: PULSE 85; O2SAT 93
[2023-04-28] MEDS: aspirin 81 mg EC Tablet PO (09:01)
[2023-04-28] MEDS: clopidogrel 75 mg Tablet PO (09:02)
[2023-04-28] MEDS: atorvastatin 40 mg Tablet 20 MG PO (09:02)
[2023-04-28] MEDS: metoprolol succinate ER (24 HR) 50 mg Tablet PO (09:02)
[2023-04-28] MEDS: pantoprazole DR 40 mg Tablet PO (09:02)
[2023-04-28 09:20] LABS: Lactic Sepsis W/Reflex 1.3 mmol/L (0.5-2.2)
[2023-04-28 09:31] LABS: Procalcitonin 0.06 ng/mL (0-0.5); Thyroid Stimulating Hormone 2.19 uIU/mL (0.27-4.20)
[2023-04-28] MEDS: ranolazine (12HR) 500 mg Tablet PO (09:40)
[2023-04-28 09:41] VITALS: BP 151/83; PULSE 74; RESP 12; O2SAT 95
[2023-04-28 09:44] LABS: Cholesterol 111 mg/dL (0-200); HDL Cholesterol 15 mg/dL (60-100); LDL Cholesterol Calculated 58 mg/dL (50-129); LDL HDL Ratio 3.87 RATIO (0.00-3.22); Triglycerides 190 mg/dL (0-150)
--- NOTE | 2023-04-28 10:23 | PM.HP ---
Providers/Chief Complaint Admitting Physician: Eleazar Rodriguez MD Primary Care Provider: John Hayward NP Chief Complaint: CP History of Present Illness Tomas Pineda is a 42 year old male presenting to the emergency department with a complaints of chest discomfort. He reports about an hour prior to arrival, at rest, he developed chest discomfort. He reports it was pressure/burning sensation. He ended up taking 2 nitroglycerin at home and reports he was pain-free by the time he came to the emergency department. Nitroglycerin drip was started after nitroglycerin paste. He continues to smoke. He would like to go home today if possible. Review of Systems General: Reports: 10 or more systems reviewed and unremarkable except in HPI and below Card: Reports: chest pain Resp: Denies: productive cough or non-productive cough GI: Denies: heartburn, hematochezia or melena Medications/Allergies Home Medications Medication Instructions Recorded Confirmed Last Taken Type simvastatin 40 mg tablet 40 mg PO DAILY #90 tabs 09/01/20 04/28/23 08/29/22 Rx clopidogrel 75 mg tablet (Plavix) 75 mg PO DAILY #7 tabs 08/20/21 04/28/23 08/29/22 Rx buspirone 10 mg tablet 10 mg PO QID PRN Anxiety 08/30/22 04/28/23 08/30/22 History fenofibrate 54 mg tablet 54 mg PO DAILY 08/30/22 04/28/23 08/29/22 History testosterone cypionate 200 mg/mL 200 mg IM Q7D 08/30/22 04/28/23 2 Weeks Ago History intramuscular oil ~04/14/23 trazodone 100 mg tablet 100 mg PO BEDTIME 08/30/22 04/28/23 08/29/22 History amlodipine 10 mg tablet 10 mg PO DAILY 30 days #30 tabs 09/03/22 04/28/23 Unknown Rx ranolazine 500 mg tablet,extended 500 mg PO BID 30 days #60 tabs 09/03/22 04/28/23 Unknown Rx release,12 hr metoprolol succinate 50 mg 50 mg PO DAILY #90 tabs 12/07/22 04/28/23 Unknown Rx tablet,extended release 24 hr gabapentin 800 mg tablet 800 mg PO TID 04/28/23 04/28/23 Unknown History hydrocodone 10 mg-acetaminophen 1 tab PO Q4H PRN Pain 04/28/23 04/28/23 Unknown History 325 mg tablet nitroglycerin 0.4 mg sublingual 0.4 mg sublingual Q5M PRN Chest 04/28/23 04/28/23 Unknown History tablet (Nitrostat) Pain pantoprazole 40 mg tablet,delayed 40 mg PO BEDTIME 04/28/23 04/28/23 Unknown History release sildenafil 50 mg tablet See Rx Instructions .Route .COMPLEX 04/28/23 04/28/23 Unknown History Allergies Allergy/AdvReac Type Severity Reaction Status Date / Time naproxen AdvReac Intermediate Makes sick Verified 12/07/22 10:28 to stomach PFSH Acute PFSH: Medical History (Updated 04/28/23 @ 10:30 by Eleazar Rodriguez MD) Abdominal aortic aneurysm Abnormal nuclear stress test Angina pectoris, unstable Arterial fibromuscular dysplasia Celiac artery stenosis Coronary artery disease Decreased libido Low normal testosterone, 312 in 2021 on testosterone replacement therapy. Dyslipidemia Erectile dysfunction Generalized anxiety disorder High blood pressure Hypertension Major depressive disorder, recurrent, moderate Nephrolithiasis Nicotine dependence, unspecified, uncomplicated Urolithiasis Surgical History H/O heart artery stent Family History Other CAD (coronary artery disease) Denies family history of Diabetes Hyperlipidemia Hypertension Social History Smoking and tobacco status: current every day smoker cigarettes Packs smoked per day: 1 Years cigarettes smoked: 20 Quit status (tobacco): has tried quititng Number of times tried to quit tobacco: 2 Second hand smoke exposure: Yes Smoking risk assessment/counseling performed?: No Alcohol intake: former Substance/Drug Use: never Household members: spouse Marital status: Current occupational status: disabled Vitals/I&O/Wt Last Vital Signs Temp 98.3 F 04/28/23 03:17 Pulse 74 04/28/23 09:41 Resp 12 04/28/23 09:41 BP 151/83 04/28/23 09:41 Pulse Ox 95 04/28/23 09:41 O2 Del Method Nasal Cannula 04/28/23 09:41 O2 Flow Rate 2 04/28/23 09:41 04/27/23 04/28/23 04/28/23 22:59 06:59 14:59 Intake Total 150 / 150 Balance 150 / 150 Weight last 48 hrs Weight 95.254 kg Physical Exam Narrative: General exam is white male, reporting no chest discomfort, in no distress. HEENT: Atraumatic and normocephalic. Oropharynx clear Neck is supple no lymphadenopathy thyromegaly Cardiovascular regular rate and rhythm, no murmur Lungs clear no wheezing or crackles Abdomen is soft with positive bowel sounds. No obvious organomegaly exams deferred Extremities no cyanosis clubbing edema, cap refill brisk Skin no rash Neuro no obvious focal deficits. Data 04/28/23 03:30 04/28/23 03:30 Other Labs: Initial troponin 43 with repeat of 51. 6 hours pending. BNP elevated at 1543 TSH normal LFTs normal Calcium normal Chest x-ray which I reviewed demonstrates no infiltrate Most recent angiogram in August 2022 demonstrated a total occlusion of his LAD, and RCA and circumflex with severe fibromuscular dysplasia EKG demonstrates normal sinus rhythm, normal axis, Q waves inferiorly, left atrial enlargement, no acute changes. Previous echo in August demonstrated an EF of 60%, 3/4 diastolic dysfunction, mild pulmonary hypertension A&P Assessment and plan (1) Chest pain: Patient has known coronary disease Fairly recent angiogram demonstrated significant disease, and it was recommended to medically treat Troponin slightly elevated, awaiting 6-hour. Doubt non-ST elevation myocardial infarction. If troponin improving, consider discontinuation of nitroglycerin drip He is chest pain-free currently, and wanting to go home soon as possible. He is willing to do an outpatient nuclear stress test. Echocardiogram has been ordered and we are awaiting the results Discontinue his IV fluids as there is concern for slight fluid overload (2) Elevated troponin I level: This may indicate heart strain, slight amount of fluid overload. Lasix 20 mg IV x1 Last echocardiogram demonstrated 3/4 diastolic dysfunction. (3) Arterial fibromuscular dysplasia: Complicating his vascular disease. Plan Tobacco dependency. Discussed with him cessation History of sleep apnea, noncompliant with CPAP. Discussed with him potentially trying this again. Multiple other medical problems as outlined in his past medical history Full code He was given Lovenox x1 for anticoagulation until further course can be delineated. Attestations Medical Necessity Statement*: Will need less than 2 midnight stay for evaluation and treatment of chest discomfort. Diagnoses Chest pain R07.9 Elevated troponin I level R77.8 Arterial fibromuscular dysplasia I77.3 Time Spent (min) 42
[2023-04-28 10:32] LABS: Estmated Average Glucose 97
[2023-04-28 10:33] LABS: Troponin 5 6HR 58.64 ng/L (0-15)
[2023-04-28 10:41] LABS: Troponin 5 6HR Delta 15.64 ng/L (0-12)
[2023-04-28] MEDS: FUROsemide 10 mg/mL SDV 2mL 20 MG IVP (11:15)
--- NOTE | 2023-04-28 11:21 | PC.NURSE ---
PER PROVIDER, DISCONTINUE O2 NC AND NITRO DRIP.
--- NOTE | 2023-04-28 12:20 | PM.DCS ---
Discharge Providers Date of Admission: 04/28/23 06:38 Date of Discharge: April 28, 2023 Attending Provider at Admission: Berta Garzon MD Attending Provider at Discharge: Berta Garzon MD Primary Care Provider: John Hayward NP Diagnoses at Discharge Discharge Diagnosis (1) Chest pain: Status: Acute (2) Elevated troponin I level: Status: Acute (3) Arterial fibromuscular dysplasia: Status: Acute Reason for Visit Reason for Visit: CP Hospital Course Hospital Course Tomas presented to the emergency department with complaints of chest discomfort. He reports he took 2 nitroglycerin at home, and it was relieved by the time of arrival. His troponin was elevated and increased slightly during his ER course. However, he had no diagnostic EKG changes and had no recurrent pain. He was on a nitroglycerin drip at 1 point secondary to his elevated troponins, but again had no pain. Cardiology was consulted, his last angiogram reviewed which demonstrated fibromuscular dysplasia in the RCA and circumflex and a total occlusion of his LAD. I discussed this case with cardiology, and had multiple detailed discussions with the patient. I discontinued his nitroglycerin drip and he had no recurrent pain. His echocardiogram demonstrated preserved EF and no change from previous. The patient himself requested to leave the emergency department today as he had no recurrent pain and was amenable to follow-up as an outpatient with a nuclear stress test. At this point, I believe it is reasonable to discharge the patient, as the other option would be to let him go AGAINST MEDICAL ADVICE. Risks and benefits were discussed with the patient. His ranolazine was increased. His testosterone and sildenafil were discontinued. He was told to return for any discomfort. He was given an opportunity ask questions, and agreed with the plan. was present for discussion. Physical Exam Narrative: See exam done earlier today. Discharge Data Studies Completed and Pending Completed Studies During Hospitalization Category Date Time Status XR chest 1V portable [id number] Stat Exams 04/28/23 03:22 Completed Pending at discharge Category Date Time Status Complete Blood Count w/Auto AM LABS Lab 04/29/23 04:00 Ordered Comprehensive Metabolic Panel AM LABS Lab 04/29/23 04:00 Ordered Magnesium AM LABS Lab 04/29/23 04:00 Ordered CV. echo complete* [id number] Urgent Ultrasound 04/28/23 06:36 Taken Radiology Impressions Chest X-Ray 04/28/23 03:22 IMPRESSION: No acute findings. Laboratory Results WBC 7.0 10^3/uL (4.0-10.0) 04/28/23 03:30 RBC 3.81 10^6/uL (4.1-5.3) L 04/28/23 03:30 Hgb 11.2 g/dL (11.7-16.6) L 04/28/23 03:30 Hct 35.4 % (42.0-52.0) L 04/28/23 03:30 MCV 92.9 fl (80-94) 04/28/23 03:30 MCH 29.4 pg (28.0-34.0) 04/28/23 03:30 MCHC 31.6 g/dL (30.0-36.0) 04/28/23 03:30 RDW 16.9 % (12.1-15.1) H 04/28/23 03:30 Plt Count 147 10^3/cmm (130-400) 04/28/23 03:30 MPV 11.3 fL (7.4-10.4) H 04/28/23 03:30 Neut % (Auto) 78.5 % 04/28/23 03:30 Lymph % (Auto) 14.5 % 04/28/23 03:30 Greene % (Auto) 5.3 % 04/28/23 03:30 Eos % (Auto) 1.1 % 04/28/23 03:30 Baso % (Auto) 0.3 % 04/28/23 03:30 Neut # (Auto) 5.46 10^3/uL (1.8-7.7) 04/28/23 03:30 Lymph # (Auto) 1.0 10^3/uL (0.8-4.8) 04/28/23 03:30 Greene # (Auto) 0.4 10^3/uL (0.2-0.9) 04/28/23 03:30 Eos # (Auto) 0.1 10^3/uL (0.0-0.8) 04/28/23 03:30 Baso # (Auto) 0.0 10^3/uL (0.0-0.1) 04/28/23 03:30 Nucleated RBC % (auto) 0 % 04/28/23 03:30 Nucleated RBCs # 0.0 /100WBC 04/28/23 03:30 Sodium 140 mmol/L (136-145) 04/28/23 03:30 Potassium 3.6 mmol/L (3.5-5.1) 04/28/23 03:30 Chloride 105 mmol/L (98-107) 04/28/23 03:30 Carbon Dioxide 25 mmol/L (22-29) 04/28/23 03:30 Anion Gap 13.6 (5-19) 04/28/23 03:30 BUN 11 mg/dL (6-20) 04/28/23 03:30 Creatinine 1.0 mg/dL (0.7-1.2) 04/28/23 03:30 GFR Calculation 81.9 mL/min (90-130) L 04/28/23 03:30 Glucose 108 mg/dL (65-115) 04/28/23 03:30 Estimat Average Glucose 97 04/28/23 03:30 Hemoglobin A1c 5.0 % (4.0-6.0) 04/28/23 03:30 Calculated Osmolality 290 mOsm/kg (285-295) 04/28/23 03:30 Lactic Acid 1.3 mmol/L (0.5-2.2) 04/28/23 03:29 Calcium 8.7 mg/dL (8.5-10.5) 04/28/23 03:30 Total Bilirubin 0.6 mg/dL (0.15-1.2) 04/28/23 03:30 AST 16 U/L (0-40) 04/28/23 03:30 ALT 14 U/L (0-41) 04/28/23 03:30 Alkaline Phosphatase 69 U/L (40-130) 04/28/23 03:30 Troponin T Baseline 43 ng/L (0-15) H 04/28/23 03:30 Troponin T 120 Minute 51.53 ng/L (0-15) H 04/28/23 05:45 Delta Troponin T 8.53 ABS# (0-10) 04/28/23 05:45 Troponin T Hi Sens 6Hr 58.64 ng/L (0-15) H 04/28/23 09:48 Troponin T Hi Sens 6Hr Delta 15.64 ng/L (0-12) H* 04/28/23 09:48 NT-Pro-B Natriuret Pep 1543 pg/mL (0-125) H 04/28/23 03:30 NT-Pro-B Natriuret Pep Cancelled 04/28/23 03:30 Total Protein 7.4 g/dL (6.6-8.7) 04/28/23 03:30 Albumin 3.9 g/dL (3.5-5.2) 04/28/23 03:30 Globulin 3.5 g/dL (1.3-4.6) 04/28/23 03:30 Triglycerides 190 mg/dL (0-150) H 04/28/23 03:30 Cholesterol 111 mg/dL (0-200) 04/28/23 03:30 LDL Cholesterol, Calc 58 mg/dL (50-129) 04/28/23 03:30 HDL Cholesterol 15 mg/dL (60-100) L 04/28/23 03:30 LDL/HDL Ratio 3.87 RATIO (0.00-3.22) H 04/28/23 03:30 Cholesterol/HDL Ratio 7.40 mg/dL (1.0-5.00) H 04/28/23 03:30 Lipase 6 U/L (13-60) L 04/28/23 03:30 Procalcitonin 0.06 ng/mL (0-0.5) 04/28/23 03:30 TSH 2.19 uIU/mL (0.27-4.20) 04/28/23 03:30 Vitals Last Vital Signs Temp 98.3 F 04/28/23 03:17 Pulse 74 04/28/23 09:41 Resp 12 04/28/23 09:41 BP 151/83 04/28/23 09:41 Pulse Ox 95 04/28/23 09:41 O2 Del Method Nasal Cannula 04/28/23 09:41 O2 Flow Rate 2 04/28/23 09:41 Discharge Plan Discharge Patient Disposition: Home Condition: Stable Prescriptions: New ranolazine 500 mg Tablet Extended Release 12 Hr 1,000 mg PO BID@0900,2100 Qty: 120 0RF aspirin 81 mg Tablet,Delayed Release (Dr/Ec) 81 mg PO DAILY Qty: 30 0RF Continued metoprolol succinate 50 mg tablet extended release 24 hr 50 mg PO DAILY Qty: 90 3RF simvastatin 40 mg tablet 40 mg PO DAILY Qty: 90 3RF clopidogrel [Plavix] 75 mg tablet 75 mg PO DAILY Qty: 7 0RF Rx Instructions: Patient needs to be seen for further refills trazodone 100 mg tablet 100 mg PO BEDTIME fenofibrate 54 mg tablet 54 mg PO DAILY buspirone 10 mg tablet 10 mg PO QID PRN (Reason: Anxiety) amlodipine 10 mg Tablet 10 mg PO DAILY 30 Days Qty: 30 1RF hydrocodone-acetaminophen 10-325 mg tablet 1 tab PO Q4H PRN (Reason: Pain) gabapentin 800 mg tablet 800 mg PO TID pantoprazole 40 mg tablet,delayed release (DR/EC) 40 mg PO BEDTIME Nitrostat 0.4 mg Tablet, Sublingual 0.4 mg SUBLINGUAL Q5M PRN (Reason: Chest Pain) Rx Instructions: do not exceed 3 doses per episode Discontinued testosterone cypionate 200 mg/mL oil 200 mg IM Q7D Rx Instructions: ON MON ranolazine 500 mg Tablet Extended Release 12 Hr 500 mg PO BID 30 Days Qty: 60 1RF sildenafil 50 mg tablet See Rx Instructions .ROUTE .COMPLEX Rx Instructions: TAKE ONE TABLET BY MOUTH 30 MINUTES PRIOR TO SEXUAL ACTIVITY Discharge Orders: Discharge Order (Routine); Ordered 04/28/23 Ordered By: Eleazar Rodriguez Other Ambulatory Orders: Sestamibi Stress Test Request (Routine) Timeframe: 1 Week Facility: [facility] - Location: [facility] Ordered By: Eleazar Rodriguez Referrals: John Hayward NP [Primary Care Provider] - 4-7 days Melody Parkinson FNP [Nurse Practitioner] - 7-10 days (follow up for chest pain, elevated trop) Discharge Diet: Cardiac Discharge Activity: Limit activity as instructed Patient Instructions: Opioid Safety Activity Restrictions/Additional Instructions: Take all medicine as prescribed Discontinue testosterone, and sildenafil until discussion with cardiology Follow-up with cardiology in the next week Follow-up with your primary care provider 3 to 5 days Increase ranolazine Return for any recurrent discomfort Stop smoking Discharge Attestations Time Spent in Discharge Care*: greater than 30 min Quality Metrics Clinical Quality Measures [ No reported AMI, CVA or VTE this stay] Coding Level of Care Code 71906 Total time (in minutes) for Discharge: 34 Diagnoses Chest pain R07.9 Elevated troponin I level R77.8 Arterial fibromuscular dysplasia I77.3
--- NOTE | 2023-04-28 13:05 | PC.NURSE ---
ASSUMED CARE OF PT AT 1300.
[2023-04-28 14:26] VITALS: BP 151/83; PULSE 74; RESP 12; O2SAT 95
== END 2023-04-28 14:27 | disposition home or self-care (01) ==
LOC: ER 06:48 → ER IP 09:04
PROVIDERS: Emergency Medicine; Admitting Provider Internal Medicine; Emergency Provider Family Medicine; PCP Nurse Practitioner Family; Visit Provider Internal Medicine
DX: R07.9 Chest pain, unspecified (principal); I71.40 Abdominal aortic aneurysm, without rupture, unspecified; I25.10 Atherosclerotic heart disease of native coronary artery without angina pectoris; Z95.5 Presence of coronary angioplasty implant and graft; E78.5 Hyperlipidemia, unspecified; F41.1 Generalized anxiety disorder; I10 Essential (primary) hypertension; F33.9 Major depressive disorder, recurrent, unspecified; F17.210 Nicotine dependence, cigarettes, uncomplicated; I77.3 Arterial fibromuscular dysplasia; R77.8 Other specified abnormalities of plasma proteins
CPT/HCPCS: 71045; 80053; 80061; 83036; 83605; 83690; 83880; 84145; 84443; 84484; 85025; 93005; 93306; 96365; 96366; 96372; 96375; 99285; G0378; J1650; J1940; J3490; J7030

== ENCOUNTER → 2023-05-22 12:45 | Outpatient (BNVA) | payer MEDICARE, SELFPAY | PROVIDERS: PCP Nurse Practitioner Family; Visit Provider Nurse Practitioner Family | DX: I25.10 Atherosclerotic heart disease of native coronary artery without angina pectoris (principal); F17.210 Nicotine dependence, cigarettes, uncomplicated; I10 Essential (primary) hypertension | CPT/HCPCS: 99213 ==

== ENCOUNTER → 2023-07-24 10:45 | Outpatient (BNVA) | payer MEDICARE, SELFPAY | PROVIDERS: PCP Nurse Practitioner Family; Visit Provider Internal Medicine Cardiovascular Disease | DX: I25.10 Atherosclerotic heart disease of native coronary artery without angina pectoris (principal); I10 Essential (primary) hypertension; I77.3 Arterial fibromuscular dysplasia; E78.5 Hyperlipidemia, unspecified; F17.210 Nicotine dependence, cigarettes, uncomplicated | CPT/HCPCS: 99214 ==

== ENCOUNTER 2023-08-31 08:40 | Oncology outpatient (recurring) (ONCR) | payer MEDICARE, SELFPAY ==
--- OUTSIDE RECORDS SUMMARY | 2023-08-31 08:42 | XMS_ITS | Continuity of Care Document ---
Author Name Unknown Organization [facility] Address [address] [place] [address]- Care Team Providers Care Sign Writer Hand Name Role Phone Yesy GUEVARA, John Shepherd Primary Care Physician Encounter [facility] Financial Number [id number] Date(s): 04/13/22 - 04/18/23 [facility] [address] [address] Attending Physician: Ad WHEAT, Vannesa Allergies, Adverse Reactions, Alerts Substance Reaction Severity Status naproxen nausea Mild Active Assessment and Plan Future Scheduled Tests Radiology* ECHO Adult Complete 07/07/22 * NM Myocardial Treadmill Multi Spect 07/07/22 Medications busPIRone 10 mg oral tablet 10 mg = 1 tab, By mouth, TID, # 90 tab, Refill(s) 0 Start Date: 06/10/20 Status: Ordered cloNIDine 0.1 mg oral tablet See Instructions, PRN Withdrawal, 1 tab By mouth tid x 7 days. Do not take if blood pressure less than 100., # 21 EA, Refill(s) 0, Pharmacy: [facility], [id number], Instructions Replace Required Details, 1 tab By mout... Start Date: 11/17/20 Status: Ordered gabapentin 800 mg oral tablet 800 mg = 1 tab, By mouth, TID, # 270 tab, Refill(s) 0 Start Date: 06/10/20 Status: Ordered Imdur 30 mg oral tablet, extended release 30 mg = 1 tab, By mouth, QAM, # 90 tab, Refill(s) 3, Pharmacy: [id number], [id number], 1 tab By mouth QAM, 91.36, 07/07/22 11:07:00 CDT, kg, Weight Start Date: 07/07/22 Status: Ordered Metoprolol Succinate ER 25 mg oral tablet, extended release 25 mg = 1 tab, By mouth, BID, # 90 tab, Refill(s) 0 Start Date: 06/10/20 Status: Ordered Colman 10 mg-325 mg oral tablet 1 tab, By mouth, Q6H, 30 tab, 0, 0, Substitution Permitted Start Date: 06/10/20 Stop Date: 06/17/20 Status: Ordered OxyCONTIN 10 mg oral tablet, extended release 10 mg, = 1 tab, By mouth, Q12H, 60 tab, 0, 0, Substitution Permitted, [facility], 66, Height, 11/02/20 8:26:00 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, in, 84.09, Weight, 11/02/20 8:26:00 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, kg Start Date: 11/03/20 Status: Ordered pantoprazole 40 mg oral delayed release tablet 40 mg = 1 tab, By mouth, Daily, # 30 tab, Refill(s) 0 Start Date: 06/10/20 Status: Ordered Plavix 75 mg oral tablet 75 mg = 1 tab, By mouth, Daily, # 30 tab, Refill(s) 0 Start Date: 06/10/20 Status: Ordered simvastatin 40 mg oral tablet 40 mg = 1 tab, By mouth, at bedtime, # 30 tab, Refill(s) 0 Start Date: 06/10/20 Status: Ordered tamsulosin 0.4 mg oral capsule 0.4 mg = 1 cap, By mouth, Daily, # 30 cap, Refill(s) 0, Pharmacy: [facility], [id number], 1 cap By mouth Daily, 66, 07/06/20 11:11:00 CDT, in, 81.45, 07/02/20 9:45:00CDT, kg, Weight Start Date: 07/06/20 Status: Ordered traZODone 100 mg oral tablet See Instructions, 1-1.5 tab By mouth at bedtime, # 45 tab, Refill(s) 5, Pharmacy: [facility], [id number], Instructions Replace Required Details, 1-1.5 tab By mouth atbedtime, 66, 11/02/20 8:26:00 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 Start Date: 11/02/20 Status: Ordered Problem List Condition Confirmation Course Effective Dates Status Health St atus Informant Renal calculi Confirmed Active Tobacco use Confirmed Active Social History Social History Type Response Smoking Status Current every day sm oker; Smokeless tobacco use: Never; Has the patient smoked in the last 365 days, even once? Yes; Type: Chewing tobacco; Type: Cigarettes; Tobacco use per day: 1 1/2 Packs entered on: 07/07/22 Sex Male Patient Care team information Care Team Related Persons Name: TOBIMISA Address: home [address] [place] [phone] [place] Address: mailing [address] [place] [phone] [place]
[2023-08-31 10:15] LABS: Basophils % 0.8 %; Eosinophils # 0.1 10^3/uL (0.0-0.8); Eosinophils % 1.4 %; Hematocrit 34.2 % (37-53); Lymphocytes # 0.7 10^3/uL (0.8-4.8); Lymphocytes % 13.8 %; Mean Corpuscular HGB Conc 30.4 g/dL (30-55); Mean Corpuscular Hemoglobin 28.5 pg (27-33); Mean Corpuscular Volume 93.7 fl (82-101); Mean Platelet Volume 10.9 fL (7.4-10.4); Monocytes # 0.4 10^3/uL (0.2-0.9); Monocytes % 7.3 %; Neutrophils # 3.73 10^3/uL (1.8-7.7); Neutrophils % 75.9 %; Nucleated Red Blood Cells % 0 %; Platelet Count 236 10^3/cmm (157-399); Red Blood Count 3.65 10^6/uL (3.85-5.65); Red Cell Distribution Width 15.9 % (12.1-15.1); White Blood Count 4.92 10^3/uL (3.29-11.43)
[2023-08-31 10:44] LABS: Alanine Aminotransferase 11 U/L (0-41); Albumin Level 4.1 g/dL (3.5-5.2); Alkaline Phosphatase 105 U/L (40-130); Anion Gap 14.8 (5-19); Aspartate Amino Transferase 14 U/L (0-40); Blood Urea Nitrogen 8 mg/dL (6-20); Calcium 9.1 mg/dL (8.5-10.5); Carbon Dioxide 25 mmol/L (22-29); Chloride 106 mmol/L (98-107); Free T4 Free Thyroxine 1.13 ng/dL (0.82-1.77); Globulin 3.8 g/dL (1.3-4.6); Glomerular Filtration Rate 73.4 mL/min (90-130); Glucose 118 mg/dL (65-115); Osmolality Calculated 293 mOsm/kg (285-295); Potassium 3.8 mmol/L (3.5-5.1); Sodium 142 mmol/L (136-145); Thyroid Stimulating Hormone 2.65 uIU/mL (0.27-4.20); Total Bilirubin 0.4 mg/dL (0.15-1.2); Total Protein 7.9 g/dL (6.6-8.7)
[2023-08-31 10:57] LABS: Folate Level 5.1 ng/mL (4.5-32.2)
[2023-08-31 11:43] LABS: Ferritin 81 ng/mL (30-400); Iron 27 ug/dL (59-158); Percent Saturation 8.6 % (20-50); Total Iron Binding Capacity 313 mcg/dl; Unsaturated Iron Binding 286 ug/dL (112-347)
[2023-08-31 11:59] LABS: Vitamin B12 416 pg/mL (232-1245)
== END 2023-09-21 23:59 | disposition home or self-care (01) ==
PROVIDERS: PCP Nurse Practitioner Family; Visit Provider Internal Medicine
DX: D50.9 Iron deficiency anemia, unspecified (principal); I10 Essential (primary) hypertension; F17.210 Nicotine dependence, cigarettes, uncomplicated; Z79.899 Other long term (current) drug therapy
CPT/HCPCS: 80053; 82607; 82728; 82746; 83540; 83550; 84439; 84443; 85025; 99204

== ENCOUNTER 2023-11-14 19:46 | Emergency (ER) | payer MEDICARE, SELFPAY ==
[2023-11-14 19:59] VITALS: BP 152/95; PULSE 86; RESP 14; TEMP 36.7; O2SAT 97
--- NOTE | 2023-11-14 20:37 | XRR_ITS ---
PROCEDURE INFORMATION: Exam: XR Right Hip Exam date and time: 11/14/2023 8:57 PM Age: 43 years old Clinical indication: Injury or trauma; Fall; Blunt trauma (contusions or hematomas); Right; Hip; Additional info: Hip pain TECHNIQUE: Imaging protocol: Radiologic exam of the right hip. Views: 1 view hip with pelvis when performed. COMPARISON: CT abdomen pelvis w con* [id number] 05/26/2021 5:44 PM FINDINGS: Bones/joints: No evidence of fracture or subluxation. Pelvic ring is grossly intact. Sacrum and coccyx are partially obscured by bowel gas/stool. Soft tissues: Grossly unremarkable. XR/XR hip RT 2-3V wo/w pel* [id number] IMPRESSION: 1. No evidence of fracture or subluxation. If there is concern for labral, muscle or tendon pathology, follow-up outpatient MRI may be helpful.
[2023-11-14 21:05] VITALS: BP 162/92; PULSE 75; O2SAT 97
--- NOTE | 2023-11-14 21:08 | W.ED.LOWEXIN ---
HPI - Extremity Injury (Lower) General: Chief Complaint: Extremity Injury, Lower Stated Complaint: back,right leg pain Time Seen by Provider: 11/14/23 20:45 Source: patient Mode of arrival: wheelchair Limitations: no limitations History of Present Illness: Patient is a nice 43-year-old male who presents to ED today with a complaint of right hip and pelvis pain following a fall. Patient states about a week ago he slipped and fell on snow/ice and landed on the right hip/back. Patient states since then he has had quite a bit of discomfort in the hip/pelvis/back. Patient states he is pretty much laid in bed all week secondary to pain. He feels like pain is centered around the right hip with radiation into his right groin and down his right leg. He initially reported not having any low back pain but more pain around his tailbone however later in visit does complain of lumbar pain as well. He has not noticed any color or temperature changes to the right lower extremity. No numbness, tingling, loss of sensation to leg or saddle anesthesia. He has been urinating/defecating normally. He is not having any abdominal pain. MD complaint: hip injury Onset (ago): day(s) Injury: Right: hip Place: home Severity: severe Relieving factors: immobilization Exacerbating factors: weight bearing and movement Context: fall and direct blow Associated symptoms: Reports inability to bear weight Other symptoms: none Review of Systems Const: Denies: fever(s) Card: Denies: chest pain Resp: Denies: dyspnea GI: Denies: abdominal pain : Denies: flank pain, dysuria or hematuria Musc: Reports: back pain, extremity pain (R LE) and joint pain (R hip); Denies: neck pain, extremity swelling, joint swelling, joint redness or joint warmth Skin/Breast: Denies: rash Neuro: Reports: difficulty walking; Denies: headache(s), numbness in extremities, weakness in extremities or sensory changes PFS ED PFSH: Medical History Smoking Iron deficiency anemia Decreased libido Low normal testosterone, 312 in 2021 on testosterone replacement therapy. Urolithiasis Arterial fibromuscular dysplasia Abnormal nuclear stress test Angina pectoris, unstable Erectile dysfunction Dyslipidemia Celiac artery stenosis Hypertension Nephrolithiasis Abdominal aortic aneurysm Coronary artery disease Nicotine dependence, unspecified, uncomplicated Major depressive disorder, recurrent, moderate Generalized anxiety disorder High blood pressure Surgical History H/O heart artery stent Family History Other CAD (coronary artery disease) Denies family history of Diabetes Hyperlipidemia Hypertension Social History Smoking and tobacco/nicotine status: current every day tobacco/nicotine user cigarettes Packs smoked per day: 0.75 Years cigarettes smoked: 20 Quit status (tobacco/nicotine): has tried quititng Number of times tried to quit tobacco: 2 Second hand smoke exposure: Yes Alcohol intake: former Substance/Drug Use: never Household members: spouse Marital status: Current occupational status: disabled Physical Exam Const: COMMON NORMALS: average body habitus, patient oriented x3, no limitations, healthy appearing, alert and well nourished GENERAL APPEARANCE: cooperative and in distress (appears uncomfortable ) ORIENTATION/CONSCIOUSNESS: Yes awake, Yes oriented to person, Yes oriented to place and Yes oriented to time Resp: COMMON NORMALS: normal respiratory effort and clear to auscultation bilaterally AUSCULTATION: clear to auscultation bilaterally Cardio: COMMON NORMALS: regular rate and regular rhythm RATE: regular rate RHYTHM: regular rhythm : COMMON NORMALS: Yes no CVA tenderness BLADDER/KIDNEY EXAM: Yes no CVA tenderness Back/Pelvis: COMMON NORMALS: no CVA tenderness and thoracic and lumbar spine normal to inspection LUMBAR SPINE/LOWER BACK: Yes lumbar spinal tenderness and No paraspinal muscle spasm PELVIS: Yes buttocks normal SACRUM: tenderness COCCYX: Coccyx tenderness present Extremity: COMMON NORMALS: normal to inspection, capillary refill normal, no joint enlargement, no clubbing, cyanosis or edema, no calf tenderness and no pedal edema NARRATIVE EXTREMITY EXAM: pulses starting a femoral all the way down intact/cap refill to R LE normal; normal color/temp when compared to L; no swelling or calf pain noted GENERAL: Yes normal exam except as noted RIGHT LOWER EXTREMITY: Yes hip joint (TTP anteriomedial hip joint) Right hip: Yes ROM (involuntary guarding ROM secondary to pain) and Yes neurovascular exam (normal) Neuro: COMMON NORMALS: patient oriented x3, moves all extremities, no focal motor deficits and no sensory deficits noted SENSORIUM/ORIENTATION: Yes alert, Yes oriented to person, Yes oriented to place and Yes oriented to time GAIT: Yes Unable to assess gait Skin: COMMON NORMALS: no rashes or lesions noted GENERAL SKIN EXAM: no rashes or lesions noted Course Vital Signs: Vital signs: Vital Signs Temperature 98.1 F 11/14/23 19:59 Pulse Rate 86 11/14/23 19:59 Respiratory Rate 17 11/14/23 21:20 Blood Pressure 152/95 11/14/23 19:59 Pulse Oximetry 97 11/14/23 19:59 Oxygen Delivery Me thod Room Air 11/14/23 19:59 MDM - Extremity Injury (Lower) Medical Decision Making Pt underwent XR/CT imaging of lumbar spine/pelvis/hip and no bony abnormalities appreciated. No acute neurologic deficits by history or physical exam. Patient has hydrocodone he can take at home. Will RX for steroids, NSAIDS, and muscle relaxers and have CM set him up with a PCP. Return to ED precautions given. Medical Records I reviewed the patient's medical records. Lab Data Radiology Impressions Hip/Pelvis X-Ray 11/14/23 20:37 IMPRESSION: 1. No evidence of fracture or subluxation. If there is concern for labral, muscle or tendon pathology, follow-up outpatient MRI may be helpful. Pelvis CT 11/14/23 21:13 IMPRESSION: 1. Pelvic ring and both hips are intact. Lumbar Spine X-Ray 11/14/23 22:14 IMPRESSION: 1. No evidence of acute fracture or subluxation of the lumbar spine. If there is ongoing clinical concern, consider correlation with CT. All radiology interpretation(s) finalized by discharge Discharge Plan Discharge Condition: Stable Prescriptions: No Action atorvastatin [Lipitor] 40 mg tablet 40 mg PO DAILY Qty: 90 3RF carvedilol 25 mg tablet 25 mg PO BID 90 Days Qty: 180 3RF Rx Instructions: must administer with a meal/food famotidine 20 mg tablet 20 mg PO DAILY omeprazole 40 mg capsule,delayed release(DR/EC) 40 mg PO DAILY clopidogrel [Plavix] 75 mg tablet 75 mg PO DAILY Qty: 7 0RF Rx Instructions: Patient needs to be seen for further refills trazodone 100 mg tablet 100 mg PO BEDTIME buspirone 10 mg tablet 10 mg PO QID PRN (Reason: Anxiety) amlodipine 10 mg Tablet 10 mg PO DAILY 30 Days Qty: 30 1RF hydrocodone-acetaminophen 10-325 mg tablet 1 tab PO Q4H PRN (Reason: Pain) gabapentin 800 mg tablet 800 mg PO TID Nitrostat 0.4 mg Tablet, Sublingual 0.4 mg SUBLINGUAL Q5M PRN (Reason: Chest Pain) Rx Instructions: do not exceed 3 doses per episode ranolazine 500 mg Tablet Extended Release 12 Hr 1,000 mg PO BID@0900,2100 Qty: 120 0RF Referrals: John Hayward NP [Primary Care Provider] - Coding Level of Care Code ED Rn Hemodialysis Charge for Kristy Phelan
--- NOTE | 2023-11-14 21:13 | CTR_ITS ---
PROCEDURE INFORMATION: Exam: CT Pelvis Without Contrast; Skeletal Exam date and time: 11/14/2023 9:25 PM Age: 43 years old Clinical indication: Injury or trauma; Fall; Blunt trauma (contusions or hematomas); Bilateral; Hip and sacrum and coccyx; Additional info: Fall/trauma; R hip/pelvis/sacral pain TECHNIQUE: Imaging protocol: Computed tomography of the pelvis without contrast. Exam focused on the skeleton. Radiation optimization: All CT scans at this facility use at least one of these dose optimization techniques: automated exposure control; mA and/or kV adjustment per patient size (includes targeted exams where dose is matched to clinical indication); or iterative reconstruction. COMPARISON: CT abdomen pelvis w con* [id number] 05/26/2021 5:44 PM RADIATION DOSE METRICS: Total DLP (mGy-cm): 429 FINDINGS: Bones/joints: Pelvic ring and both hips are intact without evidence of fracture or subluxation. Sacrum and coccyx and SI joints are intact. Soft tissues: No fluid collection or hematoma. Pelvic musculature is grossly intact. There is prominence of the rectal submucosal fat suggestive of sequela of chronic inflammation. CT/CT bony pelvis [id number] IMPRESSION: 1. Pelvic ring and both hips are intact.
[2023-11-14 21:20] VITALS: RESP 17
[2023-11-14] MEDS: morphine 4 mg/mL SDV 1 mL IM (21:20)
--- NOTE | 2023-11-14 22:14 | XRR_ITS ---
PROCEDURE INFORMATION: Exam: XR Lumbosacral Spine Exam date and time: 11/14/2023 10:31 PM Age: 43 years old Clinical indication: Injury or trauma; Fall; Blunt trauma (contusions or hematomas); Additional info: Fall/injury TECHNIQUE: Imaging protocol: Radiologic exam of the lumbosacral spine. Views: 2 or 3 views. COMPARISON: CT bony pelvis [id number] 11/14/2023 9:25 PM FINDINGS: Bones/joints: No evidence of acute fracture or subluxation. Mild-moderate multilevel facet arthrosis. The sacrum and coccyx are partially obscured by bowel gas/stool. Soft tissues: Grossly unremarkable. XR/XR lumbar spine 2-3V* [id number] IMPRESSION: 1. No evidence of acute fracture or subluxation of the lumbar spine. If there is ongoing clinical concern, consider correlation with CT.
[2023-11-14 23:00] VITALS: BP 168/96; PULSE 80; RESP 17; O2SAT 96
[2023-11-14 23:03] VITALS: RESP 17
[2023-11-14] MEDS: dexamethasone 10 mg/mL INJ 8 MG IM (23:03)
[2023-11-14] MEDS: HYDROmorphone 1 mg/mL INJ 1 mL IM (23:03)
[2023-11-14] MEDS: orphenadrine 30 mg/mL Inj 2 mL 60 MG IM (23:04)
[2023-11-14 23:37] VITALS: BP 153/90; PULSE 77; RESP 17; O2SAT 95
== END 2023-11-14 23:38 | disposition home or self-care (01) ==
PROVIDERS: Emergency Provider Physician Assistant; PCP Nurse Practitioner Family
DX: M54.16 Radiculopathy, lumbar region (principal); Z79.02 Long term (current) use of antithrombotics/antiplatelets; F17.210 Nicotine dependence, cigarettes, uncomplicated; E78.5 Hyperlipidemia, unspecified; I10 Essential (primary) hypertension; I25.10 Atherosclerotic heart disease of native coronary artery without angina pectoris
CPT/HCPCS: 72100; 72192; 73502; 96372; 99284; J1100; J1170; J2270; J2360

== ENCOUNTER → 2023-12-07 14:32 | Outpatient (BNVA) | payer MEDICARE, SELFPAY | PROVIDERS: PCP Family Medicine; Referring Provider Family Medicine; Visit Provider Orthopaedic Surgery | DX: M48.062 Spinal stenosis, lumbar region with neurogenic claudication | CPT/HCPCS: 99204 ==

== ENCOUNTER → 2023-12-08 09:12 | Outpatient (BNVA) | payer MEDICARE, SELFPAY | PROVIDERS: PCP Family Medicine; Referring Provider Nurse Practitioner Family; Visit Provider Internal Medicine | DX: N52.9 Male erectile dysfunction, unspecified (principal); E29.1 Testicular hypofunction; E23.7 Disorder of pituitary gland, unspecified; Z12.83 Encounter for screening for malignant neoplasm of skin; R79.89 Other specified abnormal findings of blood chemistry; I10 Essential (primary) hypertension; I25.10 Atherosclerotic heart disease of native coronary artery without angina pectoris | CPT/HCPCS: 99204 ==

== ENCOUNTER 2023-12-19 07:44 | Outpatient (CLI) | payer MEDICARE, SELFPAY ==
[2023-12-19 08:34] LABS: Alanine Aminotransferase 6 U/L (0-41); Albumin Level 2.8 g/dL (3.5-5.2); Alkaline Phosphatase 168 U/L (40-130); Anion Gap 20.8 (5-19); Aspartate Amino Transferase 8 U/L (0-40); Blood Urea Nitrogen 10 mg/dL (6-20); Calcium 9.5 mg/dL (8.5-10.5); Carbon Dioxide 16 mmol/L (22-29); Chloride 103 mmol/L (98-107); Free T4 Free Thyroxine 1.05 ng/dL (0.82-1.77); Globulin 4.9 g/dL (1.3-4.6); Glomerular Filtration Rate 66.1 mL/min (90-130); Glucose 161 mg/dL (65-115); Osmolality Calculated 287 mOsm/kg (285-295); Prostate Specific Antigen Scr 0.25 ng/mL (0-4); Sodium 137 mmol/L (136-145); Testosterone Total 95.4 ng/dL (249-836); Total Bilirubin 0.8 mg/dL (0.15-1.2); Total Protein 7.7 g/dL (6.6-8.7)
[2023-12-19 09:57] LABS: Follicle Stimulating Hormone 7.7 mIU/mL (1.5-12.4); Luteinizing Hormone 5.7 mIU/mL (1.7-8.6); Prolactin 27.49 ng/mL (4.0-15.2)
[2023-12-19 15:25] LABS: Potassium 2.8 mmol/L (3.5-5.1)
== END 2023-12-19 07:45 | disposition home or self-care (01) ==
LOC: LAB 07:45
PROVIDERS: PCP Family Medicine; Visit Provider Internal Medicine
DX: N52.9 Male erectile dysfunction, unspecified (principal); E29.1 Testicular hypofunction; E23.7 Disorder of pituitary gland, unspecified; Z12.83 Encounter for screening for malignant neoplasm of skin; R79.89 Other specified abnormal findings of blood chemistry; I10 Essential (primary) hypertension
CPT/HCPCS: 36415; 80053; 83001; 83002; 84146; 84403; 84439; G0103

== ENCOUNTER 2023-12-19 08:30 | Oncology outpatient (recurring) (ONCR) | payer MEDICARE, SELFPAY ==
[2023-12-01 11:07] LABS: Basophils % 0.3 %; Eosinophils # 0.1 10^3/uL (0.0-0.8); Eosinophils % 1.6 %; Lymphocytes # 0.8 10^3/uL (0.8-4.8); Lymphocytes % 10.6 %; Mean Corpuscular Hemoglobin 25.9 pg (27-33); Mean Corpuscular Volume 86.2 fl (82-101); Mean Platelet Volume 10.4 fL (7.4-10.4); Monocytes # 0.5 10^3/uL (0.2-0.9); Monocytes % 6.5 %; Neutrophils # 6.08 10^3/uL (1.8-7.7); Neutrophils % 80.2 %; Nucleated Red Blood Cells % 0 %; Platelet Count 285 10^3/cmm (157-399); Red Blood Count 3.48 10^6/uL (3.85-5.65); White Blood Count 7.57 10^3/uL (3.29-11.43)
[2023-12-01 11:31] LABS: Alanine Aminotransferase 12 U/L (0-41); Albumin Level 2.9 g/dL (3.5-5.2); Alkaline Phosphatase 156 U/L (40-130); Aspartate Amino Transferase 9 U/L (0-40); Blood Urea Nitrogen 21 mg/dL (6-20); Carbon Dioxide 27 mmol/L (22-29); Chloride 101 mmol/L (98-107); Ferritin 263 ng/mL (30-400); Globulin 4.7 g/dL (1.3-4.6); Glomerular Filtration Rate 55.3 mL/min (90-130); Glucose 116 mg/dL (65-115); Iron 16 ug/dL (59-158); Osmolality Calculated 292 mOsm/kg (285-295); Percent Saturation 9.6 % (20-50); Sodium 139 mmol/L (136-145); Total Bilirubin 0.3 mg/dL (0.15-1.2); Total Iron Binding Capacity 166 mcg/dl; Total Protein 7.6 g/dL (6.6-8.7); Unsaturated Iron Binding 150 ug/dL (112-347)
[2023-12-01 11:48] LABS: Folate Level 2.7 ng/mL (4.5-32.2)
== END 2023-12-21 23:59 | disposition home or self-care (01) ==
PROVIDERS: PCP Nurse Practitioner Family; Visit Provider Internal Medicine
DX: Z53.9 Procedure and treatment not carried out, unspecified reason (principal)
CPT/HCPCS: 36415; 80053; 82728; 82746; 83540; 83550; 85025

== ENCOUNTER 2023-12-19 16:33 | Emergency (ER) | payer MEDICARE, SELFPAY ==
[2023-12-19] VITALS (11 sets, daily range): BP systolic 99–127; BP diastolic 59–65; PULSE 85–95; RESP 16; TEMP 36.6; O2SAT 90–95; BMI 29.0
[2023-12-19 17:13] LABS: Hematocrit 26.2 % (37-53); Mean Corpuscular HGB Conc 28.2 g/dL (30-55); Mean Corpuscular Hemoglobin 24.3 pg (27-33); Mean Corpuscular Volume 86.2 fl (82-101); Mean Platelet Volume 10.6 fL (7.4-10.4); Platelet Count 226 10^3/cmm (157-399); Red Blood Count 3.04 10^6/uL (3.85-5.65); Red Cell Distribution Width 18.6 % (12.1-15.1); White Blood Count 10.12 10^3/uL (3.29-11.43)
[2023-12-19 17:33] LABS: Alanine Aminotransferase 6 U/L (0-41); Alkaline Phosphatase 166 U/L (40-130); Aspartate Amino Transferase 9 U/L (0-40); Blood Urea Nitrogen 12 mg/dL (6-20); Carbon Dioxide 17 mmol/L (22-29); Chloride 104 mmol/L (98-107); Creatinine Clr Calc Pharmacy 79.6419; Globulin 4.4 g/dL (1.3-4.6); Glomerular Filtration Rate 66.1 mL/min (90-130); Glucose 112 mg/dL (65-115); Magnesium 1.9 mg/dL (1.7-2.3); Osmolality Calculated 285 mOsm/kg (285-295); Sodium 137 mmol/L (136-145); Total Protein 7.4 g/dL (6.6-8.7)
[2023-12-19 17:39] LABS: Potassium 3.1 mmol/L (3.5-5.1)
[2023-12-19 17:57] LABS: Slide Review Slide Review Perform; Total Cells Counted 100 (0-100)
[2023-12-19 17:58] LABS: Absolute Eosinophils 0.2 10^3/cmm (0.0-0.7); Absolute Neutrophil 7.4 10^3/cmm (1.4-6.5); Absolute Segmented Neutrophil 7.4 10/cmm (1.6-7.1); Anisocytosis 1+; Eosinophils 2 %; Giant Platelets 1+; Hypochromasia 1+; Lymphocytes 12 %; Lymphocytes Absolute 1.7 10^3/cmm (1.2-3.4); Monocytes Absolute 0.4 10^3/cmm (0.1-0.6); Platelet Estimate Normal (Normal); Segmented Neutrophils 73 %
--- NOTE | 2023-12-19 18:15 | ED_ITS ---
HPI - Recheck/Abnormal Lab/Rx 2 General: Chief Complaint: Recheck/Abnormal Lab/Rx Stated Complaint: dr johnson, abnormal labs Time Seen by Provider: 12/19/23 17:45 Source: patient Mode of arrival: ambulatory Limitations: no limitations History of Present Illness: 43-year-old male states he had his blood checked and was called and told he is hypokalemic and needed to come to the ER. He states that he has not had any new symptoms he states that he had fell on the ice and October and injured his back states he been having some back pain since then along with fatigue and imaging here that was normal but he is scheduled for an MRI. He denies any fever denies any cough Review of Systems 2 Const: Denies: fever(s), chills, body aches or change in appetite ENMT: Denies: throat pain or dental pain Card: Denies: chest pain Resp: Denies: dyspnea GI: Denies: abdominal pain, nausea, vomiting or diarrhea Musc: Reports: back pain; Denies: neck pain Skin/Breast: Denies: rash Neuro: Denies: headache(s) PFSH ED 2 PFSH: Medical History Smoking Iron deficiency anemia Decreased libido Low normal testosterone, 312 in 2021 on testosterone replacement therapy. Urolithiasis Arterial fibromuscular dysplasia Abnormal nuclear stress test Angina pectoris, unstable Erectile dysfunction Dyslipidemia Celiac artery stenosis Hypertension Nephrolithiasis Abdominal aortic aneurysm Coronary artery disease Nicotine dependence, unspecified, uncomplicated Major depressive disorder, recurrent, moderate Generalized anxiety disorder High blood pressure Surgical History H/O heart artery stent Family History Other CAD (coronary artery disease) Denies family history of Diabetes Hyperlipidemia Hypertension Social History Smoking and tobacco/nicotine status: current every day tobacco/nicotine user cigarettes Packs smoked per day: 0.75 Years cigarettes smoked: 20 Quit status (tobacco/nicotine): has tried quititng Number of times tried to quit tobacco: 2 Second hand smoke exposure: Yes Alcohol intake: former Substance/Drug Use: never Household members: spouse Marital status: Current occupational status: disabled Physical Exam 2 Const: COMMON NORMALS: no acute distress, patient oriented x3 and healthy appearing HENMT: COMMON NORMALS: normocephalic and atraumatic HEAD & SCALP: n ormocephalic and atraumatic Eye: COMMON NORMALS: Equal, round and reactive pupils present and EOMs intact bilaterally PUPIL: Yes Equal, round and reactive pupils present Neck/C-Spine: COMMON NORMALS: full ROM and supple Chest: COMMONS NORMALS: normal inspection of the chest and normal palpation of entire chest wall Resp: COMMON NORMALS: normal respiratory effort, No retractions, No use of accessory muscles and clear to auscultation bilaterally AUSCULTATION: clear to auscultation bilaterally Cardio: COMMON NORMALS: regular rate, regular rhythm and No murmurs present (Cardio) RATE: regular rate RHYTHM: regular rhythm GI: COMMON NORMALS: Normal to inspection, nondistended, normoactive bowel sounds present, Soft to palpation, non-tender and no masses PALPATION: Yes Soft to palpation Extremity: COMMON NORMALS: normal to inspection and full ROM Neuro: COMMON NORMALS: patient oriented x3, moves all extremities and no focal motor deficits Psych: COMMON NORMALS: mental status grossly normal, Normal thought process present and cooperative THOUGHT PROCESS: Normal thought process present Skin: COMMON NORMALS: no rashes or lesions noted and no wounds GENERAL SKIN EXAM: no rashes or lesions noted Course 2 Vital Signs: Vital signs: Vital Signs Temperature 97.9 F 12/19/23 16:48 Pulse Rate 95 12/19/23 16:48 Respiratory Rate 16 12/19/23 16:48 Blood Pressure 99/65 12/19/23 16:48 Pulse Oximetry 95 12/19/23 16:48 Oxygen Delivery Me thod Room Air 12/19/23 16:48 MDM - Recheck/Abnormal Lab/Rx Medical Decision Making Patient was sent here for hypokalemia potassium, PCPs is 2.8-3.1 here he is well-appearing here he did have slight anemia here as well he denies any blood in his stool no active bleeding we will start him on potassium replacement he is to follow back up with his PCP next week for recheck of his hemoglobin and his potassium is return to the ER if worsening. Medical Records I reviewed the patient's medical records. Lab Data I reviewed the patient's lab results. 12/19/23 16:56 12/19/23 16:56 Laboratory Results WBC 10.12 10^3/uL (3.29-11.43) 12/19/23 16:56 RBC 3.04 10^6/uL (3.85-5.65) L 12/19/23 16:56 Hgb 7.40 g/dL (11.27-16.99) L 12/19/23 16:56 Hct 26.2 % (37-53) L 12/19/23 16:56 MCV 86.2 fl (82-101) 12/19/23 16:56 MCH 24.3 pg (27-33) L 12/19/23 16:56 MCHC 28.2 g/dL (30-55) L 12/19/23 16:56 RDW 18.6 % (12.1-15.1) H 12/19/23 16:56 Plt Count 226 10^3/cmm (157-399) 12/19/23 16:56 MPV 10.6 fL (7.4-10.4) H 12/19/23 16:56 Lymph % (Auto) Not Reportable 12/19/23 16:56 Bradford % (Auto) Not Reportable 12/19/23 16:56 Lymph # (Auto) Not Reportable 12/19/23 16:56 Bradford # (Auto) Not Reportable 12/19/23 16:56 Total Counted 100 (0-100) 12/19/23 16:56 Atypical Lymphs % 5.0 % (0-5) 12/19/23 16:56 Absolute Neutrophils 7.4 10^3/cmm (1.4-6.5) H 12/19/23 16:56 Segmented Neutrophils 73 % 12/19/23 16:56 Abs Segm Neuts (Man) 7.4 10/cmm (1.6-7.1) H 12/19/23 16:56 Band Neutrophils 0.0 % 12/19/23 16:56 Abs Band Neuts (Man) 0.0 10^3/cmm (0.0-1.2) 12/19/23 16:56 Absolute Lymphocytes 1.7 10^3/cmm (1.2-3.4) 12/19/23 16:56 Lymphocytes (Manual) 12 % 12/19/23 16:56 Monocytes (Manual) 4.0 % 12/19/23 16:56 Absolute Monocytes 0.4 10^3/cmm (0.1-0.6) 12/19/23 16:56 Eosinophils (Manual) 2 % 12/19/23 16:56 Absolute Eosinophils 0.2 10^3/cmm (0.0-0.7) 12/19/23 16:56 Basophils (Manual) 0.0 % 12/19/23 16:56 Absolute Basophils 0.0 10^3/cmm (0.0-0.2) 12/19/23 16:56 Metamyelocytes 2.0 % 12/19/23 16:56 Myelocytes 2.0 % 12/19/23 16:56 Platelet Estimate Normal (Normal) 12/19/23 16:56 Giant Platelets 1+ H 12/19/23 16:56 Hypochromasia 1+ H 12/19/23 16:56 Anisocytosis 1+ H 12/19/23 16:56 Sodium 137 mmol/L (136-145) 12/19/23 16:56 Potassium 3.1 mmol/L (3.5-5.1) L 12/19/23 16:56 Chloride 104 mmol/L (98-107) 12/19/23 16:56 Carbon Dioxide 17 mmol/L (22-29) L 12/19/23 16:56 Anion Gap 19.0 (5-19) 12/19/23 16:56 BUN 12 mg/dL (6-20) 12/19/23 16:56 Creatinine 1.2 mg/dL (0.7-1.2) 12/19/23 16:56 GFR Calculation 66.1 mL/min (90-130) L 12/19/23 16:56 Glucose 112 mg/dL (65-115) 12/19/23 16:56 Calculated Osmolality 285 mOsm/kg (285-295) 12/19/23 16:56 Calcium 10.0 mg/dL (8.5-10.5) 12/19/23 16:56 Magnesium 1.9 mg/dL (1.7-2.3) 12/19/23 16:56 Total Bilirubin 1.0 mg/dL (0.15-1.2) 12/19/23 16:56 AST 9 U/L (0-40) 12/19/23 16:56 ALT 6 U/L (0-41) 12/19/23 16:56 Alkaline Phosphatase 166 U/L (40-130) H 12/19/23 16:56 Total Protein 7.4 g/dL (6.6-8.7) 12/19/23 16:56 Albumin 3.0 g/dL (3.5-5.2) L 12/19/23 16:56 Globulin 4.4 g/dL (1.3-4.6) 12/19/23 16:56 No radiology studies performed this visit Discharge Plan Discharge Patient Disposition: Home Clinical Impression: Hypokalemia, Anemia Condition: Stable Prescriptions: New potassium chloride 20 mEq packet 20 meq PO BID Qty: 10 0RF No Action atorvastatin [Lipitor] 40 mg tablet 40 mg PO DAILY Qty: 90 3RF carvedilol 25 mg tablet 25 mg PO BID 90 Days Qty: 180 3RF Rx Instructions: must administer with a meal/food famotidine 20 mg tablet 20 mg PO DAILY omeprazole 40 mg capsule,delayed release(DR/EC) 40 mg PO DAILY clopidogrel [Plavix] 75 mg tablet 75 mg PO DAILY Qty: 7 0RF Rx Instructions: Patient needs to be seen for further refills folic acid 1 mg tablet 1 mg PO DAILY Qty: 30 1RF methocarbamol 500 mg tablet 1,000 mg PO Q8H Qty: 30 0RF ibuprofen 800 mg tablet 800 mg PO Q8H PRN (Reason: pain) Qty: 20 0RF Medrol (Rishi) 4 mg tablets,dose pack See Rx Instructions .ROUTE .COMPLEX Qty: 21 0RF Rx Instructions: orally per package directions trazodone 100 mg tablet 100 mg PO BEDTIME buspirone 10 mg tablet 10 mg PO QID PRN (Reason: Anxiety) amlodipine 10 mg Tablet 10 mg PO DAILY 30 Days Qty: 30 1RF hydrocodone-acetaminophen 10-325 mg tablet 1 tab PO Q4H PRN (Reason: Pain) gabapentin 800 mg tablet 800 mg PO TID Nitrostat 0.4 mg Tablet, Sublingual 0.4 mg SUBLINGUAL Q5M PRN (Reason: Chest Pain) Rx Instructions: do not exceed 3 doses per episode ranolazine 500 mg Tablet Extended Release 12 Hr 1,000 mg PO BID@0900,2100 Qty: 120 0RF Discharge Orders: Discharge ED (Routine); Ordered 12/19/23 Ordered By: Claire Covington Referrals: Riccardo Wright MD [Primary Care Provider] - 1-3 days Discharge Diet: Advance as tolerated Discharge Activity: Resume usual activity Patient Instructions: Hypokalemia (ED) Coding Level of Care Code ED Manager Of Radiology for Kristy Phelan
[2023-12-19] MEDS: potassium chloride ER 20 mEq Tablet 40 MEQ PO (18:35)
== END 2023-12-19 18:38 | disposition home or self-care (01) ==
PROVIDERS: Emergency Provider Emergency Medicine; PCP Family Medicine
DX: E87.6 Hypokalemia (principal); D64.9 Anemia, unspecified; Z79.02 Long term (current) use of antithrombotics/antiplatelets; F17.210 Nicotine dependence, cigarettes, uncomplicated; E78.5 Hyperlipidemia, unspecified; I10 Essential (primary) hypertension; I25.10 Atherosclerotic heart disease of native coronary artery without angina pectoris
CPT/HCPCS: 36415; 80053; 83735; 85007; 85025; 99283

== ENCOUNTER 2023-12-22 12:44 | Observation (INO) | payer MEDICARE, SELFPAY ==
[2023-12-22] VITALS (12 sets, daily range): BP systolic 129–157; BP diastolic 71–89; PULSE 76–84; RESP 16–20; TEMP 36.6–37.1; O2SAT 94–98
--- NOTE | 2023-12-22 13:31 | XR_ITS ---
WS: [id number] Exam: XR chest 1V portable [id number] Date/Time of Exam: 12/22/2023 1:46 PM Reason For Exam: severe anemia Comparison 04/28/2023. Innumerable soft tissue nodules noted throughout both lungs. The lungs are fully expanded. No consoli dated infiltrates. Unremarkable cardiomediastinal silhouette. Regional bony elements are intact. IMPRESSION: 1. Innumerable soft tissue nodules throughout both lungs representing significant change since previo us study. Metastatic disease, septic emboli, granulomatous or rheumatoid disease might be of conside ration.
--- NOTE | 2023-12-22 13:37 | CT_ITS ---
WS: [id number] CT HEAD NONCONTRAST HISTORY: hallucinations TECHNIQUE: Contiguous axial imaging performed through the brain in 2.5 mm imaging. Bone and soft tiss ue windows. Sagittal and coronal reformats reviewed. All CT scans at [facility] use at least one of these dose optimization techniques: automated exposure control; mA and/or kV adjustment per pa tient size (includes targeted exams where dose is matched to clinical indication); or iterative recon struction. DLP: 1124.28 mGy.cm COMPARISON: 08/07/2007 No acute intracranial hemorrhage, midline shift or mass effect. Mild atrophy and small vessel ischemic disease. Ventricles: Normal size with no hydrocephalus. No inferior displacement the cerebellar tonsils. Paranasal sinuses: As visualized are clear. Mastoid air cells: Well pneumatized. Calvarium and scalp: Skull is intact with no soft tissue edema or swelling. IMPRESSION: 1. No acute intracranial hemorrhage or edema. 2. No infarct. No significant volume loss.
--- NOTE | 2023-12-22 13:40 | P.HP_ITS ---
Providers/Chief Complaint Admitting Physician: Eleazar Rodriguez MD Primary Care Provider: Riccardo Wright MD Chief Complaint: Symptomatic Anemia History of Present Illness Tomas Pineda is a 43 year old male presents as a direct admit from hematology clinic. There was concern over there, regarding severe progressive anemia with need for transfusion and unknown etiology of anemia. Patient reports this has been going on for quite a while, but is not the greatest historian. I believe his anemia has been progressing at least since August. He denies being on any blood thinners but is on an antiplatelet, Plavix, for his history of coronary artery disease and stenting. He reports no significant stomach problems, vomiting, nausea, or hematemesis. He reports he was told he had iron deficiency anemia and went on iron for short while, around a month and had some black stools then but typically does not have any black or tarry stools. He reports no nosebleeds. He reports no prior history of anemia. He reports no chronic diarrhea. As far as his symptomatology he states he feels very tired, cannot get up and move around, is in chronic pain from his back which he hurt 6 weeks ago or so. Girlfriend also reports he has been having hallucinations lately such as seeing a cat in the room. No recent fever. He was noted to have a low- grade temperature, of around 99 ?F in the hematology clinic. He can get short of breath with minimal exertion. Review of Systems General: Reports: 10 or more systems reviewed and unremarkable except in HPI and below Card: Denies: chest pain Resp: Denies: dyspnea GI: Denies: abdominal pain, nausea, vomiting, hematemesis, hematochezia or melena Medications/Allergies Home Medications Medication Instructions Recorded Confirmed Last Taken Type clopidogrel 75 mg tablet (Plavix) 75 mg PO DAILY #7 tabs 08/20/21 12/22/23 08/29/22 Rx buspirone 10 mg tablet 10 mg PO QID PRN Anxiety 08/30/22 12/22/23 08/30/22 History trazodone 100 mg tablet 100 mg PO BEDTIME 08/30/22 12/22/23 08/29/22 History amlodipine 10 mg tablet 10 mg PO DAILY 30 days #30 tabs 09/03/22 12/22/23 Unkno wn Rx gabapentin 800 mg tablet 800 mg PO TID 04/28/23 12/22/23 Unknown History hydrocodone 10 mg-acetaminophen 1 tab PO Q4H PRN Pain 04/28/23 12/22/23 Unknown History 325 mg tablet nitroglycerin 0.4 mg sublingual 0.4 mg sublingual Q5M PRN Chest 04/28/23 12/22/23 Unknown History tablet (Nitrostat) Pain ranolazine 500 mg tablet,extended 1,000 mg (2 x 500 mg) PO 04/28/23 12/22/23 U nknown Rx release,12 hr BID@0900,2100 #120 tabs atorvastatin 40 mg tablet (Lipitor) 40 mg PO DAILY #90 tabs 07/24/23 12/22/23 Unknown Rx carvedilol 25 mg tablet 25 mg PO BID 90 days #180 tabs 07/24/23 12/22/23 Unknown Rx famotidine 20 mg tablet 20 mg PO DAILY 08/31/23 12/22/23 Unknown History omeprazole 40 mg capsule,delayed 40 mg PO DAILY 08/31/23 12/22/23 Unknown History release ibuprofen 800 mg tablet 800 mg PO Q8H PRN pain #20 tabs 11/14/23 12/22/23 Unknown Rx methocarbamol 500 mg tablet 1,000 mg (2 x 500 mg) PO Q8H #30 11/14/23 12/22/23 Unknown Rx tabs methylprednisolone 4 mg tablets in See Rx Instructions PO .COMPLEX 11/14/23 12/22/23 Unknown Rx a dose pack (Medrol (Rishi)) #21 ea folic acid 1 mg tablet 1 mg PO DAILY #30 tabs 12/01/23 12/22/23 Unknown Rx potassium chloride 20 mEq oral 20 meq PO BID #10 ea 12/19/23 12/22/23 Unknown Rx packet Allergies Allergy/AdvReac Type Severity Reaction Status Date / Time tramadol Allergy ADR-Confusi Verified 12/22/23 13:50 on naproxen AdvReac Intermediate Makes sick Verified 12/22/23 10:26 to stomach PFSH Acute PFSH: Medical History (Updated 12/22/23 @ 13:44 by Eleazar Rodriguez MD) Back pain, chronic GERD (gastroesophageal reflux disease) Smoking Iron deficiency anemia Decreased libido Low normal testosterone, 312 in 2021 on testosterone replacement therapy. Urolithiasis Arterial fibromuscular dysplasia Abnormal nuclear stress test Angina pectoris, unstable Erectile dysfunction Dyslipidemia Celiac artery stenosis Hypertension Nephrolithiasis Abdominal aortic aneurysm Coronary artery disease Nicotine dependence, unspecified, uncomplicated Major depressive disorder, recurrent, moderate Generalized anxiety disorder High blood pressure Surgical History H/O heart artery stent Family History Other CAD (coronary artery disease) Denies family history of Diabetes Hyperlipidemia Hypertension Social History Smoking and tobacco/nicotine status: current every day tobacco/nicotine user cigarettes Packs smoked per day: 0.75 Years cigarettes smoked: 20 Quit status (tobacco/nicotine): has tried quititng Number of times tried to quit tobacco: 2 Second hand smoke exposure: Yes Alcohol intake: former Substance/Drug Use: never Household members: spouse Marital status: Current occupational status: disabled Physical Exam Narrative: General exam no distress, sleeping HEENT: Atraumatic normocephalic. Oropharynx clear Neck is supple no lymphadenopathy thyromegaly Cardiovascular regular rate and rhythm, heart sounds distant, no murmur Lungs clear, lung sounds distant Abdomen is soft nontender positive bowel sounds. No obvious organomegaly exams deferred Extremities cyanosis clubbing or edema, cap refill brisk Skin no rash Neuro no obvious focal deficits. Data Other Labs: White blood cell count 10.7, hemoglobin 6.6, platelet count 189 Differential with slight left shift Sodium 133, potassium 3.1, chloride 101, bicarb 15, BUN 13, creatinine 1.2, glucose 174. A1c was normal approximately 5 months ago Iron 40, TIBC 146, percent saturation 27% Calcium normal. Albumin 2.8. Corrected calcium is 11.2 Alk phos 170 LFTs normal Ferritin 1493 Total protein 7.4 A&P Assessment and plan (1) Anemia: Patient presents with a severe symptomatic anemia. Etiology is not perfectly clear. He had been diagnosed with iron deficiency anemia in the past but does not appear iron deficient currently. Check B12 and folate Check LDH and haptoglobin Denies any ongoing blood loss but will check stool Hemoccult Will ultimately need an EGD and colonoscopy. Note that on previous CT scan of pelvis he had some rectal inflammation. Sedimentation rate and CRP Repeat his TSH Protonix 40 mg twice daily Transfused 2 units of packed red blood cells Check chest x-ray, urinalysis Discontinue ibuprofen Hydrate (2) Hallucination: Unknown etiology for hallucinations. This could be secondary to his chronic medications. He does take quite a high dose of Neurontin, is on hydrocodone, and is also methocarbamol Reduce Neurontin dose Check CT head Note that calcium is adjusted for albumin is high. This may be secondary to some dehydration. Review again tomorrow. (3) Hypokalemia: Supplement potassium Check magnesium level Plan Hypercalcemia. Calcium is high when adjusted for albumin. Recheck tomorrow following hydration Mild metabolic acidosis. May be secondary to mild dehydration. Initiate fluids and recheck tomorrow. Tobacco dependency. Nicotine patch. Discussed to quit. Multiple other medical problems as listed in his past medical history including chronic back pain Attestations Medical Necessity Statement*: Will need less than 2 midnight stay for evaluation of anemia and transfusion. Diagnoses Anemia D64.9 Hallucination R44.3 Hypokalemia E87.6 Time Spent (min) 64
[2023-12-22 14:26] LABS: Reticulocyte % 1.3 % (0.5-2.0)
[2023-12-22] MEDS: pantoprazole 40 mg SDV IVP (14:33)
[2023-12-22 14:39] LABS: Erythrocyte Sedimentation Rate 49 mm/hr (0-10)
[2023-12-22] MEDS: sodium chlor 0.9% + KCl 20 mEq 20 MEQ/1,000 ML BAG 100 MEQ IV (14:39)
[2023-12-22] MEDS: nicotine 21 mg Patch 1 PATCH TRANSDERMA (14:40)
[2023-12-22] MEDS: potassium chloride ER 20 mEq Tablet 40 MEQ PO (14:48)
[2023-12-22] MEDS: acetaminophen 325 mg Tablet 650 MG PO (14:48)
[2023-12-22 15:12] LABS: C Reactive Protein 349.3 mg/L (0.0-4.9); Lactate Dehydrogenase 619 U/L (135-225); Thyroid Stimulating Hormone 0.72 uIU/mL (0.27-4.20); Vitamin B12 1331 pg/mL (232-1245)
[2023-12-22 16:50] LABS: Folate Level 6.4 ng/mL (4.5-32.2)
[2023-12-22] MEDS: carvedilol 25 mg Tablet PO (17:29)
[2023-12-22] MEDS: HYDROcodone-acetaminophen 10-325 mg Tablet 1 TAB PO ×2 (17:35→21:35)
[2023-12-22 18:44] LABS: Bilirubin Urine Neg (Negative); Blood Urine Neg (Negative); Glucose Urine UA Norm (Normal); Ketones Urine Negative (Negative); Leukocyte Esterase Urine Negative (Negative); Nitrate Urine Negative (Negative); Protein Urine 1+ (Negative); Urine Appearance Clear (CLEAR); Urine Color Amber (Yellow); Urobilinogen Urine 1 mg/dL (Negative); pH Urine 5 (5-7)
[2023-12-22 18:45] LABS: Amorphous Sediment Urine TRACE /hpf; Bacteria Urine TRACE /hpf; Mucus Urine TRACE /hpf; RBC Urine 0-4 /hpf (0-2); Squamous Epithelial Cell Urine 0-4 /hpf (0-5); WBC Urine 0-4 /hpf (0-5)
[2023-12-22] MEDS: ranolazine (12HR) 500 mg Tablet 1000 MG PO (21:34)
[2023-12-22] MEDS: gabapentin 300 mg Capsule PO (21:34)
[2023-12-22] MEDS: trazodone 100 mg Tablet PO (21:35)
[2023-12-22 23:33] LABS: LAB Peripheral Smear Sent for Review
[2023-12-23] VITALS (9 sets, daily range): BP systolic 131–156; BP diastolic 70–91; PULSE 79–85; RESP 16–18; TEMP 36.2–36.9; O2SAT 94–97
[2023-12-23] MEDS: acetaminophen 325 mg Tablet 650 MG PO (00:06)
[2023-12-23 03:11] LABS: Charge for UA Resulting for Rev
[2023-12-23 03:14] LABS: Basophils # 0.1 10^3/uL (0.0-0.1); Basophils % 0.5 %; Eosinophils # 0.2 10^3/uL (0.0-0.8); Eosinophils % 1.6 %; Lymphocytes # 1.1 10^3/uL (0.8-4.8); Lymphocytes % 10.7 %; Mean Corpuscular Volume 83.3 fl (82-101); Mean Platelet Volume 11.8 fL (7.4-10.4); Monocytes # 0.5 10^3/uL (0.2-0.9); Monocytes % 4.5 %; Neutrophils # 8.08 10^3/uL (1.8-7.7); Neutrophils % 75.7 %; Nucleated Red Blood Cells % 0.2 %; Platelet Count 164 10^3/cmm (157-399); Red Blood Count 3.24 10^6/uL (3.85-5.65); Red Cell Distribution Width 18.8 % (12.1-15.1); White Blood Count 10.67 10^3/uL (3.29-11.43)
[2023-12-23 03:17] LABS: Bilirubin Urine Neg (Negative); Blood Urine Neg (Negative); Glucose Urine UA Norm (Normal); Ketones Urine Negative (Negative); Leukocyte Esterase Urine Negative (Negative); Nitrate Urine Negative (Negative); Protein Urine Trace (Negative); Specific Gravity, Urine 1.015 (1.005-1.030); Urine Appearance Clear (CLEAR); Urine Color Yellow (Yellow); Urobilinogen Urine Norm (Negative); pH Urine 5 (5-7)
[2023-12-23] MEDS: HYDROcodone-acetaminophen 10-325 mg Tablet 1 TAB PO ×4 (03:19→21:11)
[2023-12-23] MEDS: pantoprazole 40 mg SDV IVP ×2 (03:20→16:17)
[2023-12-23] MEDS: sodium chlor 0.9% + KCl 20 mEq 20 MEQ/1,000 ML BAG 100 MEQ IV ×2 (03:20→08:54)
[2023-12-23 03:23] LABS: Add Urine Microscopic? YES
[2023-12-23 03:45] LABS: Alanine Aminotransferase 7 U/L (0-41); Albumin Level 2.6 g/dL (3.5-5.2); Alkaline Phosphatase 160 U/L (40-130); Anion Gap 20.3 (5-19); Aspartate Amino Transferase 14 U/L (0-40); Blood Urea Nitrogen 13 mg/dL (6-20); Calcium 9.8 mg/dL (8.5-10.5); Carbon Dioxide 16 mmol/L (22-29); Chloride 104 mmol/L (98-107); Creatinine Clr Calc Pharmacy 103.6906; Globulin 4.4 g/dL (1.3-4.6); Glomerular Filtration Rate 92.1 mL/min (90-130); Glucose 112 mg/dL (65-115); Osmolality Calculated 285 mOsm/kg (285-295); Potassium 3.3 mmol/L (3.5-5.1); Sodium 137 mmol/L (136-145); Total Bilirubin 0.8 mg/dL (0.15-1.2)
--- NOTE | 2023-12-23 06:43 | PC.NURSE ---
Patient was complaining of pain and pressure in his bladder and he felt like he couldn't pee. Bladder scan showed 500ml. Dr. Coelho was notified and he ordered a kulkarni.
[2023-12-23] MEDS: nicotine 21 mg Patch 1 PATCH TRANSDERMA (08:53)
[2023-12-23] MEDS: atorvastatin 40 mg Tablet PO (08:53)
[2023-12-23] MEDS: carvedilol 25 mg Tablet PO ×2 (08:53→17:13)
[2023-12-23] MEDS: gabapentin 300 mg Capsule PO ×3 (08:53→21:11)
[2023-12-23] MEDS: amlodipine 10 mg Tablet PO (08:53)
[2023-12-23] MEDS: ranolazine (12HR) 500 mg Tablet 1000 MG PO ×2 (08:58→21:11)
--- NOTE | 2023-12-23 10:27 | P.CONIM_ITS ---
Providers/Reason For Consult 2 Consulting Physician/Specialty*: General surgery Reason for Consult*: Possible upper GI bleeding Attending Physician: Jennifer Girard MD Primary Care Provider: Riccardo Wright MD History of Present Illness History of Present Illness Tomas Pineda is a 43 year old male with history of chronic anemia, who was admitted yesterday due to altered mental status and weakness. After hospital admission patient had 1 witnessed episode of black and tarry stool. Due to this finding I have been consulted for evaluation for possible upper endoscopy. Per patient report he does not have abdominal pain, no other significant symptoms, no nausea no vomiting. He just feels very weak all the time. Review of Systems 2 General: Reports: 10 or more systems reviewed and unremarkable except in HPI and below Medications/Allergies Home Medications Medication Instructions Recorded Confirmed Last Taken Type clopidogrel 75 mg tablet (Plavix) 75 mg PO DAILY #7 tabs 08/20/21 12/22/23 08/29/22 Rx buspirone 10 mg tablet 10 mg PO QID PRN Anxiety 08/30/22 12/22/23 08/30/22 History trazodone 100 mg tablet 100 mg PO BEDTIME 08/30/22 12/22/23 12/21/23 History amlodipine 10 mg tablet 10 mg PO DAILY 30 days #30 tabs 09/03/22 12/22/23 12/22/23 Rx gabapentin 800 mg tablet 800 mg PO TID 04/28/23 12/22/23 12/22/23 History hydrocodone 10 mg-acetaminophen 1 tab PO Q4H PRN Pain 04/28/23 12/22/23 Unknown History 325 mg tablet nitroglycerin 0.4 mg sublingual 0.4 mg sublingual Q5M PRN Chest 04/28/23 12/22/23 Unknown History tablet (Nitrostat) Pain ranolazine 500 mg tablet,extended 1,000 mg (2 x 500 mg) PO 04/28/23 12/22/23 12/22/23 Rx release,12 hr BID@0900,2100 #120 tabs atorvastatin 40 mg tablet (Lipitor) 40 mg PO DAILY #90 tabs 07/24/23 12/22/23 12/21/23 Rx carvedilol 25 mg tablet 25 mg PO BID 90 days #180 tabs 07/24/23 12/22/23 12/22/23 Rx famotidine 20 mg tablet 20 mg PO DAILY 08/31/23 12/22/23 12/22/23 History omeprazole 40 mg capsule,delayed 40 mg PO DAILY 08/31/23 12/22/23 12/22/23 History release ibuprofen 800 mg tablet 800 mg PO Q8H PRN pain #20 tabs 11/14/23 12/22/23 Unknown Rx folic acid 1 mg tablet 1 mg PO DAILY #30 tabs 12/01/23 12/22/23 12/22/23 Rx potassium chloride 20 mEq oral 20 meq PO BID #10 ea 12/19/23 12/22/23 12/22/23 Rx packet Allergies Allergy/AdvReac Type Severity Reaction Status Date / Time tramadol Allergy ADR-Confusi Verified 12/22/23 13:50 on naproxen AdvReac Intermediate Makes sick Verified 12/22/23 10:26 to stomach Current Medications Generic Name Dose Route Start Last Admin Trade Name Freq PRN Reason Stop Dose Admin Acetaminophen 650 mg 12/22/23 13:31 12/23/23 00:06 Acetaminophen 325 Mg Tablet PO 650 mg Q6H PRN Administration Mild/Mod Pain Or Temp >/= 101 Hydrocodone Bitart/Acetaminophen 1 tab 12/22/23 16:07 12/23/23 08:53 Hydrocodone-Acetaminophen 10-325 Mg Tablet PO 1 tab Q4H PRN Administration Pain Amlodipine Besylate 10 mg 12/23/23 09:00 12/23/23 08:53 Amlodipine 10 Mg Tablet PO 10 mg DAILY WAYLON Administration Atorvastatin Calcium 40 mg 12/23/23 09:00 12/23/23 08:53 Atorvastatin 40 Mg Tablet PO 40 mg DAILY WAYLON Administration Carvedilol 25 mg 12/22/23 18:00 12/23/23 08:53 Carvedilol 25 Mg Tablet PO 25 mg BID WAYLON Administration Gabapentin 300 mg 12/22/23 21:00 12/23/23 08:53 Gabapentin 300 Mg Capsule PO 300 mg TID WAYLON Administration Nicotine 1 patch 12/22/23 13:40 12/23/23 08:53 Nicotine 21 Mg Patch TRANSDERMA 1 patch DAILY WAYLON Administration Pantoprazole Sodium 40 mg 12/22/23 13:45 12/23/23 03:20 Pantoprazole 40 Mg Sdv IVP 40 mg Q12H WAYLON Administration Ranolazine 1,000 mg 12/22/23 21:00 12/23/23 08:58 Ranolazine (12hr) 500 Mg Tablet PO 1,000 mg BID@0900,2100 WAYLON Administration Trazodone HCl 100 mg 12/22/23 21:00 12/22/23 21:35 Trazodone 100 Mg Tablet PO 100 mg BEDTIME WAYLON Administration PFSH Acute 2 PFSH: Medical History (Updated 12/23/23 @ 10:32 by Perry Hinojosa MD) Back pain, chronic GERD (gastroesophageal reflux disease) Smoking Iron deficiency anemia Decreased libido Low normal testosterone, 312 in 2021 on testosterone replacement therapy. Urolithiasis Arterial fibromuscular dysplasia Abnormal nuclear stress test Angina pectoris, unstable Erectile dysfunction Dyslipidemia Celiac artery stenosis Hypertension Nephrolithiasis Abdominal aortic aneurysm Coronary artery disease Nicotine dependence, unspecified, uncomplicated Major depressive disorder, recurrent, moderate Generalized anxiety disorder High blood pressure Surgical History H/O heart artery stent Family History Other CAD (coronary artery disease) Denies family history of Diabetes Hyperlipidemia Hypertension Social History Smoking and tobacco/nicotine status: current every day tobacco/nicotine user cigarettes Packs smoked per day: 0.75 Years cigarettes smoked: 20 Quit status (tobacco/nicotine): has tried quititng Number of times tried to quit tobacco: 2 Second hand smoke exposure: Yes Alcohol intake: former Substance/Drug Use: never Household members: spouse Marital status: Current occupational status: disabled Vitals/I&O/Wt Last Vital Signs Temp 97.5 F L 12/23/23 08:09 Pulse 83 12/23/23 08:09 Resp 17 12/23/23 08:09 BP 153/82 12/23/23 08:09 Pulse Ox 95 12/23/23 08:09 O2 Del Method Room Air 12/23/23 08:09 12/22/23 12/23/23 12/23/23 22:59 06:59 14:59 Intake Total 1126.667 / 1126.667 668.333 / 1795.000 695.000 / 695.000 Output Total 600 / 600 275 / 875 Balance 526.667 / 526.667 393.333 / 920.000 695.000 / 695.000 Weight last 48 hrs Weight 169 lb 9 oz Weight 170 lb 12.8 oz Physical Exam 2 Narrative: General : Patient is well developed , he is somnolent but arousable and is able to maintain a conversation with me. Head : Normal cephalic, a-traumatic. Nose : Mucous membranes are without erythema. Lungs : Equal chest rise bilaterally, no use of accessory muscles, trachea is midline. CV : Rate and rhythm are normal. Abdomen : Soft, ND, NT, no g/r/m Extremities : No edema. Upper extremities are normal bilaterally. Back : non-tender to palpation, no CVA tenderness. Urinary Catheter Management: Conroy: Cath Placed During This Visit: yes Reason for Continuing Indwelling Catheter: Acute Urinary Retention or Obstruction Urinary Catheter Date of Insertion: 12/23/23 Urinary Catheter Time of Insertion: 06:23 Data 12/23/23 02:42 12/23/23 02:42 Micro: Microbiology 12/23/23 08:10 Occult Blood (FIT) - Final Stool Routine Collection A&P Assessment and plan (1) Upper GI bleeding: Plan After a full history, physical examination and review of all available clinical data. Assessment. Patient with chronic anemia and now with witnessed black tarry stools, likely source of anemia is in the upper GI tract. An upper endoscopy is indicated. I have explained to the patient that due to the fact that he is taking Plavix and he has only been held for 2 days I might not be able to take biopsies during these upper endoscopy but in the case of any significant bleeding I will be able to do therapeutic interventions that may prevent him from having further bleeding. I have discussed all the risk and benefits of the upper endoscopy including the risk of perforation of the esophagus, stomach, duodenum or colon requiring surgical intervention and transfer to higher level of care. Patient shows understanding and agrees to proceed. We will book the procedure for tomorrow, patient is to be n.p.o. after midnight. In the interim patient should be initiated on twice a day PPI. Consult Attestations 2 Medical Necessity Statement: Per medical team Coding Level of Care Code 19949 Diagnoses Upper GI bleeding K92.2
--- NOTE | 2023-12-23 10:59 | P.PN_ITS ---
Subjective 2 Subjective: She had melanotic stools today Requested EGD Dr. Petit will plan for endoscopy by tomorrow Last dose of Eliquis was on Vitals/I&O/Wt Last Vital Signs Temp 97.5 F L 12/23/23 08:09 Pulse 83 12/23/23 08:09 Resp 17 12/23/23 08:09 BP 153/82 12/23/23 08:09 Pulse Ox 95 12/23/23 08:09 O2 Del Method Room Air 12/23/23 08:09 12/22/23 12/23/23 12/23/23 22:59 06:59 14:59 Intake Total 1126.667 / 1126.667 668.333 / 1795.000 695.000 / 695.000 Output Total 600 / 600 275 / 875 Balance 526.667 / 526.667 393.333 / 920.000 695.000 / 695.000 Weight last 48 hrs Weight 76.912 kg Weight 77.474 kg Physical Exam 2 Narrative: Patient is lethargic and fatigued Nonfocal neuroexam Currently on room air Hemodynamically stable Pleasant and cooperative S1, S2 Urinary Catheter Management: Conroy: Cath Placed During This Visit: yes Reason for Continuing Indwelling Catheter: Acute Urinary Retention or Obstruction Urinary Catheter Date of Insertion: 12/23/23 Urinary Catheter Time of Insertion: 06:23 Data 12/23/23 02:42 12/23/23 02:42 Micro: Microbiology 12/23/23 08:10 Occult Blood (FIT) - Final Stool Routine Collection A&P Assessment and plan (1) Dyslipidemia: (2) Hypogonadism in male: (3) Upper GI bleeding: (4) Abdominal pain: Qualifiers: Abdominal location: unspecified location Qualified Code(s): R10.9 - Unspecified abdominal pain (5) Erectile dysfunction: (6) Iron deficiency anemia: Plan Will give him 1 bag of iron Another unit of PRBC to keep hemoglobin above 9 Hold Plavix Plan for EGD by tomorrow Hypogonadism Extreme lethargy and fatigue Hemodynamically stable Plan to discharge by Monday Spoke with general surgery plan for EGD tomorrow Clear liquid today n.p.o. after midnight For hypertension patient is on high-dose amlodipine along Coreg and duloxetine may be able to add lisinopril low-dose Attestations 2 Medical Necessity Statement*: Continue medical management Diagnoses Dyslipidemia E78.5 Hypogonadism in male E29.1 Upper GI bleeding K92.2 Abdominal pain R10.9 Abdominal location: unspecified location Erectile dysfunction N52.9 Iron deficiency anemia D50.9
[2023-12-23] MEDS: iron sucrose 200 MG in sodium chloride 0.9% (100 ml) 100 ML 220 MG IV (14:09)
[2023-12-23] MEDS: sodium chloride 0.9% 1,000 ML 30 ML IV (14:10)
[2023-12-23] MEDS: BuSPIRONE 10 mg Tablet PO (21:11)
[2023-12-23] MEDS: trazodone 100 mg Tablet PO (21:11)
[2023-12-24] VITALS (10 sets, daily range): BP systolic 113–164; BP diastolic 64–88; PULSE 74–88; RESP 16–24; TEMP 36.4–37.4; O2SAT 91–94; BMI 27.6
[2023-12-24] MEDS: morphine 4 mg/mL SDV 1 mL IVP (01:02)
[2023-12-24] MEDS: pantoprazole 40 mg SDV IVP (03:00)
[2023-12-24] MEDS: HYDROcodone-acetaminophen 10-325 mg Tablet 1 TAB PO ×2 (03:10→10:21)
[2023-12-24] MEDS: BuSPIRONE 10 mg Tablet PO ×2 (03:10→10:22)
[2023-12-24 04:28] LABS: Basophils # 0.1 10^3/uL (0.0-0.1); Basophils % 0.5 %; Eosinophils # 0.2 10^3/uL (0.0-0.8); Eosinophils % 1.5 %; Hematocrit 27.7 % (37-53); Lymphocytes # 1.1 10^3/uL (0.8-4.8); Lymphocytes % 10.4 %; Mean Corpuscular HGB Conc 30.7 g/dL (30-55); Mean Corpuscular Hemoglobin 25.2 pg (27-33); Mean Corpuscular Volume 82.2 fl (82-101); Monocytes # 0.5 10^3/uL (0.2-0.9); Monocytes % 4.5 %; Neutrophils # 7.85 10^3/uL (1.8-7.7); Neutrophils % 73.9 %; Nucleated Red Blood Cells # 0.1 /100WBC; Nucleated Red Blood Cells % 0.5 %; Platelet Count 132 10^3/cmm (157-399); Red Blood Count 3.37 10^6/uL (3.85-5.65); Red Cell Distribution Width 18.7 % (12.1-15.1); White Blood Count 10.62 10^3/uL (3.29-11.43)
--- NOTE | 2023-12-24 06:28 | P.HPUD_ITS ---
Surgery/Procedure H&P Update DATE OF PROCEDURE: December 24, 2023 DATE H&P PERFORMED: 12/23/23 H&P UPDATE INFORMATION: I have reviewed H&P completed within last 30 days, I have examined patient prior to procedure, No changes to prior documentation and H&P is in [facility] EMR on date indicated PLANNED PROCEDURE: Operation Date: 12/24/23 08:30 Proposed Procedures p Esophagoscopy(Not Applicable) - Perry Hinojosa MD
--- NOTE | 2023-12-24 07:57 | P.ANESASSM_ITS ---
Pre-Anesthetic Assessment Height/Weight: Height 1.68 m Weight 77.7 kg Temp Pulse Resp BP Pulse Ox O2 Del Method 98.2 F 87 17 147/67 93 Room Air 12/24/23 03:54 12/24/23 03:54 12/24/23 03:54 12/24/23 03:54 12/24/23 03:54 12/24/23 03:54 Operation Date: 12/24/23 08:30 Proposed Procedures p Esophagoscopy(Not Applicable) - Perry Hinojosa MD Was Beta Isidro taken within 24 hours: Yes Was Clonidine taken within 24 hours: N/A Last intake: Intake Last Liquid Date 12/23/23 Last Liquid Time 23:59 Last Solid Date 12/22/23 Last Solid Time 23:59 Social Tobacco 2-3 pack(s) per day Heavy smoker 2-3 ppd x 20 years Exam alert and oriented x 3 Airway Submandibular: within normal limits Cervical ROM: within normal limits Mallampati: Class II Pulmonary Chronic Obstructive Pulmonary Disease CV/HEM Coronary Artery Disease Hx coronary stent. Has infrarenal AAA, small vessel occlusive disease. Echo 2022: CONCLUSIONS LV systolic function is normal with EF of 55-60% Moderate mitral regurgitation Mlild tricuspid regurgitation Compared to prior echocardiogram from 08/30/2022, no significant changes are seen. GI Gastroesophageal Reflux Disease Metabolic Hyperlipidemia Musc/skel Lower Back Pain Anesthetic Plan ASA status: 3 Anesthesia: MAC Risk of > 500 ml blood loss (7ml/kg in children): No Medications/Allergies Home Medications Medication Instructions Recorded Confirmed Last Taken Type clopidogrel 75 mg tablet (Plavix) 75 mg PO DAILY #7 tabs 08/20/21 12/22/23 08/29/22 Rx buspirone 10 mg tablet 10 mg PO QID PRN Anxiety 08/30/22 12/22/23 08/30/22 History trazodone 100 mg tablet 100 mg PO BEDTIME 08/30/22 12/22/23 12/21/23 History amlodipine 10 mg tablet 10 mg PO DAILY 30 days #30 tabs 09/03/22 12/22/23 12/22/23 Rx gabapentin 800 mg tablet 800 mg PO TID 04/28/23 12/22/23 12/22/23 History hydrocodone 10 mg-acetaminophen 1 tab PO Q4H PRN Pain 04/28/23 12/22/23 Unknown History 325 mg tablet nitroglycerin 0.4 mg sublingual 0.4 mg sublingual Q5M PRN Chest 04/28/23 12/22/23 Unknown History tablet (Nitrostat) Pain ranolazine 500 mg tablet,extended 1,000 mg (2 x 500 mg) PO 04/28/23 12/22/23 12/22/23 Rx release,12 hr BID@0900,2100 #120 tabs atorvastatin 40 mg tablet (Lipitor) 40 mg PO DAILY #90 tabs 07/24/23 12/22/23 12/21/23 Rx carvedilol 25 mg tablet 25 mg PO BID 90 days #180 tabs 07/24/23 12/22/23 12/22/23 Rx famotidine 20 mg tablet 20 mg PO DAILY 08/31/23 12/22/23 12/22/23 History omeprazole 40 mg capsule,delayed 40 mg PO DAILY 08/31/23 12/22/23 12/22/23 History release ibuprofen 800 mg tablet 800 mg PO Q8H PRN pain #20 tabs 11/14/23 12/22/23 Unknown Rx folic acid 1 mg tablet 1 mg PO DAILY #30 tabs 12/01/23 12/22/23 12/22/23 Rx potassium chloride 20 mEq oral 20 meq PO BID #10 ea 12/19/23 12/22/23 12/22/23 Rx packet Allergies Allergy/AdvReac Type Severity Reaction Status Date / Time tramadol Allergy ADR-Confusi Verified 12/22/23 13:50 on naproxen AdvReac Intermediate Makes sick Verified 12/22/23 10:26 to stomach Current Medications Generic Name Dose Route Start Last Admin Trade Name Shankarq PRN Reason Stop Dose Admin Acetaminophen 650 mg 12/22/23 13:31 12/23/23 00:06 Acetaminophen 325 Mg Tablet PO 650 mg Q6H PRN Administration Mild/Mod Pain Or Temp >/= 101 Hydrocodone Bitart/Acetaminophen 1 tab 12/22/23 16:07 12/24/23 03:10 Hydrocodone-Acetaminophen 10-325 Mg Tablet PO 1 tab Q4H PRN Administration Pain Amlodipine Besylate 10 mg 12/23/23 09:00 12/23/23 08:53 Amlodipine 10 Mg Tablet PO 10 mg DAILY WAYLON Administration Atorvastatin Calcium 40 mg 12/23/23 09:00 12/23/23 08:53 Atorvastatin 40 Mg Tablet PO 40 mg DAILY WAYLON Administration Buspirone HCl 10 mg 12/22/23 16:07 12/24/23 03:10 Buspirone 10 Mg Tablet PO 10 mg QID PRN Administration Anxiety Carvedilol 25 mg 12/22/23 18:00 12/23/23 17:13 Carvedilol 25 Mg Tablet PO 25 mg BID WAYLON Administration Gabapentin 300 mg 12/22/23 21:00 12/23/23 21:11 Gabapentin 300 Mg Capsule PO 300 mg TID WAYLON Administration Sodium Chloride 1,000 mls @ 30 mls/hr 12/23/23 10:09 12/23/23 14:10 Sodium Chloride 0.9% IV 12/24/23 10:08 30 mls/hr .Q24H ONE Administration Morphine Sulfate 4 mg 12/24/23 00:46 12/24/23 01:02 Morphine 4 Mg/Ml Sdv 1 Ml IVP 12/26/23 00:45 4 mg Q4H PRN Administration SEVERE PAIN Nicotine 1 patch 12/22/23 13:40 12/23/23 08:53 Nicotine 21 Mg Patch TRANSDERMA 1 patch DAILY WAYLON Administration Pantoprazole Sodium 40 mg 12/22/23 13:45 12/24/23 03:00 Pantoprazole 40 Mg Sdv IVP 40 mg Q12H WAYLON Administration Ranolazine 1,000 mg 12/22/23 21:00 12/23/23 21:11 Ranolazine (12hr) 500 Mg Tablet PO 1,000 mg BID@0900,2100 WAYLON Administration Trazodone HCl 100 mg 12/22/23 21:00 12/23/23 21:11 Trazodone 100 Mg Tablet PO 100 mg BEDTIME WAYLON Administration PFSH Anesthesia Medical History (Updated 12/23/23 @ 10:32 by Perry Hinojosa MD) Back pain, chronic GERD (gastroesophageal reflux disease) Smoking Iron deficiency anemia Decreased libido Low normal testosterone, 312 in 2021 on testosterone replacement therapy. Urolithiasis Arterial fibromuscular dysplasia Abnormal nuclear stress test Angina pectoris, unstable Erectile dysfunction Dyslipidemia Celiac artery stenosis Hypertension Nephrolithiasis Abdominal aortic aneurysm Coronary artery disease Nicotine dependence, unspecified, uncomplicated Major depressive disorder, recurrent, moderate Generalized anxiety disorder High blood pressure Surgical History H/O heart artery stent Family History Other CAD (coronary artery disease) Denies family history of Diabetes Hyperlipidemia Hypertension Social History Smoking and tobacco/nicotine status: current every day tobacco/nicotine user cigarettes Packs smoked per day: 0.75 Years cigarettes smoked: 20 Quit status (tobacco/nicotine): has tried quititng Number of times tried to quit tobacco: 2 Second hand smoke exposure: Yes Alcohol intake: former Substance/Drug Use: never Household members: spouse Marital status: Current occupational status: disabled Data Anesthesia 12/24/23 02:28 12/23/23 02:42 Short CBC 12/23/23 12/24/23 Range/Units 02:42 02:28 WBC 10.67 10.62 (3.29-11.43) 10^3/uL Hgb 8.10 L 8.50 L (11.27-16.99) g/dL Hct 27.0 L 27.7 L (37-53) % MCV 83.3 82.2 (82-101) fl Plt Count 164 132 L (157-399) 10^3/cmm Neut % (Auto) 75.7 73.9 % Neut # (Auto) 8.08 H 7.85 H (1.8-7.7) 10^3/uL BMP 12/23/23 02:42 Sodium 137 Potassium 3.3 L Chloride 104 Carbon Dioxide 16 L BUN 13 Creatinine 0.9 Glucose 112 Calcium 9.8 Liver Function 12/23/23 Range/Units 02:42 Total Bilirubin 0.8 (0.15-1.2) mg/dL AST 14 (0-40) U/L ALT 7 (0-41) U/L Alkaline Phosphatase 160 H (40-130) U/L Albumin 2.6 L (3.5-5.2) g/dL Urine 12/22/23 12/23/23 Range/Units 18:30 02:40 Urine Color [place] Yellow (Yellow) Urine Appearance Clear Clear (CLEAR) Urine pH 5 5 (5-7) Ur Specific [place] 1.020 1.015 (1.005-1.030) Urine Protein 1+ H Trace (Negative) Urine Glucose (UA) Norm Norm (Normal) Urine Ketones Negative Negative (Negative) Urine Nitrate Negative Negative (Negative) Urine Bilirubin Neg Neg (Negative) Ur Leukocyte Esterase Negative Negative (Negative) Urine RBC 0-4 H (0-2) /hpf Urine WBC 0-4 H (0-5) /hpf Blood Bank 12/22/23 09:02 Blood Type O Positive Rho(D) Type Rh positive Antibody Screen Negative Coags 12/22/23 08:28 ESR 49 H C-Reactive Protein 349.3 H Microbiology 12/23/23 08:10 Occult Blood (FIT) - Final Stool Routine Collection Cardiac Studies: 2 Echocardiogram 04/28/23 Sestamibi Stress Test (Cardiology) 09/01
--- NOTE | 2023-12-24 08:57 | PC.NURSE ---
pt taken for egd
--- NOTE | 2023-12-24 09:30 | PM.MISC ---
Miscellaneous Note Purpose of Documentation: Update on patient care Note: Upper endoscopy was done today. There was no evidence of active bleeding. There was significant gastritis acute erythematous at the level of the antrum and nodular at the level of the body. Biopsies were taken. ? Patient should be started on pantoprazole twice a day and Carafate 2 or 3 times a day liquid. ? Patient can follow-up with me in 2 weeks for results of the biopsies. ? Workup should be completed with a colonoscopy as outpatient, I will schedule the study when the patient comes for follow-up.
--- NOTE | 2023-12-24 10:29 | PM.DCS ---
Discharge Providers Date of Admission: 12/22/23 12:44 Date of Discharge: December 24, 2023 Attending Provider at Admission: Eleazar Rodriguez MD Attending Provider at Discharge: Jennifer Girard MD Primary Care Provider: Riccardo Wright MD Diagnoses at Discharge Discharge Diagnosis (1) Dyslipidemia: Status: Acute (2) Hypogonadism in male: Status: Acute (3) Upper GI bleeding: Status: Acute (4) Abdominal pain: Status: Acute Qualifiers: Abdominal location: unspecified location Qualified Code(s): R10.9 - Unspecified abdominal pain (5) Erectile dysfunction: Status: Acute (6) Iron deficiency anemia: Status: Acute Reason for Visit Reason for Visit: Symptomatic Anemia Hospital Course Hospital Course 43 male who was admitted for management valuation of acute normocytic anemia patient was given 2 unit PRBC his hemoglobin improved from 6.6-8.5, remained hemodynamically stable, patient started experiencing melanotic stools, general surgery was consulted for EGD, EGD showed mild gastritis, patient will be given sucralfate along Protonix, he will follow-up with Dr. [facility] please note he has severe additions anemia he received 1 bag of iron as well during hospitalization, he will need colonoscopy outpatient I will have him follow-up with general surgery in next 7 to 10 days Plavix may be resumed at the time of discharge Physical Exam Narrative: Euvolemic Pleasant cough 48 lethargic Referring the bedside DC 50 S1, S2 Doing well on room air Urinary Catheter Management: [place]: Cath Placed During This Visit: yes, but has since been removed by the nurse Reason for Continuing Indwelling Catheter: Acute Urinary Retention or Obstruction Urinary Catheter Date of Insertion: 12/23/23 Urinary Catheter Time of Insertion: 06:23 Date Urinary Catheter Removed: 12/23/23 Time Urinary Catheter Discontinued: 10:09 Discharge Data Studies Completed and Pending Completed Studies During Hospitalization Category Date Time Status CT head wo con* [id number] Routine Cat Scan 12/22/23 13:37 Completed XR chest 1V portable [id number] Routine Exams 12/22/23 13:31 Completed Pending at discharge Category Date Time Status Miscellaneous Test Routine Lab 12/22/23 23:38 Ordered Pathology: Surgical [PTH] Routine Pth 12/24/23 09:26 Ordered Laboratory Results WBC 10.62 10^3/uL (3.29-11.43) 12/24/23 02:28 RBC 3.37 10^6/uL (3.85-5.65) L 12/24/23 02:28 Hgb 8.50 g/dL (11.27-16.99) L 12/24/23 02:28 Hct 27.7 % (37-53) L 12/24/23 02:28 MCV 82.2 fl (82-101) 12/24/23 02:28 MCH 25.2 pg (27-33) L 12/24/23 02:28 MCHC 30.7 g/dL (30-55) 12/24/23 02:28 RDW 18.7 % (12.1-15.1) H 12/24/23 02:28 Plt Count 132 10^3/cmm (157-399) L 12/24/23 02:28 MPV Not Reportable 12/24/23 02:28 Neut % (Auto) 73.9 % 12/24/23 02:28 Lymph % (Auto) 10.4 % 12/24/23 02:28 [place] % (Auto) 4.5 % 12/24/23 02:28 Eos % (Auto) 1.5 % 12/24/23 02:28 Baso % (Auto) 0.5 % 12/24/23 02:28 Reticulocyte % (Auto) 1.3 % (0.5-2.0) 12/22/23 08:28 Neut # (Auto) 7.85 10^3/uL (1.8-7.7) H 12/24/23 02:28 Lymph # (Auto) 1.1 10^3/uL (0.8-4.8) 12/24/23 02:28 [place] # (Auto) 0.5 10^3/uL (0.2-0.9) 12/24/23 02:28 Eos # (Auto) 0.2 10^3/uL (0.0-0.8) 12/24/23 02:28 Baso # (Auto) 0.1 10^3/uL (0.0-0.1) 12/24/23 02:28 Nucleated RBC % (auto) 0.5 % 12/24/23 02:28 Nucleated RBCs # 0.1 /100WBC 12/24/23 02:28 Peripher Smr Path Cons Sent for review 12/22/23 08:28 ESR 49 mm/hr (0-10) H 12/22/23 08:28 Haptoglobin 583.0 mg/L (30-200) H 12/22/23 08:28 Sodium 137 mmol/L (136-145) 12/23/23 02:42 Potassium 3.3 mmol/L (3.5-5.1) L 12/23/23 02:42 Chloride 104 mmol/L (98-107) 12/23/23 02:42 Carbon Dioxide 16 mmol/L (22-29) L 12/23/23 02:42 Anion Gap 20.3 (5-19) H 12/23/23 02:42 BUN 13 mg/dL (6-20) 12/23/23 02:42 Creatinine 0.9 mg/dL (0.7-1.2) 12/23/23 02:42 GFR Calculation 92.1 mL/min (90-130) 12/23/23 02:42 Glucose 112 mg/dL (65-115) 12/23/23 02:42 Calculated Osmolality 285 mOsm/kg (285-295) 12/23/23 02:42 Calcium 9.8 mg/dL (8.5-10.5) 12/23/23 02:42 Magnesium 2.0 mg/dL (1.7-2.3) 12/22/23 08:28 Total Bilirubin 0.8 mg/dL (0.15-1.2) 12/23/23 02:42 AST 14 U/L (0-40) 12/23/23 02:42 ALT 7 U/L (0-41) 12/23/23 02:42 Alkaline Phosphatase 160 U/L (40-130) H 12/23/23 02:42 Lactate Dehydrogenase 619 U/L (135-225) H 12/22/23 08:28 C-Reactive Protein 349.3 mg/L (0.0-4.9) H 12/22/23 08:28 Total Protein 7.0 g/dL (6.6-8.7) 12/23/23 02:42 Albumin 2.6 g/dL (3.5-5.2) L 12/23/23 02:42 Globulin 4.4 g/dL (1.3-4.6) 12/23/23 02:42 Vitamin B12 1331 pg/mL (232-1245) H 12/22/23 08:28 Folate 6.4 ng/mL (4.5-32.2) 12/22/23 15:07 TSH 0.72 uIU/mL (0.27-4.20) 12/22/23 08:28 Urine Color Yellow (Yellow) 12/23/23 02:40 Urine Appearance Clear (CLEAR) 12/23/23 02:40 Urine pH 5 (5-7) 12/23/23 02:40 Ur Specific [place] 1.015 (1.005-1.030) 12/23/23 02:40 Urine Protein Trace (Negative) 12/23/23 02:40 Urine Glucose (UA) Norm (Normal) 12/23/23 02:40 Urine Ketones Negative (Negative) 12/23/23 02:40 Urine Blood Neg (Negative) 12/23/23 02:40 Urine Nitrate Negative (Negative) 12/23/23 02:40 Urine Bilirubin Neg (Negative) 12/23/23 02:40 Urine Urobilinogen Norm mg/dL (Negative) 12/23/23 02:40 Ur Leukocyte Esterase Negative (Negative) 12/23/23 02:40 Urine RBC 0-4 /hpf (0-2) H 12/22/23 18:30 Urine WBC 0-4 /hpf (0-5) H 12/22/23 18:30 Ur Squamous Epith Cells 0-4 /hpf (0-5) H 12/22/23 18:30 Amorphous Sediment Trace /hpf 12/22/23 18:30 Urine Bacteria Trace /hpf (NONE) 12/22/23 18:30 Urine Mucus Trace /hpf 12/22/23 18:30 Blood Type O Positive 12/22/23 09:02 Rho(D) Type Rh positive 12/22/23 09:02 Antibody Screen Negative 12/22/23 09:02 JAVI, Poly Interpret Negative 12/22/23 09:02 Crossmatch See Detail 12/22/23 09:02 Vitals Last Vital Signs Temp 98.5 F 12/24/23 10:24 Pulse 88 12/24/23 10:24 Resp 18 12/24/23 10:24 BP 164/85 12/24/23 10:24 Pulse Ox 93 12/24/23 10:24 O2 Del Method Room Air 12/24/23 10:24 O2 Flow Rate 6 12/24/23 09:30 Discharge Plan Discharge Patient Disposition: Home Condition: Stable Prescriptions: New sucralfate 1 gram tablet 1 g PO BID 84 Days Qty: 168 0RF Continued atorvastatin [Lipitor] 40 mg tablet 40 mg PO DAILY Qty: 90 3RF carvedilol 25 mg tablet 25 mg PO BID 90 Days Qty: 180 3RF Rx Instructions: must administer with a meal/food famotidine 20 mg tablet 20 mg PO DAILY clopidogrel [Plavix] 75 mg tablet 75 mg PO DAILY Qty: 7 0RF Rx Instructions: Patient needs to be seen for further refills folic acid 1 mg tablet 1 mg PO DAILY Qty: 30 1RF trazodone 100 mg tablet 100 mg PO BEDTIME buspirone 10 mg tablet 10 mg PO QID PRN (Reason: Anxiety) amlodipine 10 mg Tablet 10 mg PO DAILY 30 Days Qty: 30 1RF hydrocodone-acetaminophen 10-325 mg tablet 1 tab PO Q4H PRN (Reason: Pain) gabapentin 800 mg tablet 800 mg PO TID nitroglycerin [Nitrostat] 0.4 mg Tablet, Sublingual 0.4 mg SUBLINGUAL Q5M PRN (Reason: Chest Pain) Rx Instructions: do not exceed 3 doses per episode ranolazine 500 mg Tablet Extended Release 12 Hr 1,000 mg PO BID@0900,2100 Qty: 120 0RF Changed omeprazole 40 mg capsule,delayed release(DR/EC) 40 mg PO BIDWMEAL Qty: 112 0RF potassium chloride 20 mEq packet 20 meq PO BEDTIME Qty: 10 0RF Discontinued ibuprofen 800 mg tablet 800 mg PO Q8H PRN (Reason: pain) Qty: 20 0RF Discharge Orders: Discharge Order (Routine); Ordered 12/24/23 Ordered By: Jennifer Girard Referrals: Riccardo Wright MD [Primary Care Provider] - Gwyn Pierec MD [Hospitalist] - Patient Instructions: GI Discharge Instructions, Opioid Safety Discharge Attestations Time Spent in Discharge Care*: greater than 30 min Quality Metrics Clinical Quality Measures [ No reported AMI, CVA or VTE this stay] Coding Level of Care Code Acute Code for g Fwd Diagnoses Dyslipidemia E78.5 Hypogonadism in male E29.1 Upper GI bleeding K92.2 Abdominal pain R10.9 Abdominal location: unspecified location Erectile dysfunction N52.9 Iron deficiency anemia D50.9
--- NOTE | 2023-12-25 07:43 | ANE.PACU2 ---
Inpatient post-anesthesia follow up: Airway intact: Yes Vital signs: Temperature 97.5 F Pulse Rate 78 Respiratory Rate 18 Blood Pressure 151/79 Pulse Oximetry 94 Oxygen Delivery Me thod Room Air Oxygen Flow Rate 6 Fraction of Inspir ed Oxygen Hydration adequate: Yes Nausea and vomiting: No Pain level: 3 Pain level: Chronic pain Mental status: Baseline
== END 2023-12-24 13:05 | disposition home or self-care (01) ==
PROVIDERS: Internal Medicine; Surgery; Admitting Provider Internal Medicine; PCP Family Medicine; Visit Provider Internal Medicine
PROC: 0DJ08ZZ Inspection of Upper Intestinal Tract, Via Natural or Artificial Opening Endoscopic (ICD-10-PCS; principal; 2023-12-24 08:30)
DX: D50.9 Iron deficiency anemia, unspecified (principal); N52.9 Male erectile dysfunction, unspecified; R10.9 Unspecified abdominal pain; K92.2 Gastrointestinal hemorrhage, unspecified; K29.30 Chronic superficial gastritis without bleeding; E29.1 Testicular hypofunction; E78.5 Hyperlipidemia, unspecified; J44.9 Chronic obstructive pulmonary disease, unspecified; I25.10 Atherosclerotic heart disease of native coronary artery without angina pectoris; Z95.5 Presence of coronary angioplasty implant and graft; K21.9 Gastro-esophageal reflux disease without esophagitis; F17.210 Nicotine dependence, cigarettes, uncomplicated; F41.1 Generalized anxiety disorder; K59.00 Constipation, unspecified; E87.29 Other acidosis
CPT/HCPCS: 36415; 36430; 43239; 51702; 70450; 71045; 80053; 80503; 81001; 81003; 82274; 82607; 82728; 82746; 83010; 83540; 83550; 83615; 83735; 84443; 85007; 85025; 85045; 85651; 86140; 86850; 86880; 86900; 86920; 88305; 99214; C9113; G0378; G0379; J1756; J2270; J2704; J3010; J3480; J7030; P9016; P9058

== ENCOUNTER 2023-12-26 09:10 | Outpatient (CLI) | payer MEDICARE, SELFPAY ==
--- NOTE | 2023-12-26 09:22 | MR_ITS ---
WS: [id number] MRI LUMBAR SPINE NONCONTRAST HISTORY: LUMBAR BACK PAIN W/RADICULOPATHY COMPARISON: 08/09/2018 TECHNIQUE: Sagittal and axial multisequence imaging is submitted. This is an extremely difficult evaluation of the lumbar spine due to motion artifact on numerous sequ ences. Numerous additional sequences were attempted to achieve an adequate study. Normal posterior lumbar alignment. Variable signal within the vertebral bodies in part is due to arlyn on. No compression fracture. Seen only on the sagittal STIR sequence is marrow edema in the S2 and S3 segments and possibly the S4 segment and a small amount of presacral edema. Mild disc space narrowing at L5-S1. Conus terminates normally at L1. L1-L2: Normal. L2-L3: Facet arthritis. No stenosis. L3-L4: Bilateral facet arthritis. No high-grade stenosis. L4-L5: No high-grade stenosis. Bilateral facet arthritis. L5-S1: Marked bilateral facet joint arthritis and disc space narrowing. Asymmetric disc bulging to th e RIGHT. There is contact on the RIGHT S1 nerve root by the disc. Mild progression since the prior st udy. There is a lobulated cystic mass in the RIGHT pelvis closely associated with the SI joint. Multilocul ated cystic mass measures at least 1.8 x 2.5 cm. Extends close to the SI joint and there is fluid in the SI joint. There is additional increased T2 signal in the RIGHT ilium with an adjacent nearly isoe choic mass external to the ilium measuring 1.7 x 3.0 cm. Splenomegaly, 16.1 cm. IMPRESSION: 1. Marrow edema in the visualized sacrum, S2, S3 and a portion of S4 with presacral edema. Consistent with posttraumatic marrow injury. 2. Subtle marrow edema in the RIGHT ilium with an adjacent isoechoic mass in the gluteus muscle which may be a hematoma with associated posttraumatic injury. Suggest follow-up pelvic MRI with and withou t contrast in 6 to 8 weeks to ensure this mass resolves. Patient will need to remain still for furthe r evaluation. 3. Lobulated cystic mass arising from the RIGHT SI joint. Probably a synovial cyst. This can also be reevaluated in 6 to 8 weeks. 4. Asymmetric disc bulging at L5-S1 with mild contact on the RIGHT S1 nerve root.
== END 2023-12-26 09:11 | disposition home or self-care (01) ==
PROVIDERS: PCP Family Medicine; Visit Provider Family Medicine
DX: M51.37 Other intervertebral disc degeneration, lumbosacral region (principal); M47.27 Other spondylosis with radiculopathy, lumbosacral region; R19.09 Other intra-abdominal and pelvic swelling, mass and lump; R60.9 Edema, unspecified
CPT/HCPCS: 72148; 99204

== ENCOUNTER 2023-12-29 12:14 | Emergency (ER) | payer MEDICARE, SELFPAY ==
[2023-12-29] VITALS (7 sets, daily range): BP systolic 133–168; BP diastolic 87–98; PULSE 88–100; RESP 16–20; TEMP 36.7; O2SAT 93–97
--- NOTE | 2023-12-29 12:44 | W.ED.WEAKNES ---
HPI - Weakness General: Chief complaint: Weakness Stated complaint: sent by for blood check Time Seen by Provider: 12/29/23 12:32 PFSH ED PFSH: Medical History (Updated 12/25/23 @ 00:00 by ELLEN Manning) Upper GI bleeding Hallucination Anemia Hypokalemia Hypogonadism in male Abdominal pain Back pain, chronic GERD (gastroesophageal reflux disease) Smoking Iron deficiency anemia Decreased libido Low normal testosterone, 312 in 2021 on testosterone replacement therapy. Urolithiasis Arterial fibromuscular dysplasia Abnormal nuclear stress test Angina pectoris, unstable Erectile dysfunction Dyslipidemia Celiac artery stenosis Hypertension Nephrolithiasis Abdominal aortic aneurysm Coronary artery disease Nicotine dependence, unspecified, uncomplicated Major depressive disorder, recurrent, moderate Generalized anxiety disorder High blood pressure Surgical History H/O heart artery stent Family History Other CAD (coronary artery disease) Denies family history of Diabetes Hyperlipidemia Hypertension Social History Smoking and tobacco/nicotine status: current every day tobacco/nicotine user cigarettes Packs smoked per day: 0.75 Years cigarettes smoked: 20 Quit status (tobacco/nicotine): has tried quititng Number of times tried to quit tobacco: 2 Second hand smoke exposure: Yes Alcohol intake: former Substance/Drug Use: never Household members: spouse Marital status: Current occupational status: disabled Course Vital Signs: Vital signs: Vital Signs Temperature 98.0 F 12/29/23 12:16 Pulse Rate 100 12/29/23 12:16 Respiratory Rate 16 12/29/23 12:16 Blood Pressure 133/87 12/29/23 12:16 Pulse Oximetry 96 12/29/23 12:16 Oxygen Delivery Me thod Room Air 12/29/23 12:16 Discharge Plan Discharge Condition: Stable Prescriptions: No Action atorvastatin [Lipitor] 40 mg tablet 40 mg PO DAILY Qty: 90 3RF carvedilol 25 mg tablet 25 mg PO BID 90 Days Qty: 180 3RF Rx Instructions: must administer with a meal/food famotidine 20 mg tablet 20 mg PO DAILY clopidogrel [Plavix] 75 mg tablet 75 mg PO DAILY Qty: 7 0RF Rx Instructions: Patient needs to be seen for further refills folic acid 1 mg tablet 1 mg PO DAILY Qty: 30 1RF trazodone 100 mg tablet 100 mg PO BEDTIME buspirone 10 mg tablet 10 mg PO QID PRN (Reason: Anxiety) amlodipine 10 mg Tablet 10 mg PO DAILY 30 Days Qty: 30 1RF hydrocodone-acetaminophen 10-325 mg tablet 1 tab PO Q4H PRN (Reason: Pain) gabapentin 800 mg tablet 800 mg PO TID nitroglycerin [Nitrostat] 0.4 mg Tablet, Sublingual 0.4 mg SUBLINGUAL Q5M PRN (Reason: Chest Pain) Rx Instructions: do not exceed 3 doses per episode ranolazine 500 mg Tablet Extended Release 12 Hr 1,000 mg PO BID@0900,2100 Qty: 120 0RF sucralfate 1 gram tablet 1 g PO BID 84 Days Qty: 168 0RF potassium chloride 20 mEq packet 20 meq PO BEDTIME Qty: 10 0RF omeprazole 40 mg capsule,delayed release(DR/EC) 40 mg PO BIDWMEAL Qty: 112 0RF Referrals: Riccardo Wright MD [Primary Care Provider] - Coding Level of Care Code ED 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
--- NOTE | 2023-12-29 12:54 | XR_ITS ---
WS: [id number] Right knee, 3 views, 12/29/2023 Clinical Data: trauma Comparison: None. Findings: No fractures or dislocations are seen. The joint spaces are normal. The patella is intact. The soft t issues are unremarkable. Impression: Negative right knee. Kellgren-Russell Classification: grade 0 (none): definite absence of x-ray changes of osteoarthritis
--- NOTE | 2023-12-29 12:54 | XR_ITS ---
WS: [id number] Right leg including the tibia and fibula, AP and lateral views, 12/29/2023 Clinical Data: trauma Comparison: None. Findings: No fractures or dislocations are seen. The tibia and fibula are intact. The soft tissues are normal. Impression: Negative right leg.
--- NOTE | 2023-12-29 12:58 | ED_ITS ---
Documented by User: SAKINA Rashid 12/29/23 15:56 HPI - General Adult 2 General: Chief complaint: Weakness Stated complaint: sent by for blood check Time Seen by Provider: 12/29/23 12:32 Source: patient Mode of arrival: ambulatory Limitations: no limitations History of Present Illness: Patient is a 43-year-old male with an extensive past medical history including CAD, HTN, HLD, current tobacco use, anemia here for complaints of dizziness and continued weakness since discharge. Patient was admitted to the hospital via direct admit from hem/onc just a week or so ago for anemia. He was given 2 units of blood. Hemoglobin upon discharge was 8.5. While in the hospital he was evaluated by general surgeon Dr. Hinojosa performed an endoscopy without any evidence for active bleeding. He is complaining of pain to his right lower leg but states he has had back and leg pain present since October following a fall. He has been evaluated for this multiple times. He has had x-ray and CT imaging performed. He has had a lumbar MRI performed by his PCP. He states he has follow-up with Dr. Santiago on 01/01 for this. Denies chest pain, shortness of breath, difficulty breathing, palpitations. He saw primary care today, Dr. Wright, who wanted patient to come back to the ED for further evaluation. Onset (ago): day(s) Relieving factors: none Exacerbating factors: none Associated symptoms: Deny chest pain, dyspnea, headache(s), malaise, nausea, rash, palpitations, syncope or vomiting Treatments prior to arrival: none Review of Systems 2 Const: Denies: fever(s), chills, body aches, fatigue or malaise Eyes: Denies: change in vision or blurry vision Card: Denies: chest pain, palpitations, irregular heart rhythm, lightheadedness, syncope or dyspnea on exertion Resp: Denies: dyspnea, productive cough or pain on inspiration GI: Denies: abdominal pain, nausea, vomiting, heartburn or diarrhea : Denies: difficulty urinating or dysuria Musc: Reports: back pain (present since October ), extremity pain (present since October ) and joint pain (R knee; present since October ); Denies: neck pain, extremity swelling or joint swelling Skin/Breast: Denies: rash Neuro: Reports: dizziness; Denies: headache(s), numbness in extremities, weakness in extremities or sensory changes PFSH ED 2 PFSH: Medical History Upper GI bleeding Hallucination Anemia Hypokalemia Hypogonadism in male Abdominal pain Back pain, chronic GERD (gastroesophageal reflux disease) Smoking Iron deficiency anemia Decreased libido Low normal testosterone, 312 in 2021 on testosterone replacement therapy. Urolithiasis Arterial fibromuscular dysplasia Abnormal nuclear stress test Angina pectoris, unstable Erectile dysfunction Dyslipidemia Celiac artery stenosis Hypertension Nephrolithiasis Abdominal aortic aneurysm Coronary artery disease Nicotine dependence, unspecified, uncomplicated Major depressive disorder, recurrent, moderate Generalized anxiety disorder High blood pressure Surgical History H/O heart artery stent Family History Other CAD (coronary artery disease) Denies family history of Diabetes Hyperlipidemia Hypertension Social History Smoking and tobacco/nicotine status: current every day tobacco/nicotine user cigarettes Packs smoked per day: 0.75 Years cigarettes smoked: 20 Quit status (tobacco/nicotine): has tried quititng Number of times tried to quit tobacco: 2 Second hand smoke exposure: Yes Alcohol intake: former Substance/Drug Use: never Household members: spouse Marital status: Current occupational status: disabled Physical Exam 2 Const: COMMON NORMALS: patient oriented x3, no limitations and alert G ENERAL APPEARANCE: cooperative and other (pale, weak, chronically ill appearing) ORIENTATION/CONSCIOUSNESS: Yes awake, Yes oriented to person, Yes oriented to place and Yes oriented to time HENMT: COMMON NORMALS: normocephalic and atraumatic HEAD & SCALP: normal to inspection, normocephalic and atraumatic TEETH & GINGIVA: Yes caries and Yes poor dentition Eye: COMMON NORMALS: no scleral icterus Resp: COMMON NORMALS: normal respiratory effort and clear to auscultation bilaterally AUSCULTATION: clear to auscultation bilaterally Cardio: COMMON NORMALS: regular rate and regular rhythm RATE: regular rate RHYTHM: regular rhythm Back/Pelvis: LUMBAR SPINE/LOWER BACK: Yes lumbar spinal tenderness (chronic since fall in Oct) Extremity: COMMON NORMALS: normal to inspection, capillary refill normal, no clubbing, cyanosis or edema, no calf tenderness and no pedal edema NARRATIVE EXTREMITY EXAM: reports tenderness throughout bilateral LEs-present since a fall in Oct; he is ambulatory with a cane; most of tenderness he states is to R knee/R tib/fib region GENERAL: Yes normal exam except as noted Neuro: COMMON NORMALS: patient oriented x3, moves all extremities, no focal motor deficits and no sensory deficits noted SENSORIUM/ORIENTATION: Yes alert, Yes oriented to person, Yes oriented to place and Yes oriented to time Skin: COMMON NORMALS: no rashes or lesions noted GENERAL SKIN EXAM: no rashes or lesions noted Course 2 Consultations: Consultation #1: Dr. Girard-requested peripheral smear be ran and if schistocytes are present she will likely will require transfer; we no longer have a pathologist and Dr. Pierce has already left for the day; we did have Angely the mill labor supervisor look at her smear and trace schistocytes were present; re-spoke to Dr. Girard who recommends transfer Vital Signs: Vital signs: Vital Signs Temperature 98.0 F 12/29/23 12:16 Pulse Rate 88 12/29/23 14:59 Respiratory Rate 16 12/29/23 14:59 Blood Pressure 161/98 12/29/23 14:59 Pulse Oximetry 93 12/29/23 14:59 Oxygen Delivery Me thod Room Air 12/29/23 14:59 MDM - General Adult Medical Decision Making Patient is a 43-year-old male who presents to ED today with complaint of dizziness, continued weakness, insomnia, and hallucinations. He was recently admitted to our hospital with anemia. He was given blood transfusions at that time. He has failed to improve following his discharge. He was seen by primary care earlier today and based on clinical presentation recommended he come to the ED for further evaluation. Here his hemoglobin is actually little bit higher than it was at discharge however his platelet count has drastically decreased and is now at 50,000. Elevated coags. His LDH is over 800. I did speak to our hospitalist who recommended transfer to a facility with inpatient heme-onc. I have spoken to Dr. Covington in regards to patient and he will assume care and transfer. Medical Records I reviewed the patient's medical records. Lab Data I reviewed the patient's lab results. 12/29/23 13:23 12/29/23 13:23 Laboratory Results WBC 6.48 10^3/uL (3.29-11.43) 12/29/23 13:23 RBC 3.40 10^6/uL (3.85-5.65) L 12/29/23 13:23 Hgb 8.70 g/dL (11.27-16.99) L 12/29/23 13:23 Hct 28.6 % (37-53) L 12/29/23 13:23 MCV 84.1 fl (82-101) 12/29/23 13:23 MCH 25.6 pg (27-33) L 12/29/23 13:23 MCHC 30.4 g/dL (30-55) 12/29/23 13:23 RDW 19.7 % (12.1-15.1) H 12/29/23 13:23 Plt Count 50 10^3/cmm (157-399) L 12/29/23 13:23 MPV Not Reportable 12/29/23 13:23 Lymph % (Auto) Not Reportable 12/29/23 13:23 [place] % (Auto) Not Reportable 12/29/23 13:23 Lymph # (Auto) Not Reportable 12/29/23 13:23 [place] # (Auto) Not Reportable 12/29/23 13:23 Total Counted 100 (0-100) 12/29/23 13:23 Atypical Lymphs % 0.0 % (0-5) 12/29/23 13:23 Absolute Neutrophils 4.7 10^3/cmm (1.4-6.5) 12/29/23 13:23 Segmented Neutrophils 53 % 12/29/23 13:23 Abs Segm Neuts (Man) 3.4 10/cmm (1.6-7.1) 12/29/23 13:23 Band Neutrophils 19.0 % 12/29/23 13:23 Abs Band Neuts (Man) 1.2 10^3/cmm (0.0-1.2) 12/29/23 13:23 Absolute Lymphocytes 0.8 10^3/cmm (1.2-3.4) L 12/29/23 13:23 Lymphocytes (Manual) 13 % 12/29/23 13:23 Monocytes (Manual) 6.0 % 12/29/23 13:23 Absolute Monocytes 0.4 10^3/cmm (0.1-0.6) 12/29/23 13:23 Eosinophils (Manual) 3 % 12/29/23 13:23 Absolute Eosinophils 0.2 10^3/cmm (0.0-0.7) 12/29/23 13:23 Basophils (Manual) 0.0 % 12/29/23 13:23 Absolute Basophils 0.0 10^3/cmm (0.0-0.2) 12/29/23 13:23 Metamyelocytes 5.0 % 12/29/23 13:23 Myelocytes 1.0 % 12/29/23 13:23 Nucleated RBCs 1.0 /100WBC (0-1) 12/29/23 13:23 Platelet Estimate Decreased (Normal) 12/29/23 13:23 Schistocytes Trace 12/29/23 13:23 Peripher Smr Path Cons Sent for review 12/29/23 13:23 PT 17.00 SECONDS (12.1-14.9) H 12/29/23 13:23 INR 1.34 (0.8-1.2) H 12/29/23 13:23 APTT 46.5 SECONDS (23.9-36.7) H 12/29/23 13:23 Sodium 139 mmol/L (136-145) 12/29/23 13:23 Potassium 3.3 mmol/L (3.5-5.1) L 12/29/23 13:23 Chloride 100 mmol/L (98-107) 12/29/23 13:23 Carbon Dioxide 16 mmol/L (22-29) L 12/29/23 13:23 Anion Gap 26.3 (5-19) H 12/29/23 13:23 BUN 12 mg/dL (6-20) 12/29/23 13:23 Creatinine 0.7 mg/dL (0.7-1.2) 12/29/23 13:23 GFR Calculation 123.1 mL/min (90-130) 12/29/23 13:23 Glucose 142 mg/dL (65-115) H 12/29/23 13:23 Calculated Osmolality 290 mOsm/kg (285-295) 12/29/23 13:23 Lactic Acid 1.4 mmol/L (0.5-2.2) 12/29/23 15:00 Calcium 11.5 mg/dL (8.5-10.5) H 12/29/23 13:23 Total Bilirubin 0.7 mg/dL (0.15-1.2) 12/29/23 13:23 AST 19 U/L (0-40) 12/29/23 13:23 ALT 9 U/L (0-41) 12/29/23 13:23 Alkaline Phosphatase 180 U/L (40-130) H 12/29/23 13:23 Lactate Dehydrogenase 861 U/L (135-225) H 12/29/23 13:23 Total Protein 7.3 g/dL (6.6-8.7) 12/29/23 13:23 Albumin 2.6 g/dL (3.5-5.2) L 12/29/23 13:23 Globulin 4.7 g/dL (1.3-4.6) H 12/29/23 13:23 Salicylates < 0.3 mg/dL (3-10) L 12/29/23 13:23 Ethyl Alcohol < 10 mg/dL (0-10) 12/29/23 13:23 Serum Ketones Negative (Negative) 12/29/23 15:00 All radiology interpretation(s) finalized by discharge Discharge Plan Discharge Patient Disposition: Xfer Short-Term Hosp Clinical Impression: Thrombocytopenia Condition: Stable Prescriptions: No Action atorvastatin [Lipitor] 40 mg tablet 40 mg PO DAILY Qty: 90 3RF carvedilol 25 mg tablet 25 mg PO BID 90 Days Qty: 180 3RF Rx Instructions: must administer with a meal/food famotidine 20 mg tablet 20 mg PO DAILY folic acid 1 mg tablet 1 mg PO DAILY Qty: 30 1RF Men's Multivitamin 400-20-300 mcg Tablet 1 tab PO DAILY trazodone 100 mg tablet 100 mg PO BEDTIME buspirone 10 mg tablet 10 mg PO QID PRN (Reason: Anxiety) amlodipine 10 mg Tablet 10 mg PO DAILY 30 Days Qty: 30 1RF hydrocodone-acetaminophen 10-325 mg tablet 1 tab PO Q4H PRN (Reason: Pain) gabapentin 800 mg tablet 800 mg PO TID nitroglycerin [Nitrostat] 0.4 mg Tablet, Sublingual 0.4 mg SUBLINGUAL Q5M PRN (Reason: Chest Pain) Rx Instructions: do not exceed 3 doses per episode ranolazine 500 mg Tablet Extended Release 12 Hr 1,000 mg PO BID@0900,2100 Qty: 120 0RF sucralfate 1 gram tablet 1 g PO BID 84 Days Qty: 168 0RF potassium chloride 20 mEq packet 20 meq PO BEDTIME Qty: 10 0RF omeprazole 40 mg capsule,delayed release(DR/EC) 40 mg PO BIDWMEAL Qty: 112 0RF Referrals: Riccardo Wright MD [Primary Care Provider] - Coding Level of Care Code ED Tint Layer for Chg Fwd Documented by User: Claire Covington MD 12/29/23 15:57 HPI - General Adult 2 General: Chief complaint: Weakness Stated complaint: sent by for blood check Time Seen by Provider: 12/29/23 12:32 PFSH ED 2 PFSH: Medical History Upper GI bleeding Hallucination Anemia Hypokalemia Hypogonadism in male Abdominal pain Back pain, chronic GERD (gastroesophageal reflux disease) Smoking Iron deficiency anemia Decreased libido Low normal testosterone, 312 in 2021 on testosterone replacement therapy. Urolithiasis Arterial fibromuscular dysplasia Abnormal nuclear stress test Angina pectoris, unstable Erectile dysfunction Dyslipidemia Celiac artery stenosis Hypertension Nephrolithiasis Abdominal aortic aneurysm Coronary artery disease Nicotine dependence, unspecified, uncomplicated Major depressive disorder, recurrent, moderate Generalized anxiety disorder High blood pressure Surgical History H/O heart artery stent Family History Other CAD (coronary artery disease) Denies family history of Diabetes Hyperlipidemia Hypertension Social History Smoking and tobacco/nicotine status: current every day tobacco/nicotine user cigarettes Packs smoked per day: 0.75 Years cigarettes smoked: 20 Quit status (tobacco/nicotine): has tried quititng Number of times tried to quit tobacco: 2 Second hand smoke exposure: Yes Alcohol intake: former Substance/Drug Use: never Household members: spouse Marital status: Current occupational status: disabled Course 2 Vital Signs: Vital signs: Vital Signs Temperature 98.0 F 12/29/23 12:16 Pulse Rate 88 12/29/23 14:59 Respiratory Rate 16 12/29/23 14:59 Blood Pressure 161/98 12/29/23 14:59 Pulse Oximetry 93 12/29/23 14:59 Oxygen Delivery Me thod Room Air 12/29/23 14:59 MDM - General Adult Medical Decision Making Patient is a 43-year-old male who presents to ED today with complaint of dizziness, continued weakness, insomnia, and hallucinations. He was recently admitted to our hospital with anemia. He was given blood transfusions at that time. He has failed to improve following his discharge. He was seen by primary care earlier today and based on clinical presentation recommended he come to the ED for further evaluation. Here his hemoglobin is actually little bit higher than it was at discharge however his platelet count has drastically decreased and is now at 50,000. Elevated coags. His LDH is elvated. I saw patient with midlevel agree with her history and physical patient does have low platelets his LDH is elevated here he could have [facility] level care as he needs heme-onc evaluation. Medical Records I reviewed the patient's medical records. Lab Data I reviewed the patient's lab results. 12/29/23 13:23 12/29/23 13:23 Laboratory Results WBC 6.48 10^3/uL (3.29-11.43) 12/29/23 13:23 RBC 3.40 10^6/uL (3.85-5.65) L 12/29/23 13:23 Hgb 8.70 g/dL (11.27-16.99) L 12/29/23 13:23 Hct 28.6 % (37-53) L 12/29/23 13:23 MCV 84.1 fl (82-101) 12/29/23 13:23 MCH 25.6 pg (27-33) L 12/29/23 13:23 MCHC 30.4 g/dL (30-55) 12/29/23 13:23 RDW 19.7 % (12.1-15.1) H 12/29/23 13:23 Plt Count 50 10^3/cmm (157-399) L 12/29/23 13:23 MPV Not Reportable 12/29/23 13:23 Lymph % (Auto) Not Reportable 12/29/23 13:23 [place] % (Auto) Not Reportable 12/29/23 13:23 Lymph # (Auto) Not Reportable 12/29/23 13:23 [place] # (Auto) Not Reportable 12/29/23 13:23 Total Counted 100 (0-100) 12/29/23 13:23 Atypical Lymphs % 0.0 % (0-5) 12/29/23 13:23 Absolute Neutrophils 4.7 10^3/cmm (1.4-6.5) 12/29/23 13:23 Segmented Neutrophils 53 % 12/29/23 13:23 Abs Segm Neuts (Man) 3.4 10/cmm (1.6-7.1) 12/29/23 13:23 Band Neutrophils 19.0 % 12/29/23 13:23 Abs Band Neuts (Man) 1.2 10^3/cmm (0.0-1.2) 12/29/23 13:23 Absolute Lymphocytes 0.8 10^3/cmm (1.2-3.4) L 12/29/23 13:23 Lymphocytes (Manual) 13 % 12/29/23 13:23 Monocytes (Manual) 6.0 % 12/29/23 13:23 Absolute Monocytes 0.4 10^3/cmm (0.1-0.6) 12/29/23 13:23 Eosinophils (Manual) 3 % 12/29/23 13:23 Absolute Eosinophils 0.2 10^3/cmm (0.0-0.7) 12/29/23 13:23 Basophils (Manual) 0.0 % 12/29/23 13:23 Absolute Basophils 0.0 10^3/cmm (0.0-0.2) 12/29/23 13:23 Metamyelocytes 5.0 % 12/29/23 13:23 Myelocytes 1.0 % 12/29/23 13:23 Nucleated RBCs 1.0 /100WBC (0-1) 12/29/23 13:23 Platelet Estimate Decreased (Normal) 12/29/23 13:23 Schistocytes Trace 12/29/23 13:23 Peripher Smr Path Cons Sent for review 12/29/23 13:23 PT 17.00 SECONDS (12.1-14.9) H 12/29/23 13:23 INR 1.34 (0.8-1.2) H 12/29/23 13:23 APTT 46.5 SECONDS (23.9-36.7) H 12/29/23 13:23 Sodium 139 mmol/L (136-145) 12/29/23 13:23 Potassium 3.3 mmol/L (3.5-5.1) L 12/29/23 13:23 Chloride 100 mmol/L (98-107) 12/29/23 13:23 Carbon Dioxide 16 mmol/L (22-29) L 12/29/23 13:23 Anion Gap 26.3 (5-19) H 12/29/23 13:23 BUN 12 mg/dL (6-20) 12/29/23 13:23 Creatinine 0.7 mg/dL (0.7-1.2) 12/29/23 13:23 GFR Calculation 123.1 mL/min (90-130) 12/29/23 13:23 Glucose 142 mg/dL (65-115) H 12/29/23 13:23 Calculated Osmolality 290 mOsm/kg (285-295) 12/29/23 13:23 Lactic Acid 1.4 mmol/L (0.5-2.2) 12/29/23 15:00 Calcium 11.5 mg/dL (8.5-10.5) H 12/29/23 13:23 Total Bilirubin 0.7 mg/dL (0.15-1.2) 12/29/23 13:23 AST 19 U/L (0-40) 12/29/23 13:23 ALT 9 U/L (0-41) 12/29/23 13:23 Alkaline Phosphatase 180 U/L (40-130) H 12/29/23 13:23 Lactate Dehydrogenase 861 U/L (135-225) H 12/29/23 13:23 Total Protein 7.3 g/dL (6.6-8.7) 12/29/23 13:23 Albumin 2.6 g/dL (3.5-5.2) L 12/29/23 13:23 Globulin 4.7 g/dL (1.3-4.6) H 12/29/23 13:23 Salicylates < 0.3 mg/dL (3-10) L 12/29/23 13:23 Ethyl Alcohol < 10 mg/dL (0-10) 12/29/23 13:23 Serum Ketones Negative (Negative) 12/29/23 15:00 All radiology interpretation(s) finalized by discharge Critical Care Time 2 Critical Care Time: Critical Care Time: Yes Total Critical Care Time: 45 Attestation: The high probability of a clinically significant, sudden or life threatening deterioration of the patient's hematology system(s) required my full and direct attention, intervention and personal management. The critical care time is as shown. This time is in addition to time spent performing any reported procedures but includes the following: [x] Data and vital sign review and interpretation [x] Patient assessment, examination and intervention [x] Documentation [x] Medication orders and management Discharge Plan Discharge Patient Disposition: Xfer Short-Term Hosp Clinical Impression: Thrombocytopenia Condition: Stable Prescriptions: No Action atorvastatin [Lipitor] 40 mg tablet 40 mg PO DAILY Qty: 90 3RF carvedilol 25 mg tablet 25 mg PO BID 90 Days Qty: 180 3RF Rx Instructions: must administer with a meal/food famotidine 20 mg tablet 20 mg PO DAILY folic acid 1 mg tablet 1 mg PO DAILY Qty: 30 1RF Men's Multivitamin 400-20-300 mcg Tablet 1 tab PO DAILY trazodone 100 mg tablet 100 mg PO BEDTIME buspirone 10 mg tablet 10 mg PO QID PRN (Reason: Anxiety) amlodipine 10 mg Tablet 10 mg PO DAILY 30 Days Qty: 30 1RF hydrocodone-acetaminophen 10-325 mg tablet 1 tab PO Q4H PRN (Reason: Pain) gabapentin 800 mg tablet 800 mg PO TID nitroglycerin [Nitrostat] 0.4 mg Tablet, Sublingual 0.4 mg SUBLINGUAL Q5M PRN (Reason: Chest Pain) Rx Instructions: do not exceed 3 doses per episode ranolazine 500 mg Tablet Extended Release 12 Hr 1,000 mg PO BID@0900,2100 Qty: 120 0RF sucralfate 1 gram tablet 1 g PO BID 84 Days Qty: 168 0RF potassium chloride 20 mEq packet 20 meq PO BEDTIME Qty: 10 0RF omeprazole 40 mg capsule,delayed release(DR/EC) 40 mg PO BIDWMEAL Qty: 112 0RF Referrals: Riccardo Wright MD [Primary Care Provider] - Coding Level of Care Code ED Tint Layer for [place]
--- NOTE | 2023-12-29 13:34 | ECG_ITS ---
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 Measurements Intervals [place] Rate: 88 P: 50 NM: 139 QRS: 46 QRSD: 105 T: 88 QT: 299 QTc: 363 Interpretive Statements SINUS RHYTHM LEFT ATRIAL ENLARGEMENT [-0.15mV P-WAVE IN V1/V2] POSSIBLE LEFT VENTRICULAR HYPERTROPHY [VOLTAGE CRITERIA PLUS LAE OR QRS WIDENING] INFERIOR MYOCARDIAL INFARCTION , PROBABLY OLD [40+ ms Q WAVE AND/OR ST/T ABNORMALITY IN II/aVF] Compared to ECG 04/28/2023 05:49:16 No significant changes Electronically Signed On 12-29-2023 18:03:58 AVIONICS TECHNICIAN by Mary Leong M.D. [email or web address]
[2023-12-29 13:46] LABS: Hematocrit 28.6 % (37-53); Mean Corpuscular HGB Conc 30.4 g/dL (30-55); Mean Corpuscular Hemoglobin 25.6 pg (27-33); Mean Corpuscular Volume 84.1 fl (82-101); Platelet Count 50 10^3/cmm (157-399); Red Cell Distribution Width 19.7 % (12.1-15.1); White Blood Count 6.48 10^3/uL (3.29-11.43)
[2023-12-29 14:06] LABS: Alanine Aminotransferase 9 U/L (0-41); Albumin Level 2.6 g/dL (3.5-5.2); Alkaline Phosphatase 180 U/L (40-130); Anion Gap 26.3 (5-19); Aspartate Amino Transferase 19 U/L (0-40); Blood Urea Nitrogen 12 mg/dL (6-20); Calcium 11.5 mg/dL (8.5-10.5); Carbon Dioxide 16 mmol/L (22-29); Chloride 100 mmol/L (98-107); Creatinine Clr Calc Pharmacy 131.6398; Globulin 4.7 g/dL (1.3-4.6); Glomerular Filtration Rate 123.1 mL/min (90-130); Glucose 142 mg/dL (65-115); Osmolality Calculated 290 mOsm/kg (285-295); Potassium 3.3 mmol/L (3.5-5.1); Sodium 139 mmol/L (136-145); Total Bilirubin 0.7 mg/dL (0.15-1.2); Total Protein 7.3 g/dL (6.6-8.7)
[2023-12-29 14:24] LABS: Slide Review Slide Review Perform
[2023-12-29 14:25] LABS: Absolute Eosinophils 0.2 10^3/cmm (0.0-0.7); Absolute Neutrophil 4.7 10^3/cmm (1.4-6.5); Absolute Segmented Neutrophil 3.4 10/cmm (1.6-7.1); Band Neutrophils Absolute 1.2 10^3/cmm (0.0-1.2); Eosinophils 3 %; Lymphocytes 13 %; Lymphocytes Absolute 0.8 10^3/cmm (1.2-3.4); Monocytes Absolute 0.4 10^3/cmm (0.1-0.6); Platelet Estimate Decreased (Normal); Segmented Neutrophils 53 %; Total Cells Counted 100 (0-100)
[2023-12-29 15:03] LABS: Schistocytes Trace
[2023-12-29 15:05] LABS: LAB Peripheral Smear Sent for Review
[2023-12-29 15:30] LABS: INR 1.34 (0.8-1.2)
[2023-12-29 15:31] LABS: Partial Thromboplastin Time 46.5 SECONDS (23.9-36.7)
[2023-12-29] MEDS: sodium chloride 0.9% 1,000 ML 999 ML IV (15:35)
[2023-12-29 15:41] LABS: Alcohol Level < 10 mg/dL (0-10); Salicylate < 0.3 mg/dL (3-10)
[2023-12-29 15:42] LABS: Ketone (Acetest) Serum Negative (Negative); Lactic Sepsis W/Reflex 1.4 mmol/L (0.5-2.2)
[2023-12-29 15:47] LABS: Lactate Dehydrogenase 861 U/L (135-225)
[2023-12-29] MEDS: HYDROcodone-acetaminophen 5-325 mg Tablet 1 TAB PO ×2 (16:22→16:56)
[2023-12-29 17:29] LABS: Add Urine Microscopic? YES; Bilirubin Urine Neg (Negative); Blood Urine Neg (Negative); Glucose Urine UA Norm (Normal); Ketones Urine Negative (Negative); Leukocyte Esterase Urine Negative (Negative); Nitrate Urine Negative (Negative); Protein Urine Trace (Negative); Urine Appearance Clear (CLEAR); Urine Color Yellow (Yellow); Urobilinogen Urine Norm (Negative); pH Urine 5 (5-7)
[2023-12-29 17:30] LABS: Add Urine Culture? No; Bacteria Urine TRACE /hpf; Fine Granular Casts Urine RARE /lpf; Hyaline Casts Urine 0-4 /lpf
[2023-12-29] MEDS: HYDROmorphone 1 mg/mL INJ 1 mL IVP ×2 (18:49→23:10)
[2024-01-02 21:34] LABS: Heparin-Induced Platelet AB Weak Positive (Negative)
== END 2023-12-29 23:39 | disposition short-term general hospital (02) ==
PROVIDERS: Physician Assistant; Emergency Provider Emergency Medicine; PCP Family Medicine
DX: D69.6 Thrombocytopenia, unspecified (principal); F17.210 Nicotine dependence, cigarettes, uncomplicated; E78.5 Hyperlipidemia, unspecified; I25.10 Atherosclerotic heart disease of native coronary artery without angina pectoris; I10 Essential (primary) hypertension
CPT/HCPCS: 36415; 73562; 73590; 80053; 80307; 81001; 82009; 83605; 83615; 85007; 85025; 85610; 85730; 86022; 93005; 96361; 96374; 96376; 99285; J1170; J7030